=== PATIENT | male | born 1935 | race Caucasian/White ===

== ENCOUNTER 2021-07-02 19:52 | Emergency (ER) | payer MEDICARE, SELFPAY ==
[2021-07-02] VITALS (11 sets, daily range): BP systolic 131–164; BP diastolic 58–93; PULSE 72–91; RESP 11–25; TEMP 36.9; O2SAT 89–100; BMI 29.9
--- NOTE | 2021-07-02 21:14 | DI.RAD.S_ITS ---
PROCEDURE: XR CHEST 1V INDICATIONS: weakness TECHNIQUE: One view of the chest was acquired. COMPARISON: None. FINDINGS: Surgical changes and devices: None. Lungs and pleura: There is a triangular-shaped opacity projecting over the left hemidiaphragm measuring up to 1.4 cm. Lungs are otherwise clear. No pleural effusions or pneumothorax. Mediastinum: Mediastinal contours appear normal. Heart size is normal. Bones and chest wall: No suspicious bony lesions. Overlying soft tissues appear unremarkable. IMPRESSION: 1. Triangular shaped opacity within the left lung base is nonspecific and may represent possible scarring. However, short-term follow-up is recommended to demonstrate stability or resolution. 2. Elsewhere, no acute cardiopulmonary disease. Dictated by: Michele Wen M.D. on 07/02/2021 at 22:49 Approved by: Michele Wen M.D. on 07/02/2021 at 22:51
[2021-07-02 21:58] LABS: Hematocrit 40.7 % (41-53); Mean Corpuscular HGB Conc 31.9 % (30-36); Mean Corpuscular Hemoglobin 29.2 PG (26-34); Mean Corpuscular Volume 91.5 fL (80-100); Platelet Count 229 X10^3/uL (150-400); Red Blood Cell Count 4.45 X10^6/uL (4.5-5.9); Red Cell Distribution Width 14.1 % (11.6-14.8)
[2021-07-02 21:59] LABS: Add Manual Diff / Slide Review YES
[2021-07-02 22:00] LABS: White Blood Cell Count 35.4 X10^3/uL (4.5-11.0)
[2021-07-02 22:05] LABS: Alanine Aminotransferase 17 IU/L (<50); Albumin 4.6 g/dL (3.5-5.0); Albumin Globulin Ratio 1.2 (1.0-2.8); Alkaline Phosphatase 192 U/L (38-126); Aspartate Aminotransferase 26 IU/L (17-59); BUN Creatinine Ratio 27.7 (6-22); Bilirubin Total 0.6 mg/dL (0.2-1.3); Blood Urea Nitrogen 70 mg/dL (9-20); Calcium 10.7 mg/dL (8.4-10.2); Carbon Dioxide 13 mmol/L (22-32); Chloride 111 mmol/L (98-107); Creatine Kinase 53 U/L (55-170); Estimated Glomerular Filt Rate 25 mL/min (>60); Globulin 3.7 g/dL (1.7-4.1); Glucose 117 mg/dL (80-110); HEMOLYSIS < 15 (0-50); Lipase 319 U/L (23-300); Sodium 134 mmol/L (137-145); Total Protein 8.3 g/dL (6.3-8.2)
--- NOTE | 2021-07-02 22:06 | ED.WEAKNESS ---
HPI - Weakness General Chief complaint: Weakness Stated complaint: Worsening Weakness x3 days Time Seen by Provider: 07/02/21 21:14 Source: patient Mode of arrival: Wheelchair History of Present Illness HPI Narrative: 85-year-old male Nonsmoker with history of HTN, hyperlipidemia presents with generalized weakness gradually worsening over the past few months. He states that he feels like his joints are tired and this has been going on for quite some time, and he met with his orthopedist today and has an appointment with his primary care provider early in the week. He denies any change in his medications or diet. He denies any headache, blurred vision or trouble with speech. He denies any chest pain or shortness of breath. He denies any focal problems such as unilateral numbness, tingling or weakness. He states that generally, and on the whole, and very nonspecifically he feels weak. 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 It was placed originally about 5 years ago and failed 2 months ago. He does not suffer urinary retention but instead constantly leaks urine. He was scoped by his urologist about 10 days ago and there were no abnormalities noted in his urethra. He is scheduled for a revision in July. He had been taking Motrin 800mg TID for quite some time but stopped about 4 days ago. He had been taking KCL 20meq BID until this morning. Related Data Home Medications Medication Instructions Recorded Confirmed Prevagen 20 mg PO DAILY 07/03/21 amlodipine 10 mg tablet 10 mg PO DAILY 07/03/21 07/03/21 aspirin 81 mg capsule 81 mg PO DAILY 07/03/21 07/03/21 cholecalciferol (vitamin D3) 50 50 mcg PO DAILY 07/03/21 07/03/21 mcg (2,000 unit) capsule (Vitamin D3) docusate sodium 100 mg capsule 100 mg PO BID 07/03/21 07/03/21 (Colace) ibuprofen 800 mg tablet 800 mg PO Q8H PRN 07/03/21 07/03/21 latanoprost 0.005 % eye drops 1 drp OPHTHALMIC (EYE) DAILY 07/03/21 07/03/21 lisinopril 40 mg tablet 40 mg PO DAILY 07/03/21 07/03/21 metoprolol tartrate 25 mg tablet 25 mg PO BID 07/03/21 07/03/21 [id number] acid 0.4 1 tab PO DAILY 07/03/21 07/03/21 mg-lycopene 300 mcg-lutein 250 mcg tablet (Centrum Silver) nystatin 100,000 unit/gram topical 1 applic TOPICAL BID 07/03/21 07/03/21 powder omega-3 fatty acids 1,000 mg PO DAILY 07/03/21 07/03/21 potassium chloride 20 mEq 20 meq PO BID 07/03/21 07/03/21 tablet,extended release rosuvastatin 40 mg tablet 40 mg PO DAILY 07/03/21 07/03/21 tadalafil 10 mg tablet 10 mg PO DAILY PRN 07/03/21 07/03/21 timolol 0.5 % eye drops 1 drp OPHTHALMIC (EYE) DAILY 07/03/21 07/03/21 triamterene 75 1 tab PO QAM 07/03/21 07/03/21 mg-hydrochlorothiazide 50 mg tablet Allergies Allergy/AdvReac Type Severity Reaction Status Date / Time myacin family Allergy Blister Uncoded 07/02/21 20:03 Review of Systems Review of Systems Narrative: GENERAL: Denies chills, fatigue, malaise, fever, sweats. HEENT: Denies sinus pain, ear pain, sore throat, difficulty swallowing, dizziness. RESPIRATORY: Denies dyspnea, cough, wheezing, hemoptysis, sputum. CARDIOVASCULAR: Denies chest pain, palpitations, orthopnea, edema, GASTROINTESTINAL: Denies nausea, vomiting, abdominal pain, diarrhea, constipation, melena. : Denies dysuria, frequency, incontinence, hematuria, urinary retention. MUSCULOSKELETAL: See HPI SKIN: Denies rash, skin lesions, or other NEUROLOGIC: Denies weakness, headache, numbness, change in speech, confusion, seizures, incoordination. PSYCHIATRIC: No concerning psychosocial issues. 12 point review of systems is negative except for those stated above Patient History Social History Smoking Status: Never smoker Smoking Status: Never smoker alcohol intake frequency: holidays/special occasions only Substance Use Type: does not use Exam Narrative Exam Narrative: GENERAL: [85 year old patient appears stated age. Well-developed patient, in mild distress. HEAD: Atraumatic. Normocephalic. EYES: Pupils equal round and reactive. Extraocular motions intact. No scleral icterus. No injection or drainage. ENT: Nose without bleeding, purulent drainage. Throat without erythema, tonsillar hypertrophy or exudate. Airway patent. NECK: Trachea midline. Non tender CARDIOVASCULAR: Regular rate and rhythm without murmurs, gallops, or rubs. RESPIRATORY: Clear to auscultation. Breath sounds equal bilaterally. No wheezes, rales, or rhonchi. GASTROINTESTINAL: Abdomen soft, non-tender, nondistended. EXTREMITIES: No edema or joint tenderness. BACK: Nontender without deformity or crepitance. No flank tenderness. NEURO: AOx3. SKIN: No rash or erythema of visible areas Initial Vital Signs Initial Vital Signs: Vital Signs Temperature 98.4 F 07/02/21 20:03 Pulse Rate 87 07/02/21 20:03 Respiratory Rate 15 07/02/21 20:03 Blood Pressure 155/93 H 07/02/21 20:03 Pulse Oximetry 94 07/02/21 20:03 Course Course Course Narrative: Fractional Excretion of Sodium (FENa) from [employer] on 07/03/2021 All calculations should be rechecked by clinician prior to use RESULT SUMMARY: 1.8 % FENa Intrinsic e.g. ATN, AIN, glomerulonephritides INPUTS: Serum sodium ?> 134 mEq/L Serum creatinine ?> 2.53 mg/dL Urine sodium ?> 104 mEq/L Urine creatinine ?> 108.6 mg/dL Orders Ordered: ED Orders 07/02/21 21:14 XR chest 1V Stat EKG-12 Lead Stat 07/02/21 21:40 Complete Blood Count AUTO DIFF Stat Comprehensive Metabolic Panel Stat Lipase Stat Troponin & CK Cardiac Panel Stat 07/02/21 22:21 US renal complete Stat 07/02/21 22:32 COVID19 -Nasal RAPID/Pre-Proc Stat 07/02/21 23:30 Creatinine Urine Random Stat Sodium Urine Random Stat 07/03/21 00:56 EKG-12 Lead Stat 07/03/21 01:44 BMP [Basic Metabolic Panel] Stat 07/03/21 03:30 EKG-12 Lead Stat 07/03/21 03:43 VBG [Venous Blood Gas] Stat 07/03/21 04:25 BMP [Basic Metabolic Panel] Stat 07/03/21 04:30 VBG [Venous Blood Gas] Stat Sodium Chloride (Normal Saline 0.9%) 1,000 mls @ 150 mls/hr IV CONT MANOHAR Last Infusion: 07/03/21 05:08 Dose: 0 mls/hr Documented by: Infusion: 07/03/21 00:17 Dose: 150 mls/hr Documented by: Infusion: 07/02/21 23:01 Dose: 0 mls/hr Documented by: Admin: 07/02/21 22:08 Dose: 150 mls/hr Documented by: GILDARDO Dextrose ([email or web address]) 250 mls @ 999 mls/hr IV PRN PRN PRN Reason: Hypoglycemia Last Infusion: 07/02/21 23:11 Dose: 0 mls/hr Documented by: Admin: 07/02/21 22:52 Dose: 250 mls/hr Documented by: GILDARDO Sodium Bicarbonate 100 meq/ (Dextrose) 1,100 mls @ 150 mls/hr IV CONT MANOHAR Last Admin: 07/03/21 03:58 Dose: 150 mls/hr Documented by: SHAWNA Discontinued Medications Albuterol (Albuterol 2.5 Mg/3 Ml Neb (Adult)) 20 mg INH NOW ONE Stop: 07/02/21 22:22 Last Admin: 07/02/21 23:15 Dose: 20 mg Documented by: GILDARDO Furosemide (Furosemide 40 Mg/4 Ml Vial) 40 mg IV NOW ONE Stop: 07/02/21 22:22 Last Admin: 07/02/21 22:56 Dose: 40 mg Documented by: GILDARDO Sodium Chloride (Normal Saline 0.9%) 1,000 mls @ 1,000 mls/hr IV BOLUS ONE Stop: 07/02/21 23:20 Last Infusion: 07/03/21 00:10 Dose: 0 mls/hr Documented by: Admin: 07/02/21 23:01 Dose: 1,000 mls/hr Documented by: GILDARDO Calcium Gluconate 9.3 meq/ (Sodium Chloride) 70 mls @ 140 mls/hr IV NOW ONE Stop: 07/02/21 22:50 Last Infusion: 07/02/21 23:54 Dose: 0 mls/hr Documented by: Admin: 07/02/21 23:16 Dose: 140 mls/hr Documented by: GILDARDO Insulin Human Regular (Insulin Regular 100 Unit/Ml 3 Ml Vial) 5 unit IV NOW ONE Stop: 07/02/21 22:22 Last Admin: 07/02/21 23:09 Dose: 5 unit Documented by: GILDARDO Cosigned by: DAQUAN Sodium Bicarbonate (Sodium Bicarb 8.4% Syringe) 150 meq IV NOW ONE Stop: 07/03/21 03:18 Last Admin: 07/03/21 03:58 Dose: 150 meq Documented by: SHAWNA Consultations Consultation #1: call to hospitalist upon receipt of repeat labs, given minimal improvement and FeNa of 1.8% recommends transfer to facility with nephrology Consultation #2: call to Dr. Walls (Hospitalist at [facility]). Requests Bicarb (3 amps) with drip at 150, repeat labs, improved K/acidemia before transfer possible. Currently no opportunities for dialysis given backed up service Consultation #3: we have spoken with Dr. Walls again and relayed improved EKG, and VBG (chemistries still pending). She is happy to accept patient in transfer Vital Signs Vital signs: Vital Signs - 8 hr 07/02/21 21:30 07/02/21 22:00 07/02/21 22:01 Pulse Rate 72 80 81 Respiratory Rate Blood Pressure 162/70 H 164/76 H Pulse Oximetry 97 97 07/02/21 22:30 07/02/21 23:00 07/02/21 23:04 Pulse Rate 72 78 79 Respiratory Rate 23 25 H Blood Pressure 131/58 L Pulse Oximetry 96 96 07/02/21 23:20 07/02/21 23:30 07/03/21 00:00 Pulse Rate 79 91 H 104 H Respiratory Rate 25 H 11 L 22 Blood Pressure 133/63 129/62 Pulse Oximetry 100 97 07/03/21 00:30 07/03/21 01:00 07/03/21 01:30 Pulse Rate 102 H 99 H 97 H Respiratory Rate 18 21 19 Blood Pressure 141/61 H 129/60 141/63 H Pulse Oximetry 96 97 97 07/03/21 02:00 07/03/21 02:30 07/03/21 03:00 Pulse Rate 99 H 100 H 104 H Respiratory Rate 12 16 25 H Blood Pressure 137/63 161/72 H 151/65 H Pulse Oximetry 95 96 96 07/03/21 03:30 Pulse Rate 101 H Respiratory Rate 13 Blood Pressure 123/58 L Pulse Oximetry 98 MDM - Weakness Lab Data Result diagrams: 07/02/21 21:40 07/03/21 04:25 Labs: Lab Results 07/02/21 07/02/21 07/02/21 Range/Units 21:40 21:40 22:32 WBC 35.4 H* (4.5-11.0) X10^3/uL RBC 4.45 L (4.5-5.9) X10^6/uL Hgb 13.0 L (13.5-17.5) g/dL Hct 40.7 L (41-53) % MCV 91.5 (80-100) fL MCH 29.2 (26-34) PG MCHC 31.9 (30-36) % RDW 14.1 (11.6-14.8) % Plt Count 229 (150-400) X10^3/uL Neut % (Auto) Not Reportable Lymph % (Auto) Not Reportable [place] % (Auto) Not Reportable Eos % (Auto) Not Reportable Baso % (Auto) Not Reportable Lymph # (Auto) Not Reportable [place] # (Auto) Not Reportable Baso # (Auto) Not Reportable Total Counted 100 Seg Neutrophils % 21.0 L (38-70) % Lymphocytes % (Manual) 76.0 H (25-45) % Monocytes % (Manual) 3.0 (2-11) % Neutrophils # (Manual) 7434 H (2697-3413) /uL Smudge Cells 1+ H RBC Morphology Normal morphology VBG pH (7.33-7.43) VBG pCO2 (45-50) mmHg VBG pO2 (35-45) mmHg VBG HCO3 (23-28) mmol/L VBG Total CO2 (24-29) mmol/L VBG O2 Saturation (70-75) % VBG Base Excess (0-4) mmol/L Sodium 134 L (137-145) mmol/L Potassium 8.6 H* (3.4-5.1) mmol/L Chloride 111 H (98-107) mmol/L Carbon Dioxide 13 L (22-32) mmol/L BUN 70 H (9-20) mg/dL Creatinine 2.53 H (0.66-1.25) mg/dL Estimated GFR 25 L (>60) mL/min BUN/Creatinine Ratio 27.7 H (6-22) Glucose 117 H (80-110) mg/dL Calcium 10.7 H (8.4-10.2) mg/dL Total Bilirubin 0.6 (0.2-1.3) mg/dL AST 26 (17-59) IU/L ALT 17 (<50) IU/L Alkaline Phosphatase 192 H (38-126) U/L Total Creatine Kinase 53 L (55-170) U/L CK-MB (CK-2) TNP CK-MB (CK-2) Rel Index TNP Troponin I 0.016 (0.01-0.034) ng/mL Total Protein 8.3 H (6.3-8.2) g/dL Albumin 4.6 (3.5-5.0) g/dL Globulin 3.7 (1.7-4.1) g/dL Albumin/Globulin Ratio 1.2 (1.0-2.8) Lipase 319 H (23-300) U/L Ur Random Sodium (30-90) mmol/L Urine Creatinine mg/dL SARS-CoV-2 (PCR) Negative (Negative) 07/02/21 07/03/21 07/03/21 Range/Units 23:30 01:44 03:43 WBC (4.5-11.0) X10^3/uL RBC (4.5-5.9) X10^6/uL Hgb (13.5-17.5) g/dL Hct (41-53) % MCV (80-100) fL MCH (26-34) PG MCHC (30-36) % RDW (11.6-14.8) % Plt Count (150-400) X10^3/uL Neut % (Auto) Lymph % (Auto) [place] % (Auto) Eos % (Auto) Baso % (Auto) Lymph # (Auto) [place] # (Auto) Baso # (Auto) Total Counted Seg Neutrophils % (38-70) % Lymphocytes % (Manual) (25-45) % Monocytes % (Manual) (2-11) % Neutrophils # (Manual) (5558-5447) /uL Smudge Cells RBC Morphology VBG pH 7.21 L (7.33-7.43) VBG pCO2 35.6 L (45-50) mmHg VBG pO2 28 L (35-45) mmHg VBG HCO3 14 L (23-28) mmol/L VBG Total CO2 15 L (24-29) mmol/L VBG O2 Saturation 42 L (70-75) % VBG Base Excess -13.0 L (0-4) mmol/L Sodium 136 L (137-145) mmol/L Potassium 7.7 H* (3.4-5.1) mmol/L Chloride 112 H (98-107) mmol/L Carbon Dioxide 14 L (22-32) mmol/L BUN 66 H (9-20) mg/dL Creatinine 2.40 H (0.66-1.25) mg/dL Estimated GFR 26 L (>60) mL/min BUN/Creatinine Ratio 27.5 H (6-22) Glucose 115 H (80-110) mg/dL Calcium 10.9 H (8.4-10.2) mg/dL Total Bilirubin (0.2-1.3) mg/dL AST (17-59) IU/L ALT (<50) IU/L Alkaline Phosphatase (38-126) U/L Total Creatine Kinase (55-170) U/L CK-MB (CK-2) CK-MB (CK-2) Rel Index Troponin I (0.01-0.034) ng/mL Total Protein (6.3-8.2) g/dL Albumin (3.5-5.0) g/dL Globulin (1.7-4.1) g/dL Albumin/Globulin Ratio (1.0-2.8) Lipase (23-300) U/L Ur Random Sodium 104 H (30-90) mmol/L Urine Creatinine 108.6 mg/dL SARS-CoV-2 (PCR) (Negative) 07/03/21 07/03/21 Range/Units 04:25 04:30 WBC (4.5-11.0) X10^3/uL RBC (4.5-5.9) X10^6/uL Hgb (13.5-17.5) g/dL Hct (41-53) % MCV (80-100) fL MCH (26-34) PG MCHC (30-36) % RDW (11.6-14.8) % Plt Count (150-400) X10^3/uL Neut % (Auto) Lymph % (Auto) [place] % (Auto) Eos % (Auto) Baso % (Auto) Lymph # (Auto) [place] # (Auto) Baso # (Auto) Total Counted Seg Neutrophils % (38-70) % Lymphocytes % (Manual) (25-45) % Monocytes % (Manual) (2-11) % Neutrophils # (Manual) (4705-2966) /uL Smudge Cells RBC Morphology VBG pH 7.27 L (7.33-7.43) VBG pCO2 45.9 (45-50) mmHg VBG pO2 27 L (35-45) mmHg VBG HCO3 21 L (23-28) mmol/L VBG Total CO2 22 L (24-29) mmol/L VBG O2 Saturation 42 L (70-75) % VBG Base Excess -6.0 L (0-4) mmol/L Sodium 138 (137-145) mmol/L Potassium 5.9 H D (3.4-5.1) mmol/L Chloride 108 H (98-107) mmol/L Carbon Dioxide 21 L (22-32) mmol/L BUN 66 H (9-20) mg/dL Creatinine 2.18 H (0.66-1.25) mg/dL Estimated GFR 29 L (>60) mL/min BUN/Creatinine Ratio 30.3 H (6-22) Glucose 126 H (80-110) mg/dL Calcium 10.1 (8.4-10.2) mg/dL Total Bilirubin (0.2-1.3) mg/dL AST (17-59) IU/L ALT (<50) IU/L Alkaline Phosphatase (38-126) U/L Total Creatine Kinase (55-170) U/L CK-MB (CK-2) CK-MB (CK-2) Rel Index Troponin I (0.01-0.034) ng/mL Total Protein (6.3-8.2) g/dL Albumin (3.5-5.0) g/dL Globulin (1.7-4.1) g/dL Albumin/Globulin Ratio (1.0-2.8) Lipase (23-300) U/L Ur Random Sodium (30-90) mmol/L Urine Creatinine mg/dL SARS-CoV-2 (PCR) (Negative) Point of Care Testing Glucose POC 119 Imaging Data Renal US: Radiologist Impression: [address] [address] Ultrasound Report Signed Patient: Jamal Lin MR#: [id number] : 1935 Acct:[id number] Age/Sex: 85 / M Date of Service: 07/02/21 Loc: ED Accession Number: [id number] ?? Procedure: US renal complete Ordering Provider: Art Sales D.O. PROCEDURE:? US RENAL COMPLETE ? INDICATIONS:? ACUTE RENAL FAILURE ? TECHNIQUE:? Real-time scanning was performed of the kidneys and bladder, with image documentation.? ? COMPARISON:? None. ? FINDINGS:? ? Kidneys:? Right kidney measures 11.8 cm long; left kidney measures 11.6 cm long.? Right renal cortical thickness is 1.5 cm; left renal cortical thickness is 1.5 cm.? Renal cortical echotexture appears grossly within normal limits.? No hydronephrosis.? ? Bladder:? Pre-void bladder was nondistended.? Limited evaluation for intraluminal masses or stones.? On pre-void images, neither ureteral jets are noted with color Doppler interrogation.? (Of note, ureteral jets may not be detectable in up to 25% of cases due to insufficient differences in specific gravity between ureteral and bladder urine).? ? Miscellaneous:? No free pelvic fluid.? ? IMPRESSION:? ? 1. No evidence of hydronephrosis. ? 2. Bilateral mild renal cortical thinning.? ? ? Dictated by: Michele Wen M.D. on 07/03/2021 at 0:10 ? ? Approved by: Michele Wen M.D. on 07/03/2021 at 0:16 ? ECG Data Interpretation: EKG 1 (2121): EKG is normal sinus rhythm rate [70 ] and free of any signs of ischemia or ectopy. No ST segmental elevation or depression. No T wave inversions. NE 152. QRS 164. T waves peaked EKG 2 (111): EKG is normal sinus rhythm rate [103 ] and free of any signs of ischemia or ectopy. No ST segmental elevation or depression. No T wave inversions. NE 126. QRS 140. T waves improved. EKG 3 (7083): EKG is normal sinus rhythm rate [ 100] and free of any signs of ischemia or ectopy. No ST segmental elevation or depression. No T wave inversions. T waves improved. NE 112. QRS 132 Critical Care Time Critical Care Time Critical Care Time: Yes Total Critical Care Time: 60 Attestation: The high probability of a clinically significant, sudden or life threatening deterioration of the [/CV] system(s) required my full and direct attention, intervention and personal management. The aggregate critical care time was 60] minutes. This time is in addition to time spent performing reported procedures but includes the following: [x] Data Review and interpretation [x] Patient assessment and monitoring of vital signs [x] Documentation [x] Medication orders and management Discharge Plan Departure Patient Disposition: [facility] Clinical Impression: Acute hyperkalemia, Metabolic acidosis, Acute kidney injury Prescriptions: No Action latanoprost 0.005 % Drops 1 drp OPHTHALMIC (EYE) DAILY 0RF ibuprofen 800 mg Tablet 800 mg PO Q8H PRN (Reason: Pain, Moderate) 0RF amlodipine 10 mg Tablet 10 mg PO DAILY 0RF timolol 0.5 % Drops 1 drp OPHTHALMIC (EYE) DAILY 0RF docusate sodium [Colace] 100 mg Capsule 100 mg PO BID 0RF triamterene-hydrochlorothiazid 75-50 mg Tablet 1 tab PO QAM 0RF nystatin 100,000 unit/gram Powder 1 applic TOPICAL BID 0RF lisinopril 40 mg tablet 40 mg PO DAILY 0RF Label Comments: Take 1 tablet by mouth once a day Fish Oil Capsule 1,000 mg PO DAILY 0RF rosuvastatin 40 mg Tablet 40 mg PO DAILY 0RF tadalafil 10 mg Tablet 10 mg PO DAILY PRN (Reason: intercourse) 0RF Rx Instructions: administer approximately 30min before sexual activity; do not use more than 1 dose per 24hrs metoprolol tartrate 25 mg Tablet 25 mg PO BID 0RF Centrum Silver 0.4-300-250 mg-mcg-mcg Tablet 1 tab PO DAILY 0RF cholecalciferol (vitamin D3) [Vitamin D3] 50 mcg (2,000 unit) Capsule 50 mcg PO DAILY 0RF potassium chloride 20 mEq Tablet Extended Release 20 meq PO BID 0RF aspirin 81 mg Capsule 81 mg PO DAILY 0RF Prevagen 20 mg 20 mg PO DAILY 0RF Referrals: Harpreet Stanley MD [Primary Care Provider] -
[2021-07-02] MEDS: SODIUM CHLORIDE 0.9% 1,000 ML 150 ML IV (22:08)
[2021-07-02 22:16] LABS: Neutrophils Absolute Manual 7434 /uL (3000-5900); Total Cells Counted 100; Troponin I 0.016 ng/mL (0.01-0.034)
[2021-07-02 22:17] LABS: RBC Morphology Normal Morphology; Smudge Cells 1+
[2021-07-02 22:20] LABS: Potassium 8.6 mmol/L (3.4-5.1)
--- NOTE | 2021-07-02 22:21 | DI.US.S_ITS ---
PROCEDURE: US RENAL COMPLETE INDICATIONS: ACUTE RENAL FAILURE TECHNIQUE: Real-time scanning was performed of the kidneys and bladder, with image documentation. COMPARISON: None. FINDINGS: Kidneys: Right kidney measures 11.8 cm long; left kidney measures 11.6 cm long. Right renal cortical thickness is 1.5 cm; left renal cortical thickness is 1.5 cm. Renal cortical echotexture appears grossly within normal limits. No hydronephrosis. Bladder: Pre-void bladder was nondistended. Limited evaluation for intraluminal masses or stones. On pre-void images, neither ureteral jets are noted with color Doppler interrogation. (Of note, ureteral jets may not be detectable in up to 25% of cases due to insufficient differences in specific gravity between ureteral and bladder urine). Miscellaneous: No free pelvic fluid. IMPRESSION: 1. No evidence of hydronephrosis. 2. Bilateral mild renal cortical thinning. Dictated by: Michele Wen M.D. on 07/03/2021 at 0:10 Approved by: Michele Wen M.D. on 07/03/2021 at 0:16
[2021-07-02] MEDS: DEXTROSE 10 % IN WATER 250 ML IV (22:52)
[2021-07-02] MEDS: FUROSEMIDE 40 MG/4 ML VIAL IV (22:56)
[2021-07-02 22:59] LABS: COVID19 -Nasal RAPID Negative (Negative)
[2021-07-02] MEDS: SODIUM CHLORIDE 0.9% 1,000 ML 1000 ML IV (23:01)
[2021-07-02] MEDS: INSULIN REGULAR 100 UNIT/ML 3 ML VIAL IV (23:09)
[2021-07-02] MEDS: ALBUTEROL 2.5 MG/3 ML NEB (ADULT) 20 MG INH (23:15)
[2021-07-02] MEDS: CALCIUM GLUCONATE 9.3 MEQ in SODIUM CHLORIDE 0.9% 50 ML 140 MEQ IV (23:16)
[2021-07-02 23:58] LABS: Creatinine Urine Random 108.6 mg/dL; Sodium Urine Random 104 mmol/L (30-90)
[2021-07-03] VITALS (15 sets, daily range): BP systolic 106–161; BP diastolic 52–72; PULSE 92–109; RESP 12–25; O2SAT 92–98
[2021-07-03 02:08] LABS: BUN Creatinine Ratio 27.5 (6-22); Blood Urea Nitrogen 66 mg/dL (9-20); Calcium 10.9 mg/dL (8.4-10.2); Carbon Dioxide 14 mmol/L (22-32); Chloride 112 mmol/L (98-107); Estimated Glomerular Filt Rate 26 mL/min (>60); Glucose 115 mg/dL (80-110); HEMOLYSIS < 15 (0-50); Sodium 136 mmol/L (137-145)
[2021-07-03 02:17] LABS: Potassium 7.7 mmol/L (3.4-5.1)
[2021-07-03] MEDS: SODIUM BICARB 8.4% SYRINGE 150 MEQ IV (03:58)
[2021-07-03] MEDS: SODIUM BICARB 8.4% VIAL 100 MEQ in DEXTROSE 5% WATER 1,000 ML 150 MEQ IV (03:58)
[2021-07-03 03:59] LABS: HCO3 VBG 14 mmol/L (23-28); PCO2 VBG 35.6 mmHg (45-50); PO2 VBG 28 mmHg (35-45)
[2021-07-03 04:00] LABS: Oxygen Saturation VBG 42 % (70-75); Total CO2 VBG 15 mmol/L (24-29); pH VBG 7.21 (7.33-7.43)
[2021-07-03 04:42] LABS: HCO3 VBG 21 mmol/L (23-28); PCO2 VBG 45.9 mmHg (45-50); PO2 VBG 27 mmHg (35-45); Total CO2 VBG 22 mmol/L (24-29); pH VBG 7.27 (7.33-7.43)
[2021-07-03 04:43] LABS: Oxygen Saturation VBG 42 % (70-75)
[2021-07-03 04:48] LABS: BUN Creatinine Ratio 30.3 (6-22); Blood Urea Nitrogen 66 mg/dL (9-20); Calcium 10.1 mg/dL (8.4-10.2); Carbon Dioxide 21 mmol/L (22-32); Chloride 108 mmol/L (98-107); Estimated Glomerular Filt Rate 29 mL/min (>60); Glucose 126 mg/dL (80-110); HEMOLYSIS < 15 (0-50); Sodium 138 mmol/L (137-145)
[2021-07-03 04:49] LABS: Potassium 5.9 mmol/L (3.4-5.1)
--- NOTE | 2021-07-03 06:31 | PC.NURSE ---
his bicarb gtt is infusing at 150 ml per hour with transport crew.
== END 2021-07-03 06:55 | disposition short-term general hospital (02) ==
PROVIDERS: Emergency Provider Emergency Medicine; PCP Internal Medicine
DX: N17.9 Acute kidney failure, unspecified (principal); E87.5 Hyperkalemia; E87.2 Acidosis; Z20.822 Contact with and (suspected) exposure to COVID-19
CPT/HCPCS: 36415; 71045; 76770; 80048; 80053; 82550; 82570; 82805; 82962; 83690; 84300; 84484; 85007; 85025; 87635; 93005; 96361; 96374; 96375; 99285; 99291; C9803; J0610; J1940; J7613

== ENCOUNTER 2022-03-15 17:14 | Inpatient (IN) | payer OTHER, SELFPAY ==
[2022-03-15] VITALS (34 sets, daily range): BP systolic 161–217; BP diastolic 79–106; PULSE 72–151; RESP 12–50; TEMP 36.3–36.6; O2SAT 92–99; BMI 32.3
--- NOTE | 2022-03-15 17:26 | DI.RAD.S_ITS ---
PROCEDURE: XR CHEST 1V INDICATIONS: chest pain TECHNIQUE: One view of the chest was acquired. COMPARISON: [facility], CR, XR CHEST 1V, 07/02/2021, 21:36. FINDINGS: Surgical changes and devices: None. Lungs and pleura: Large left pneumothorax with shift of the mediastinal structures to the right. The right lung is clear. No pleural effusions. Mediastinum: Mediastinal contours appear normal. Heart size is normal. Bones and chest wall: No suspicious bony lesions. Overlying soft tissues appear unremarkable. IMPRESSION: 1. Large left tension pneumothorax. 2. Findings conveyed to Dr. Oliveira in the emergency room at 16:56 hours [place] standard time. Dictated by: Miguelina Madrid M.D. on 03/15/2022 at 16:55 Approved by: Miguelina Madrid M.D. on 03/15/2022 at 16:58
[2022-03-15] MEDS: ASPIRIN 81 MG CHEW TAB 324 MG PO (17:34)
[2022-03-15 17:46] LABS: Hematocrit 42.7 % (41-53); Mean Corpuscular HGB Conc 32.7 % (30-36); Mean Corpuscular Hemoglobin 28.8 PG (26-34); Mean Corpuscular Volume 88.1 fL (80-100); Platelet Count 209 X10^3/uL (150-400); Red Blood Cell Count 4.85 X10^6/uL (4.5-5.9)
[2022-03-15 17:56] LABS: PTT Partial Thromboplastin Tim 33 SECONDS (26-36)
[2022-03-15 18:06] LABS: Add Manual Diff / Slide Review YES; White Blood Cell Count 25.5 X10^3/uL (4.5-11.0)
--- NOTE | 2022-03-15 18:08 | ED.GENADULT ---
HPI - General Adult General Chief complaint: Shortness of Breath/Dyspnea Stated complaint: SHORT OF BREATH, PAIN IN LT SHOULDER BY NECK Time Seen by Provider: 03/15/22 17:28 Source: patient Mode of arrival: Ambulatory History of Present Illness HPI narrative: 86-year-old gentleman with a history of aortic stenosis being followed by his sports athletic trainer, hypertension, hyperlipidemia, CLL with chronically elevated white blood cell count nonsmoker who presents complaining of left chest pain, shortness a breath pain radiating up to the left shoulder getting worse over the last 48 hours. He is not complaining of any palpitations. No fevers, slight cough but nonproductive, no vomiting, nausea, abdominal pain, diarrhea. Related Data Home Medications Medication Instructions Recorded Confirmed amlodipine 10 mg tablet 10 mg PO DAILY 07/03/21 03/15/22 cholecalciferol (vitamin D3) 50 50 mcg PO BID 07/03/21 03/15/22 mcg (2,000 unit) capsule (Vitamin D3) docusate sodium 100 mg capsule 100 mg PO BID 07/03/21 03/15/22 (Colace) latanoprost 0.005 % eye drops 1 drp ophthalmic (eye) DAILY 07/03/21 03/15/22 lisinopril 40 mg tablet 40 mg PO DAILY 07/03/21 03/15/22 [id number] acid 0.4 1 tab PO DAILY 07/03/21 03/15/22 mg-lycopene 300 mcg-lutein 250 mcg tablet (Centrum Silver) nystatin 100,000 unit/gram topical 1 applic topical BID 07/03/21 03/15/22 powder omega-3 fatty acids 1,400 mg PO DAILY 07/03/21 03/15/22 rosuvastatin 40 mg tablet 40 mg PO DAILY 07/03/21 03/15/22 tadalafil 10 mg tablet 10 mg PO DAILY PRN intercourse 07/03/21 03/15/22 timolol 0.5 % eye drops 1 drp ophthalmic (eye) DAILY 07/03/21 03/15/22 triamterene 75 1 tab PO QAM 07/03/21 03/15/22 mg-hydrochlorothiazide 50 mg tablet Allergies Allergy/AdvReac Type Severity Reaction Status Date / Time myacin family Allergy Blister Uncoded 03/15/22 17:24 Review of Systems Review of Systems Narrative: Remainder of complete review of systems is otherwise unremarkable except for that included in the HPI. Patient History Medical History (Updated 03/16/22 @ 06:36 by KIRA Weller-) Aortic stenosis CLL (chronic lymphocytic leukemia) History of prostate cancer Hyperlipidemia Hypertension Surgical History (Updated 03/16/22 @ 06:36 by KIRA Weller-LEO) History of cataract extraction History of prostatectomy Status post implantation of artificial urinary sphincter Family History Father Congestive heart failure Mother Hypertension Social History Smoking Status: Never smoker Smoking Status: Never smoker alcohol intake frequency: holidays/special occasions only Substance Use Type: does not use Exam Initial Vital Signs Initial Vital Signs: Vital Signs Temperature 98 F 03/15/22 17:18 Pulse Rate 91 H 03/15/22 17:18 Respiratory Rate 18 03/15/22 17:18 Blood Pressure 210/94 H 03/15/22 17:18 Pulse Oximetry 96 03/15/22 17:18 Oxygen Delivery Method 03/15/22 17:18 General: Healthy appearing, in no acute distress. Able to give a complete and coherent history. Well-nourished well-developed HEENT: Moist mucous membranes, normal sclera with reactive pupils, Neck: No JVD, supple Respiratory: Lungs with diminished air sounds on the left side with mild paradoxical breathing. No obvious rhonchi or wheeze. Cardiac: Regular rate and rhythm , sounds are quite distant I do not appreciate a significant murmur Abdomen: Soft, nontender, good bowel tones, no flank pain Skin: Warm and dry, no rashes Neurologic: Grossly neurologically intact with no obvious asymmetries or abnormalities Extremities: No trauma, well perfused Psych: Cooperative, appropriate insight and affect Procedures Chest Tube Chest Tube 1: Time of procedure: 19:15 Chest Tube Location: right and anterior axillary line Chest Tube Prep: Yes sterile drapes applied (Chlorhexidine prep) Local Anesthetic: lidocaine 1% and with epi Amount of anesthesia used (mL): 10 Incision Made With: #11 blade Post Procedure: sutured to skin and sterile dressing applied Tube Drainage: none Post Procedure CXR?: Yes Patient Tolerated Procedure: Yes Progress: Mal pigtail catheter used without complication Procedural Sedation Time of procedure: 19:17 Consent signed: Yes Time out performed: Yes Indication: other (Chest tube placement) ASA Class: III Mallampati Airway Classification: Class III Preparation: classroom monitor applied, pulse oximeter, capnometry used, supplemental O2 applied, suction/airway equipment at bedside and IV secured Fentanyl: IV Fentanyl dose (mcg): 50 Midazolam: IV Midazolam dose (mg): 2 Intraservice time/total sedation time (min): 18 ED Sedation Level: Minimal Patient Tolerated Procedure: Well Complications: none Course Orders Ordered: Acetaminophen (Acetaminophen 325 Mg Tablet) 650 mg PO Q6H PRN PRN Reason: Fever/Mild Pain (1-3) Al Hydrox/Mg Hydrox/Simethicone (Mag Hydrox/Alum/Simeth 30 Ml Udc) 30 ml PO Q6HR PRN PRN Reason: Dyspepsia Amlodipine Besylate (Amlodipine 5 Mg Tablet) 10 mg PO DAILY [facility] Atorvastatin Calcium (Atorvastatin 20 Mg Tablet) 80 mg PO DAILY [facility] Calcium Carbonate (Calcium Carbonate 500 Mg Tab) 1,000 mg PO Q4HR PRN PRN Reason: Dyspepsia Docusate Sodium (Docusate 100 Mg Capsule) 100 mg PO BID [facility] Last Admin: 03/15/22 21:47 Dose: 100 mg Documented By: ALDO Hydromorphone HCl (Hydromorphone 0.5 Mg Inj) 0.5 mg IV Q4H PRN PRN Reason: Pain, severe (6-10) Last Admin: 03/16/22 05:05 Dose: 0.5 mg Documented By: Admin: 03/15/22 23:57 Dose: 0.5 mg Documented By: Admin: 03/15/22 19:59 Dose: 0.5 mg Documented By: DIMA Sodium Chloride (Normal Saline 0.9%) 1,000 mls @ 84 mls/hr IV CONT [facility] Stop: 03/16/22 08:44 Last Admin: 03/16/22 02:28 Dose: 84 mls/hr Documented By: ALDO POTASSIUM CHLORIDE IN WATER (Potassium Cl 10 Meq/100 Ml Jodie) 10 meq in 100 mls @ 100 mls/hr IV Q1H [facility] Stop: 03/16/22 10:44 Latanoprost (Latanoprost 0.005% Ophth 2.5 Ml) 1 drops EYE-BOTH DAILY [facility] Lisinopril (Lisinopril 20 Mg Tablet) 40 mg PO DAILY [facility] Naloxone HCl (Naloxone 0.4 Mg/Ml Vial) 0.2 mg IV Q2MIN PRN PRN Reason: Opiate Reversal Non-Formulary Medication (Timolol) 1 drop OPHTHALMIC (EYE) DAILY [facility] Ondansetron HCl (Ondansetron 4 Mg Odt) 4 mg PO Q8HR PRN PRN Reason: Nausea And Vomiting Oxycodone HCl (Oxycodone Ir 5 Mg Tablet) 5 mg PO Q3H PRN PRN Reason: Pain, Moderate (4-6) Oxycodone/Acetaminophen (Oxycodone/Acetaminophen 5/325 Tablet) 1 tab PO Q6HR PRN PRN Reason: Pain, Moderate (4-6) Sennosides (Sennosides 8.6 Mg Tablet) 17.2 mg PO BEDTIME [facility] Last Admin: 03/15/22 21:47 Dose: 17.2 mg Documented By: ALDO Timolol Maleate (Timolol 0.5% Ophth) 1 drops EYE-BOTH DAILY [facility] Triamterene/Hydrochlorothiazide (Triamterene/Hctz 37.5/25 Capsule) 1 cap PO DAILY [facility] Discontinued Medications Aspirin (Aspirin 81 Mg Chew Tab) 324 mg PO NOW ONE Stop: 03/15/22 17:27 Last Admin: 03/15/22 17:34 Dose: 324 mg Documented By: MARCO Fentanyl (Fentanyl 100 Mcg/2 Ml Inj) 100 mcg 1 mcg/kg (100 mcg) IV NOW ONE Stop: 03/15/22 18:28 Last Admin: 03/15/22 18:38 Dose: 50 mcg Documented By: MARINO POTASSIUM CHLORIDE IN WATER (Potassium Cl 10 Meq/100 Ml Jodie) 10 meq in 100 mls @ 100 mls/hr IV Q1H [facility] Stop: 03/16/22 01:14 Midazolam HCl (Midazolam 2 Mg/2 Ml Vial) 2 mg IV NOW ONE Stop: 03/15/22 18:28 Last Admin: 03/15/22 18:38 Dose: 2 mg Documented By: MARINO Oxycodone/Acetaminophen (Oxycodone/Acetaminophen 5/325 Tablet) 1 tab PO NOW ONE Stop: 03/15/22 19:14 Last Admin: 03/15/22 19:19 Dose: 1 tab Documented By: MARCO Potassium Chloride (Potassium Chloride 20 Meq Tab) 40 meq PO NOW ONE Stop: 03/15/22 19:29 Last Admin: 03/15/22 19:37 Dose: 40 meq Documented By: DIMA Potassium Chloride (Potassium Chloride 20 Meq Tab) 40 meq PO NOW ONE Stop: 03/15/22 23:08 Last Admin: 03/15/22 23:48 Dose: 40 meq Documented By: ALDO Vital Signs Vital signs: Vital Signs - 8 hr 03/15/22 17:18 03/15/22 17:55 03/15/22 17:57 Temperature 98 F Pulse Rate 91 H 151 H 97 H Respiratory Rate 18 Blood Pressure 210/94 H Pulse Oximetry 96 92 Oxygen Delivery Method Room Air 03/15/22 17:57 03/15/22 18:00 03/15/22 18:00 Temperature Pulse Rate 87 Respiratory Rate 19 Blood Pressure 208/96 H 173/84 H Pulse Oximetry 97 Oxygen Delivery Method 03/15/22 18:05 03/15/22 18:10 03/15/22 18:15 Temperature Pulse Rate 86 82 82 Respiratory Rate 26 H 17 19 Blood Pressure Pulse Oximetry 99 99 99 Oxygen Delivery Method 03/15/22 18:20 03/15/22 18:25 03/15/22 18:30 Temperature Pulse Rate 84 85 Respiratory Rate 31 H 24 Blood Pressure 178/95 H Pulse Oximetry 99 99 Oxygen Delivery Method 03/15/22 18:30 03/15/22 18:35 03/15/22 18:40 Temperature Pulse Rate 82 83 Respiratory Rate 25 H 45 H Blood Pressure 182/93 H Pulse Oximetry 99 99 Oxygen Delivery Method 03/15/22 18:40 03/15/22 18:45 03/15/22 18:45 Temperature Pulse Rate 83 81 Respiratory Rate 32 H 24 Blood Pressure 166/90 H Pulse Oximetry 99 98 Oxygen Delivery Method 03/15/22 18:50 03/15/22 18:50 Temperature Pulse Rate 80 Respiratory Rate 30 H Blood Pressure 174/95 H Pulse Oximetry 99 Oxygen Delivery Method Medical Decision Making Lab Data 03/15/22 17:35 03/15/22 17:35 Labs: Lab Results 03/15/22 03/15/22 03/15/22 Range/Units 17:25 17:35 17:35 WBC 25.5 H (4.5-11.0) X10^3/uL RBC 4.85 (4.5-5.9) X10^6/uL Hgb 14.0 (13.5-17.5) g/dL Hct 42.7 (41-53) % MCV 88.1 (80-100) fL MCH 28.8 (26-34) PG MCHC 32.7 (30-36) % RDW 15.0 H (11.6-14.8) % Plt Count 209 (150-400) X10^3/uL Neut % (Auto) Not Reportable Lymph % (Auto) Not Reportable [place] % (Auto) Not Reportable Eos % (Auto) Not Reportable Baso % (Auto) Not Reportable Lymph # (Auto) Not Reportable [place] # (Auto) Not Reportable Baso # (Auto) Not Reportable Total Counted 100 Seg Neutrophils % 32.0 L (38-70) % Lymphocytes % (Manual) 1.0 L (25-45) % Atypical Lymphs % 62.0 H ( - 0) % Monocytes % (Manual) 5.0 (2-11) % Neutrophils # (Manual) 8160 H (2324-8500) /uL Smudge Cells 3+ H RBC Morphology See below Anisocytosis 1+ H PT 12.0 (10.1-12.7) SECONDS INR 1.0 (0.9-1.3) APTT 33 (26-36) SECONDS Sodium (137-145) mmol/L Potassium (3.4-5.1) mmol/L Chloride (98-107) mmol/L Carbon Dioxide (22-32) mmol/L BUN (9-20) mg/dL Creatinine (0.66-1.25) mg/dL Estimated GFR (>60) mL/min BUN/Creatinine Ratio (6-22) Glucose (80-110) mg/dL Calcium (8.4-10.2) mg/dL Magnesium (1.6-2.3) mg/dL Total Bilirubin (0.2-1.3) mg/dL AST (17-59) IU/L ALT (<50) IU/L Alkaline Phosphatase (38-126) U/L Total Creatine Kinase (55-170) U/L CK-MB (CK-2) CK-MB (CK-2) Rel Index Troponin I (0.01-0.034) ng/mL NT-Pro-B Natriuret Pep (<450) pg/mL Total Protein (6.3-8.2) g/dL Albumin (3.5-5.0) g/dL Globulin (1.7-4.1) g/dL Albumin/Globulin Ratio (1.0-2.8) Lipase (23-300) U/L SARS-CoV-2 (PCR) Negative (Negative) Influenza A (RT-PCR) Flu a negative (NEGATIVE) Influenza B (RT-PCR) Flu b negative (NEGATIVE) RSV (PCR) Negative (Negative) 03/15/22 03/15/22 Range/Units 17:35 17:35 WBC (4.5-11.0) X10^3/uL RBC (4.5-5.9) X10^6/uL Hgb (13.5-17.5) g/dL Hct (41-53) % MCV (80-100) fL MCH (26-34) PG MCHC (30-36) % RDW (11.6-14.8) % Plt Count (150-400) X10^3/uL Neut % (Auto) Lymph % (Auto) [place] % (Auto) Eos % (Auto) Baso % (Auto) Lymph # (Auto) [place] # (Auto) Baso # (Auto) Total Counted Seg Neutrophils % (38-70) % Lymphocytes % (Manual) (25-45) % Atypical Lymphs % ( - 0) % Monocytes % (Manual) (2-11) % Neutrophils # (Manual) (5518-8039) /uL Smudge Cells RBC Morphology Anisocytosis PT (10.1-12.7) SECONDS INR (0.9-1.3) APTT (26-36) SECONDS Sodium 137 (137-145) mmol/L Potassium 3.3 L (3.4-5.1) mmol/L Chloride 93 L (98-107) mmol/L Carbon Dioxide 33 H (22-32) mmol/L BUN 29 H (9-20) mg/dL Creatinine 1.35 H (0.66-1.25) mg/dL Estimated GFR 52 L (>60) mL/min BUN/Creatinine Ratio 21.5 (6-22) Glucose 182 H (80-110) mg/dL Calcium 9.6 (8.4-10.2) mg/dL Magnesium 2.4 H (1.6-2.3) mg/dL Total Bilirubin 0.5 (0.2-1.3) mg/dL AST 33 (17-59) IU/L ALT 19 (<50) IU/L Alkaline Phosphatase 89 (38-126) U/L Total Creatine Kinase 59 (55-170) U/L CK-MB (CK-2) TNP CK-MB (CK-2) Rel Index TNP Troponin I 0.019 (0.01-0.034) ng/mL NT-Pro-B Natriuret Pep 207 (<450) pg/mL Total Protein 8.1 (6.3-8.2) g/dL Albumin 4.6 (3.5-5.0) g/dL Globulin 3.5 (1.7-4.1) g/dL Albumin/Globulin Ratio 1.3 (1.0-2.8) Lipase 168 (23-300) U/L SARS-CoV-2 (PCR) (Negative) Influenza A (RT-PCR) (NEGATIVE) Influenza B (RT-PCR) (NEGATIVE) RSV (PCR) (Negative) Imaging Data Chest x-ray: Radiologist's Impression: FINDINGS:? ? Surgical changes and devices:? None.? ? Lungs and pleura:? Large left pneumothorax with shift of the mediastinal structures to the right.? The right lung is clear.? No pleural effusions. ? Mediastinum:? Mediastinal contours appear normal.? Heart size is normal.? ? Bones and chest wall:? No suspicious bony lesions.? Overlying soft tissues appear unremarkable.? ? IMPRESSION:? ? 1. Large left tension pneumothorax. ? 2. Findings conveyed to Dr. Oliveira in the emergency room at 16:56 hours [place] standard time. ? ? Dictated by: Miguelina Madrid M.D. on 03/15/2022 at 16:55 ? ? ECG Data Interpretation: Sinus rhythm with occasional PVC Right bundle branch block No acute ischemic changes MDM Narrative Medical decision making narrative: CC: Increasing shortness of breath and left shoulder pain. This is a new complaint uncertain diagnosis with possibility for life-threatening etiology Complicating co-morbidities: Hypertension, hyperlipidemia, aortic stenosis, CLL, age Corroborating data: Data collected from: patient, Medical records reviewed: No significant medical records are available for review Differential considered: Acute coronary syndrome, pneumonia, dissection, pneumothorax, mass or tumor, rib fracture, Exam documented above, pertinent findings include: Decreased breath sounds on the left, trachea is not deviated he is speaking in full sentences and comfortable with [address] Lab Test results independently reviewed as above. Pertinent findings: CBC shows a white count of 25.5 consistent with his CLL. Hemoglobin is 14 hematocrit is 42.7 Chemistries show slightly low potassium at 3.3, renal function is improved from previously with slight bump at 1.5 for creatinine. Magnesium is at 2.4 which is slightly elevated. Respiratory swab shows no COVID, flu or RSV Independently reviewed EKG as above Imaging studies independently reviewed: Initial chest x-ray shows large left pneumothorax with tension physiology Repeat chest x-ray postprocedure shows appropriately placed tube and lung re-expanded nicely Consultations: Care is discussed with Dr. Messer, general surgery. She will consult on the patient. Care is discussed with hospitalist service who will admit the patient Treatments: Conscious sedation, chest tube placement, pain management with parenteral and oral narcotics, potassium replacement with oral supplements Re-evaluations: Postprocedure patient is doing quite well he sees waking up from his sedation. Slightly increased pain and Percocet is given. Chest tube is attached to suction and is working appropriately. Patient and are fully informed of plans, successive procedure questions are answered Discussion: 86-year-old gentleman with spontaneous pneumothorax present now for 48 hours. No evidence of acute coronary syndrome or cardiac involvement. Shortness of breath is better as his lung re-expand. Because it has been 48 hours I would be surprised if there is some continued postop fashion atelectasis. Will watch white count with signs of infection but needs to be cautious given his CLL. Will make sure Respiratory therapy is encouraging aggressive pulmonary toilet to help with the lung reexpansion. No indication of infection and antibiotics are not started. Disposition: Admit Critical Care Time Critical Care Time Critical Care Time: Yes Total Critical Care Time: 37 Attestation: Critical care time is separate from other billable procedures. There is a high probability of a significant, sudden or life-threatening deterioration that requires my full and direct attention, intervention and personal management. This critical care time includes consultation with family and other consulting doctors, review of records, and interpretation of data from labs, EKGs and imaging as well as managements of Discharge Plan Departure Patient Disposition: Admitted As Inpatient Clinical Impression: Pneumothorax, spontaneous, tension, Acute hypokalemia Chest pain Qualifiers: Chest pain type: other chest pain Qualified Code(s): R07.89 - Other chest pain Admit Date/Time: 03/15/22 19:05 Admit Provider: Lara Booker
[2022-03-15 18:09] LABS: Anisocytosis 1+; Neutrophils Absolute Manual 8160 /uL (3000-5900); Total Cells Counted 100
[2022-03-15 18:10] LABS: Smudge Cells 3+
[2022-03-15 18:12] LABS: Influenza A - CEPHEID Flu A NEGATIVE (NEGATIVE); Influenza B - CEPHEID Flu B NEGATIVE (NEGATIVE); Respiratory Syncytial Virus Negative (Negative)
[2022-03-15 18:13] LABS: Alanine Aminotransferase 19 IU/L (<50); Albumin 4.6 g/dL (3.5-5.0); Albumin Globulin Ratio 1.3 (1.0-2.8); Alkaline Phosphatase 89 U/L (38-126); Aspartate Aminotransferase 33 IU/L (17-59); BUN Creatinine Ratio 21.5 (6-22); Bilirubin Total 0.5 mg/dL (0.2-1.3); Blood Urea Nitrogen 29 mg/dL (9-20); Calcium 9.6 mg/dL (8.4-10.2); Carbon Dioxide 33 mmol/L (22-32); Chloride 93 mmol/L (98-107); Creatine Kinase 59 U/L (55-170); Estimated Glomerular Filt Rate 52 mL/min (>60); Globulin 3.5 g/dL (1.7-4.1); Glucose 182 mg/dL (80-110); HEMOLYSIS 20 (0-50); Lipase 168 U/L (23-300); Magnesium 2.4 mg/dL (1.6-2.3); Potassium 3.3 mmol/L (3.4-5.1); Sodium 137 mmol/L (137-145); Total Protein 8.1 g/dL (6.3-8.2)
[2022-03-15 18:22] LABS: NT-proBNP (BNP-Adult 18+) 207 pg/mL (<450)
[2022-03-15 18:22] LABS: COVID-19 CEPHEID 4-PLEX PCR Negative (Negative)
[2022-03-15 18:24] LABS: Troponin I 0.019 ng/mL (0.01-0.034)
--- NOTE | 2022-03-15 18:27 | DI.RAD.S_ITS ---
PROCEDURE: XR CHEST 1V INDICATIONS: post chest tube TECHNIQUE: One view of the chest was acquired. COMPARISON: [facility], , XR CHEST 1V, 03/15/2022, 17:34. FINDINGS: Surgical changes and devices: Left chest tube is present overlying the medial inferior aspect of the left lobe. Lungs and pleura: There is persistent left pneumothorax a minimally improved compared to prior exam. Central opacity is present likely representing lung atelectasis. Mediastinum: There remains left right mediastinal shift. Heart size is normal. Bones and chest wall: No suspicious bony lesions. Overlying soft tissues appear unremarkable. IMPRESSION: Interval chest tube placement with minimal improvement of pneumothorax and midline shift. Dictated by: Ashanti Cavazos M.D. on 03/15/2022 at 19:39 Approved by: Ashanti Cavazos M.D. on 03/15/2022 at 19:40
[2022-03-15] MEDS: MIDAZOLAM 2 MG/2 ML VIAL IV (18:38)
[2022-03-15] MEDS: fentaNYL 100 MCG/2 ML INJ IV (18:38)
--- NOTE | 2022-03-15 18:57 | PC.NURSE ---
Pt reports SOB x 2 days, pt AAOx3, 93% RA. Pt noted to have left sided pneumothorax on XR. Pt taken to rm 1, placed on cardiac monitoring, ETCO2 and 2L O2, RT and Dr Westfall at bedside. time out called for L pigtail chest tube placement. Meds given per APR. Pt AAOx3 entire procedure. Chest tube placed without complication. Connected to LIS. CXR obtained for confirmation. Pt reports pain is controlled at this time.
[2022-03-15] MEDS: OXYCODONE/ACETAMINOPHEN 5/325 TABLET 1 TAB PO (19:19)
[2022-03-15] MEDS: POTASSIUM CHLORIDE 20 MEQ TAB 40 MEQ PO ×2 (19:37→23:48)
[2022-03-15] MEDS: HYDROMORPHONE 0.5 MG INJ IV ×2 (19:59→23:57)
--- NOTE | 2022-03-15 21:06 | PM.HP.1 ---
History of Present Illness History of Present Illness Date Patient Seen: 03/15/22 Time Patient Seen: 21:06 Chief complaint: SHORT OF BREATH, PAIN IN LT SHOULDER BY NECK Narrative: Jamal Lin is an 86-year-old female with a history of aortic stenosis, history of prostate cancer with prostatectomy and artificial urethral sphincter placement, essential hypertension hyperlipidemia, CCL with chronically elevated WBC, who presented to the ED today complaining of approximately 48 hours of increasing shortness of breath with left sided lower left chest pain radiating up into the left shoulder. On chest x-ray patient was found to have a large left tension pneumothorax, subsequently a left chest tube was placed in ED. On admit patient reports that shortness of breath is greatly improved as is chest discomfort but is gradually coming back worse in the upper left shoulder area. He denies headache, changes in vision, difficulty swallowing, speech impairment, weakness, numbness, tingling, difficulty with ambulation, recent falls, head injury, LOC, fever, body aches, chills, cough, recent exposure to illness, abdominal pain, nausea, vomiting, urinary incontinence/retention, dysuria, frequency, urgency, hematuria, bowel changes, constipation, incontinence, melena, rashes, recent changes to medication, illness, injury, or trauma. Patient demonstrated hypertensive urgency with tachypnea in the ED blood pressures 210/106, 191/96, respiratory rate 23-44. At the time of admit continues to be mildly hypertensive, and significantly tachypneic, but maintains O2 saturations above 95% room air. Admit vital signs temp 98?, 189/94, 72, 44, 98% on room air. WBC 25.5 (improved from previous labs), mild hypokalemia potassium 3.3, chloride 93, bicarb 33, BUN 29, creatinine 1.35, glucose 182, GFR 52: No KATY as per evaluation of labs from 07/03/2021: Creatinine 2.18, 2.4, 2.53, GFR 25, 26, 29, WBC 35.4. Referencing labs from 07/03/2021 BNP 207, initial troponin 0.019, lipase WNL, magnesium slightly elevated 2.4, COVID, influenza a/B/RSV negative. Post left chest tube placement noted minimal improvement thorax midline shift. EKG demonstrated sinus rhythm with occasional PVCs right bundle-branch block, it should be noted patient had no previous EKGs for comparison in the system. Patient admitted for large left tension pneumothorax,, hypertensive urgency and mild hypokalemia. Dr. Desiree Messer General surgery to consult. Patient History Medical History (Updated 03/16/22 @ 06:36 [facility] Aortic stenosis CLL (chronic lymphocytic leukemia) History of prostate cancer Hyperlipidemia Hypertension Surgical History (Updated 03/16/22 @ 06:36 [facility] History of cataract extraction History of prostatectomy Status post implantation of artificial urinary sphincter Family & Social History Family History Father Congestive heart failure Mother Hypertension Safety & Behavioral: Feels Safe in Current Yes Environment Been Physically Hurt or No Threatened By a Person Tobacco & Substance use: Smoking Status Never smoker alcohol intake frequency holiday/special occasion Substance Use Type does not use Meds Home Medications and Allergies Home Medications Medication Instructions Recorded Confirmed Type amlodipine 10 mg tablet 10 mg PO DAILY 07/03/21 03/15/22 History cholecalciferol (vitamin D3) 50 50 mcg PO BID 07/03/21 03/15/22 History mcg (2,000 unit) capsule (Vitamin D3) docusate sodium 100 mg capsule 100 mg PO BID 07/03/21 03/15/22 History (Colace) latanoprost 0.005 % eye drops 1 drp ophthalmic (eye) DAILY 07/03/21 03/15/22 History lisinopril 40 mg tablet 40 mg PO DAILY 07/03/21 03/15/22 History ksewvusr-apy-nkmie acid 0.4 1 tab PO DAILY 07/03/21 03/15/22 History mg-lycopene 300 mcg-lutein 250 mcg tablet (Centrum Silver) nystatin 100,000 unit/gram topical 1 applic topical BID 07/03/21 03/15/22 History powder omega-3 fatty acids 1,400 mg PO DAILY 07/03/21 03/15/22 History rosuvastatin 40 mg tablet 40 mg PO DAILY 07/03/21 03/15/22 History tadalafil 10 mg tablet 10 mg PO DAILY PRN intercourse 07/03/21 03/15/22 History timolol 0.5 % eye drops 1 drp ophthalmic (eye) DAILY 07/03/21 03/15/22 History triamterene 75 1 tab PO QAM 07/03/21 03/15/22 History mg-hydrochlorothiazide 50 mg tablet Allergies Allergy/AdvReac Type Severity Reaction Status Date / Time myacin family Allergy Blister Uncoded 03/15/22 17:24 Review of Systems Review of Systems Narrative: All 12 point systems reviewed with the patient and are negative except otherwise documented. Exam Vital Signs (past 8 hours): - 03/15/22 17:18 03/15/22 17:55 03/15/22 17:57 Temperature 98 F Pulse Rate 91 H 151 H 97 H Respiratory Rate 18 Blood Pressure 210/94 H Pulse Oximetry 96 92 Oxygen Delivery Method Room Air 03/15/22 17:57 03/15/22 18:00 03/15/22 18:00 Temperature Pulse Rate 87 Respiratory Rate 19 Blood Pressure 208/96 H 173/84 H Pulse Oximetry 97 Oxygen Delivery Method 03/15/22 18:05 03/15/22 18:10 03/15/22 18:15 Temperature Pulse Rate 86 82 82 Respiratory Rate 26 H 17 19 Blood Pressure Pulse Oximetry 99 99 99 Oxygen Delivery Method 03/15/22 18:20 03/15/22 18:25 03/15/22 18:30 Temperature Pulse Rate 84 85 Respiratory Rate 31 H 24 Blood Pressure 178/95 H Pulse Oximetry 99 99 Oxygen Delivery Method 03/15/22 18:30 03/15/22 18:35 03/15/22 18:40 Temperature Pulse Rate 82 83 Respiratory Rate 25 H 45 H Blood Pressure 182/93 H Pulse Oximetry 99 99 Oxygen Delivery Method 03/15/22 18:40 03/15/22 18:45 03/15/22 18:45 Temperature Pulse Rate 83 81 Respiratory Rate 32 H 24 Blood Pressure 166/90 H Pulse Oximetry 99 98 Oxygen Delivery Method 03/15/22 18:50 03/15/22 18:50 03/15/22 18:55 Temperature Pulse Rate 80 Respiratory Rate 30 H Blood Pressure 174/95 H 175/101 H Pulse Oximetry 99 Oxygen Delivery Method 03/15/22 18:55 03/15/22 18:58 03/15/22 18:58 Temperature Pulse Rate 81 82 Respiratory Rate 33 H 36 H Blood Pressure 178/101 H Pulse Oximetry 99 97 Oxygen Delivery Method 03/15/22 19:00 03/15/22 19:00 03/15/22 19:05 Temperature Pulse Rate 80 80 Respiratory Rate 23 23 Blood Pressure 173/95 H Pulse Oximetry 98 98 Oxygen Delivery Method 03/15/22 19:05 03/15/22 19:11 03/15/22 19:11 Temperature Pulse Rate 80 Respiratory Rate 50 H Blood Pressure 165/88 H 182/95 H Pulse Oximetry 95 Oxygen Delivery Method 03/15/22 19:15 03/15/22 19:15 03/15/22 19:20 Temperature Pulse Rate 78 Respiratory Rate 43 H Blood Pressure 175/93 H 171/99 H Pulse Oximetry 98 Oxygen Delivery Method 03/15/22 19:20 03/15/22 19:25 03/15/22 19:25 Temperature Pulse Rate 74 77 Respiratory Rate 23 37 H Blood Pressure 217/106 H Pulse Oximetry 99 99 Oxygen Delivery Method 03/15/22 19:30 03/15/22 19:30 03/15/22 19:35 Temperature Pulse Rate 73 Respiratory Rate 43 H Blood Pressure 189/94 H 191/96 H Pulse Oximetry 98 Oxygen Delivery Method 03/15/22 19:35 03/15/22 19:40 03/15/22 19:40 Temperature Pulse Rate 80 72 Respiratory Rate 39 H 44 H Blood Pressure 189/94 H Pulse Oximetry 99 98 Oxygen Delivery Method 03/15/22 19:45 03/15/22 19:45 03/15/22 19:50 Temperature Pulse Rate 80 80 Respiratory Rate 28 H 41 H Blood Pressure 176/88 H Pulse Oximetry 97 97 Oxygen Delivery Method 03/15/22 19:50 03/15/22 19:55 03/15/22 19:55 Temperature Pulse Rate 79 Respiratory Rate 32 H Blood Pressure 178/87 H 183/104 H Pulse Oximetry 98 Oxygen Delivery Method 03/15/22 20:00 03/15/22 20:00 03/15/22 20:05 Temperature Pulse Rate 80 Respiratory Rate 31 H Blood Pressure 179/98 H 175/93 H Pulse Oximetry 98 Oxygen Delivery Method 03/15/22 20:05 03/15/22 20:10 03/15/22 20:10 Temperature Pulse Rate 80 76 Respiratory Rate 37 H 12 Blood Pressure 169/102 H Pulse Oximetry 98 98 Oxygen Delivery Method 03/15/22 20:15 03/15/22 20:15 03/15/22 20:20 Temperature Pulse Rate 73 Respiratory Rate 13 Blood Pressure 161/90 H 166/79 H Pulse Oximetry 99 Oxygen Delivery Method 03/15/22 20:20 Temperature Pulse Rate 72 Respiratory Rate 16 Blood Pressure Pulse Oximetry 97 Oxygen Delivery Method Oxygen Delivery Method Room Air Narrative Exam Narrative: General: Patient is a well-developed, well-nourished in no distress at this time. HEENT: Normocephalic, atraumatic, extraocular muscles intact, oral pharynx is clear and mucous membranes are moist. Neck is supple and symmetric, trachea is midline, no adenopathy, no thyroid enlargement, nontender, no masses palpated. Negative for JVD Chest: Left chest tube in place patent to suction, no nasal flaring, retractions, or tachypneic labored breathing, continues to be on 2l NC/97% 02 sat Lungs: Auscultation of all lung hearn are decreased in left base over right, with occansional exp wheezing noted in left upper lobe, Left chest tube in place to suction Cardio: regular rate and rhythm without murmur, rubs, or gallops, no carotid bruit, no cardiac pulsations present. Abdomen: Soft nontender, negative for organomegaly, or masses. Bowel sounds are present in all 4 quadrants without guarding or rebound, no CVA tenderness. Musculoskeletal: Muscle strength and tone are equal within normal limits, no deformity, crepitus, effusions, cyanosis, clubbing or edema present. Full range of motion intact radial and pedal pulses are normal. Skin: Warm dry and intact without rashes, ulcerations or petechiae. Neuro: Alert and orientated x3, strength is +5/5 in all extremities, sensation to touch intact, no gross deficits noted of cranial nerves. Psych: Patient has a well-kept appearance, appropriate affect, mental status attitude thought context and judgment are appropriate for age. Objective Labs 03/15/22 17:35 03/15/22 17:35 Labs: Laboratory Results - last 24 hr 03/15/22 03/15/22 03/15/22 17:25 17:35 17:35 WBC 25.5 H RBC 4.85 Hgb 14.0 Hct 42.7 MCV 88.1 MCH 28.8 MCHC 32.7 RDW 15.0 H Plt Count 209 Neut % (Auto) Not Reportable Lymph % (Auto) Not Reportable [place] % (Auto) Not Reportable Eos % (Auto) Not Reportable Baso % (Auto) Not Reportable Lymph # (Auto) Not Reportable [place] # (Auto) Not Reportable Baso # (Auto) Not Reportable Total Counted 100 Seg Neutrophils % 32.0 L Lymphocytes % (Manual) 1.0 L Atypical Lymphs % 62.0 H Monocytes % (Manual) 5.0 Neutrophils # (Manual) 8160 H Smudge Cells 3+ H RBC Morphology See below Anisocytosis 1+ H PT 12.0 INR 1.0 APTT 33 Sodium Potassium Chloride Carbon Dioxide BUN Creatinine Estimated GFR BUN/Creatinine Ratio Glucose Calcium Magnesium Total Bilirubin AST ALT Alkaline Phosphatase Total Creatine Kinase CK-MB (CK-2) CK-MB (CK-2) Rel Index Troponin I NT-Pro-B Natriuret Pep Total Protein Albumin Globulin Albumin/Globulin Ratio Lipase SARS-CoV-2 (PCR) Negative Influenza A (RT-PCR) Flu a negative Influenza B (RT-PCR) Flu b negative RSV (PCR) Negative 03/15/22 03/15/22 17:35 17:35 WBC RBC Hgb Hct MCV MCH MCHC RDW Plt Count Neut % (Auto) Lymph % (Auto) [place] % (Auto) Eos % (Auto) Baso % (Auto) Lymph # (Auto) [place] # (Auto) Baso # (Auto) Total Counted Seg Neutrophils % Lymphocytes % (Manual) Atypical Lymphs % Monocytes % (Manual) Neutrophils # (Manual) Smudge Cells RBC Morphology Anisocytosis PT INR APTT Sodium 137 Potassium 3.3 L Chloride 93 L Carbon Dioxide 33 H BUN 29 H Creatinine 1.35 H Estimated GFR 52 L BUN/Creatinine Ratio 21.5 Glucose 182 H Calcium 9.6 Magnesium 2.4 H Total Bilirubin 0.5 AST 33 ALT 19 Alkaline Phosphatase 89 Total Creatine Kinase 59 CK-MB (CK-2) TNP CK-MB (CK-2) Rel Index TNP Troponin I 0.019 NT-Pro-B Natriuret Pep 207 Total Protein 8.1 Albumin 4.6 Globulin 3.5 Albumin/Globulin Ratio 1.3 Lipase 168 SARS-CoV-2 (PCR) Influenza A (RT-PCR) Influenza B (RT-PCR) RSV (PCR) Assessment & Plan Assessment & Plan narrative: Jamal Lin is an 86-year-old female with a history of aortic stenosis, essential hypertension hyperlipidemia, CCL with chronically elevated WBC, who presented to the ED today complaining of approximately 48 hours of increasing shortness of breath with left sided chest pain radiating up into the left shoulder. On chest x-ray patient was found to have a large left tension pneumothorax, subsequently a left chest tube was placed in ED. tension pneumo will be managed by Dr. Messer, and discharged once resolved. 1. Tension pneumothorax, left, large, acute, present admission -In ED respiratory rate 23-44,maintains O2 saturations above 95% room air. O2 applied nasal cannula for comfort. Juni off oxygen as tolerated. -Admit RR 44, 98% on room air. -left chest tube in place to suction -Repeat CXR in AM -to be managed by Dr. Messer 2. Hypertensive urgency, the setting hypertension, essential secondary to aortic stenosis, acute on chronic, present on admission -ED blood pressures 210/106, 191/96 -Admit 189/94 -BNP 207, initial troponin 0.019 will trend, lipase WNL, magnesium slightly elevated 2.4 -EKG demonstrated sinus rhythm with occasional PVCs right bundle-branch block, it should be noted patient had no previous EKGs for comparison in the system. -continue amlodipine, lisinopril Maxzide -requested records from [facility] last noted stress and echo 08/2021- reported WNL to determine based on records 3. Hypokalemia, acute, recurrent, present on admission -in ED potassium 3.3 was given 40 mEq p.o. repeat @ 2126 potassium 3.0, given 40 mEq p.o., repeat 03/16/22 4:00 a.m. potassium 3.0-ordered 40 p.o. mEq 20 IV mEq -it should be noted that the patient takes Maxzide previous admit demonstrated hyperkalemia due to Maxzide hyperkalemia (8.6, 7.7, 5.9) -due to this occurrence 06/2021 I did not replace the potassium as aggressively as normal to avoid over-correction hyperkalemia. 4. Chronic lymphoma leukemia with leukocytosis, chronic, present on admission - WBC 25.5 (improved from previous labs) -WBC 35.4. Referencing labs from 07/03/21 5. Hyperlipidemia, chronic, present admission -continue rosuvastatin 6. Elevated creatinine,decreased GFR, and hyperglycemia without the diagnosis of diabetes or CKD, acute on chronic, present on admission -previous glucose levels 07/02-07/03 or 126 below -potassium 3.3, chloride 93, bicarb 33, BUN 29, creatinine 1.35, glucose 182, GFR 52: No KATY as per evaluation of labs from 07/03/2021: Creatinine 2.18, 2.4, 2.53, GFR 25, 26, 29, 2021 -NS@84 x8 Hrs-gentle rehydration 7. Overweight, mild, acute on chronic, present on admission -as evidence by BMI of 31.3 -dietary consult ordered regarding nutritional education and information for dietary, lifestyle, exercise, and weight changes. -the patient is at much higher risk for medical and surgical complications due to obesity as it relates to chronic illnesses:, and acute illness. The patient's obesity increases the difficulty and complexity of medical and/or surgical interventions, management and increases the chances of poor outcome such as morbidity and mortality as well as impaired wound healing. 8. History of prostate cancer with artificial urethral stent placement, chronic, present on admission -patient is able to independently empty his bladder per bulb compression in testicle. Code status:Full Surrogate decision maker: Neda Benitez- partner RAFI PCR:Negative DVT/VTE prophylaxis:Held coumadin & medication, SCD's only Disposition: Patient admitted for large tension left pneumothorax, will likely require hospitalization greater than 2 midnights for resolution I have utilized all available immediate resources to obtain, update, or review the patient's current medications. I confirmed that the patient's advanced care plan is present, Code status is documented and/or surrogate decision maker is listed in the patient's medical record. I have personally reviewed patient's chart notes from PCP, specialists, diagnostic imaging, and laboratory results. Time Spent With Patient Critical Care time: I spent a total of [] minutes of critical care time on this patient's care today; this time is exclusive of procedural time.
[2022-03-15 21:42] LABS: Hemoglobin A1C% w Est Avg Glu 5.8 % (4.0-6.0)
[2022-03-15 21:46] LABS: BUN Creatinine Ratio 20.1 (6-22); Blood Urea Nitrogen 27 mg/dL (9-20); Calcium 9.2 mg/dL (8.4-10.2); Carbon Dioxide 34 mmol/L (22-32); Chloride 95 mmol/L (98-107); Estimated Glomerular Filt Rate 52 mL/min (>60); Glucose 118 mg/dL (80-110); Lactate (Lactic Acid) 1.5 mmol/L (0.7-2.1); Sodium 136 mmol/L (137-145)
[2022-03-15 21:47] LABS: Magnesium 2.4 mg/dL (1.6-2.3)
[2022-03-15] MEDS: SENNOSIDES 8.6 MG TABLET 17.2 MG PO (21:47)
[2022-03-15] MEDS: DOCUSATE 100 MG CAPSULE PO (21:47)
[2022-03-15 22:03] LABS: Procalcitonin 0.12 ng/mL (<0.5)
--- NOTE | 2022-03-15 22:06 | PC.NURSE ---
Pt labs returned. Potassium came back 3.0. Called hospitalist office and personal cell, received no answer.
[2022-03-15 22:52] LABS: HEMOLYSIS < 15 (0-50); NT-proBNP (BNP-Adult 18+) 269 pg/mL (<450)
[2022-03-16] VITALS (8 sets, daily range): BP systolic 127–187; BP diastolic 65–89; PULSE 67–88; RESP 14–31; TEMP 36.3–36.6; O2SAT 93–97
[2022-03-16 01:05] LABS: Troponin I 0.025 ng/mL (0.01-0.034)
[2022-03-16] MEDS: SODIUM CHLORIDE 0.9% 1,000 ML 84 ML IV (02:28)
[2022-03-16] MEDS: HYDROMORPHONE 0.5 MG INJ IV ×3 (05:05→16:46)
[2022-03-16 05:36] LABS: BUN Creatinine Ratio 22.4 (6-22); Blood Urea Nitrogen 26 mg/dL (9-20); Calcium 9.1 mg/dL (8.4-10.2); Carbon Dioxide 35 mmol/L (22-32); Chloride 93 mmol/L (98-107); Estimated Glomerular Filt Rate > 60 mL/min (>60); Glucose 131 mg/dL (80-110); HEMOLYSIS < 15 (0-50); Sodium 135 mmol/L (137-145)
[2022-03-16 05:51] LABS: Hematocrit 40.9 % (41-53); Hemoglobin 13.4 g/dL (13.5-17.5); Mean Corpuscular HGB Conc 32.7 % (30-36); Mean Corpuscular Hemoglobin 28.6 PG (26-34); Mean Corpuscular Volume 87.5 fL (80-100); Platelet Count 180 X10^3/uL (150-400); Red Blood Cell Count 4.67 X10^6/uL (4.5-5.9); Red Cell Distribution Width 14.7 % (11.6-14.8); White Blood Cell Count 22.8 X10^3/uL (4.5-11.0)
[2022-03-16 05:57] LABS: Add Manual Diff / Slide Review YES
[2022-03-16 06:45] LABS: Appearance Urine UA CLEAR; Bilirubin Urine UA NEGATIVE (NEGATIVE); Color Urine UA YELLOW; Glucose Urine UA NEGATIVE (Negative); Ketones Urine UA NEGATIVE (NEGATIVE); Leukocyte Esterase Urine UA NEGATIVE (NEGATIVE); Nitrite Urine UA NEGATIVE (Negative); Occult Blood Urine UA NEGATIVE (Negative); Protein Urine UA 2+ (Negative); Specific Gravity Urine UA 1.025 (1.000-1.035)
[2022-03-16 07:03] LABS: Neutrophils Absolute Manual 8892 /uL (3000-5900); Total Cells Counted 100
[2022-03-16 07:04] LABS: RBC Morphology Normal Morphology
[2022-03-16 07:15] LABS: Bacteria Urine None Seen; Hyaline Casts Urine 1-5/LPF; RBC Urine None Seen (0-5/HPF); WBC Urine None Seen (0-5/HPF)
[2022-03-16 07:16] LABS: Culture Indicated Urine Cult Not Indicated
--- NOTE | 2022-03-16 08:00 | DI.RAD.S_ITS ---
PROCEDURE: XR CHEST 1V INDICATIONS: Evaluation chest tube/left pneumothorax TECHNIQUE: One view of the chest was acquired. COMPARISON: [facility], CR, XR CHEST 1V, 07/02/2021, 21:36. [facility], CR, XR CHEST 1V, 03/15/2022, 17:34. [facility], CR, XR CHEST 1V, 03/15/2022, 18:47. FINDINGS: Surgical changes and devices: Left-sided pleural drainage catheter is again seen. Lungs and pleura: Moderate left pneumothorax appears mildly improved. There is new volume loss in the left hemithorax with elevation of the left hemidiaphragm. No significant pleural effusion. Left mid lung zone opacities do not appear significantly changed. Mediastinum: There is decreased mediastinal shift. Patient is slightly rotated towards the left. Bones and chest wall: No suspicious bony lesions. Overlying soft tissues appear unremarkable. IMPRESSION: Stable left pleural drainage catheter. Mildly improved left pneumothorax with mild volume loss in the left hemithorax including elevation of the left hemidiaphragm. Mediastinal shift has decreased. Persistent left mid lung zone opacities. Approved by: Gopi Jensen M.D. on 03/16/2022 at 8:27
--- NOTE | 2022-03-16 08:03 | PM.PN.1 ---
Subjective Subjective Date Patient Seen: 03/16/22 Interval history: Patient's SOB has improved significantly with the chest tube. Repeat CXR with marginal improvement. Chest tube remains on suction. Exam Vital Signs (past 8 hours): - 03/16/22 00:39 03/16/22 04:00 Temperature 97.4 F L Pulse Rate 84 Respiratory Rate 14 Blood Pressure 151/74 H 169/86 H Pulse Oximetry 97 Oxygen Flow Rate 2 Oxygen Delivery Method Room Air Oxygen Flow Rate 2 Narrative Exam Narrative: General: Patient is a well-developed, well-nourished in no distress at this time. HEENT: Normocephalic, atraumatic, extraocular muscles intact, oral pharynx is clear and mucous membranes are moist. Neck is supple and symmetric, trachea is midline, no adenopathy, no thyroid enlargement, nontender, no masses palpated. Negative for JVD Chest: Left chest tube in place patent to suction, no nasal flaring, retractions, or tachypneic labored breathing, continues to be on 2l NC/97% 02 sat Lungs: Auscultation of all lung hearn are decreased in left base over right, with occansional exp wheezing noted in left upper lobe, Left chest tube in place to suction Cardio: regular rate and rhythm without murmur, rubs, or gallops, no carotid bruit, no cardiac pulsations present. Abdomen: Soft nontender, negative for organomegaly, or masses. Bowel sounds are present in all 4 quadrants without guarding or rebound, no CVA tenderness. Musculoskeletal: Muscle strength and tone are equal within normal limits, no deformity, crepitus, effusions, cyanosis, clubbing or edema present. Full range of motion intact radial and pedal pulses are normal. Skin: Warm dry and intact without rashes, ulcerations or petechiae. Neuro: Alert and orientated x3, strength is +5/5 in all extremities, sensation to touch intact, no gross deficits noted of cranial nerves. Psych: Patient has a well-kept appearance, appropriate affect, mental status attitude thought context and judgment are appropriate for age. Objective Labs 03/16/22 04:00 03/16/22 04:00 Labs: Laboratory Results - last 24 hr 03/15/22 03/15/22 03/15/22 17:25 17:35 17:35 WBC 25.5 H RBC 4.85 Hgb 14.0 Hct 42.7 MCV 88.1 MCH 28.8 MCHC 32.7 RDW 15.0 H Plt Count 209 Neut % (Auto) Not Reportable Lymph % (Auto) Not Reportable [place] % (Auto) Not Reportable Eos % (Auto) Not Reportable Baso % (Auto) Not Reportable Lymph # (Auto) Not Reportable [place] # (Auto) Not Reportable Baso # (Auto) Not Reportable Total Counted 100 Seg Neutrophils % 32.0 L Lymphocytes % (Manual) 1.0 L Atypical Lymphs % 62.0 H Monocytes % (Manual) 5.0 Neutrophils # (Manual) 8160 H Smudge Cells 3+ H RBC Morphology See below Anisocytosis 1+ H PT 12.0 INR 1.0 APTT 33 Sodium Potassium Chloride Carbon Dioxide BUN Creatinine Estimated GFR BUN/Creatinine Ratio Glucose Hemoglobin A1c Lactate Calcium Magnesium Total Bilirubin AST ALT Alkaline Phosphatase Total Creatine Kinase CK-MB (CK-2) CK-MB (CK-2) Rel Index Troponin I NT-Pro-B Natriuret Pep Total Protein Albumin Globulin Albumin/Globulin Ratio Lipase Procalcitonin Urine Color Urine Appearance Urine pH Ur Specific [place] Urine Protein Urine Glucose (UA) Urine Ketones Urine Occult Blood Urine Nitrate Urine Bilirubin Urine Urobilinogen Ur Leukocyte Esterase Urine RBC Urine WBC Urine Bacteria Hyaline Casts Ur Culture Indicated? SARS-CoV-2 (PCR) Negative Influenza A (RT-PCR) Flu a negative Influenza B (RT-PCR) Flu b negative RSV (PCR) Negative 03/15/22 03/15/22 03/15/22 17:35 17:35 21:27 WBC RBC Hgb Hct MCV MCH MCHC RDW Plt Count Neut % (Auto) Lymph % (Auto) [place] % (Auto) Eos % (Auto) Baso % (Auto) Lymph # (Auto) [place] # (Auto) Baso # (Auto) Total Counted Seg Neutrophils % Lymphocytes % (Manual) Atypical Lymphs % Monocytes % (Manual) Neutrophils # (Manual) Smudge Cells RBC Morphology Anisocytosis PT INR APTT Sodium 137 136 L Potassium 3.3 L 3.0 L Chloride 93 L 95 L Carbon Dioxide 33 H 34 H BUN 29 H 27 H Creatinine 1.35 H 1.34 H Estimated GFR 52 L 52 L BUN/Creatinine Ratio 21.5 20.1 Glucose 182 H 118 H Hemoglobin A1c Lactate Calcium 9.6 9.2 Magnesium 2.4 H Total Bilirubin 0.5 AST 33 ALT 19 Alkaline Phosphatase 89 Total Creatine Kinase 59 CK-MB (CK-2) TNP CK-MB (CK-2) Rel Index TNP Troponin I 0.019 NT-Pro-B Natriuret Pep 207 269 Total Protein 8.1 Albumin 4.6 Globulin 3.5 Albumin/Globulin Ratio 1.3 Lipase 168 Procalcitonin Urine Color Urine Appearance Urine pH Ur Specific [place] Urine Protein Urine Glucose (UA) Urine Ketones Urine Occult Blood Urine Nitrate Urine Bilirubin Urine Urobilinogen Ur Leukocyte Esterase Urine RBC Urine WBC Urine Bacteria Hyaline Casts Ur Culture Indicated? SARS-CoV-2 (PCR) Influenza A (RT-PCR) Influenza B (RT-PCR) RSV (PCR) 03/15/22 03/15/22 03/15/22 21:27 21:27 21:27 WBC RBC Hgb Hct MCV MCH MCHC RDW Plt Count Neut % (Auto) Lymph % (Auto) [place] % (Auto) Eos % (Auto) Baso % (Auto) Lymph # (Auto) [place] # (Auto) Baso # (Auto) Total Counted Seg Neutrophils % Lymphocytes % (Manual) Atypical Lymphs % Monocytes % (Manual) Neutrophils # (Manual) Smudge Cells RBC Morphology Anisocytosis PT INR APTT Sodium Potassium Chloride Carbon Dioxide BUN Creatinine Estimated GFR BUN/Creatinine Ratio Glucose Hemoglobin A1c 5.8 Lactate 1.5 Calcium Magnesium 2.4 H Total Bilirubin AST ALT Alkaline Phosphatase Total Creatine Kinase CK-MB (CK-2) CK-MB (CK-2) Rel Index Troponin I NT-Pro-B Natriuret Pep Total Protein Albumin Globulin Albumin/Globulin Ratio Lipase Procalcitonin 0.12 Urine Color Urine Appearance Urine pH Ur Specific [place] Urine Protein Urine Glucose (UA) Urine Ketones Urine Occult Blood Urine Nitrate Urine Bilirubin Urine Urobilinogen Ur Leukocyte Esterase Urine RBC Urine WBC Urine Bacteria Hyaline Casts Ur Culture Indicated? SARS-CoV-2 (PCR) Influenza A (RT-PCR) Influenza B (RT-PCR) RSV (PCR) 03/15/22 03/16/22 03/16/22 21:27 04:00 04:00 WBC 22.8 H RBC 4.67 Hgb 13.4 L Hct 40.9 L MCV 87.5 MCH 28.6 MCHC 32.7 RDW 14.7 Plt Count 180 Neut % (Auto) Not Reportable Lymph % (Auto) Not Reportable [place] % (Auto) Not Reportable Eos % (Auto) Not Reportable Baso % (Auto) Not Reportable Lymph # (Auto) Not Reportable [place] # (Auto) Not Reportable Baso # (Auto) Not Reportable Total Counted 100 Seg Neutrophils % 39.0 Lymphocytes % (Manual) 50.0 H D Atypical Lymphs % 7.0 H Monocytes % (Manual) 4.0 Neutrophils # (Manual) 8892 H Smudge Cells RBC Morphology Normal morphology Anisocytosis PT INR APTT Sodium 135 L Potassium 3.0 L Chloride 93 L Carbon Dioxide 35 H BUN 26 H Creatinine 1.16 Estimated GFR > 60 BUN/Creatinine Ratio 22.4 H Glucose 131 H Hemoglobin A1c Lactate Calcium 9.1 Magnesium Total Bilirubin AST ALT Alkaline Phosphatase Total Creatine Kinase CK-MB (CK-2) CK-MB (CK-2) Rel Index Troponin I 0.025 NT-Pro-B Natriuret Pep Total Protein Albumin Globulin Albumin/Globulin Ratio Lipase Procalcitonin Urine Color Urine Appearance Urine pH Ur Specific [place] Urine Protein Urine Glucose (UA) Urine Ketones Urine Occult Blood Urine Nitrate Urine Bilirubin Urine Urobilinogen Ur Leukocyte Esterase Urine RBC Urine WBC Urine Bacteria Hyaline Casts Ur Culture Indicated? SARS-CoV-2 (PCR) Influenza A (RT-PCR) Influenza B (RT-PCR) RSV (PCR) 03/16/22 06:19 WBC RBC Hgb Hct MCV MCH MCHC RDW Plt Count Neut % (Auto) Lymph % (Auto) [place] % (Auto) Eos % (Auto) Baso % (Auto) Lymph # (Auto) [place] # (Auto) Baso # (Auto) Total Counted Seg Neutrophils % Lymphocytes % (Manual) Atypical Lymphs % Monocytes % (Manual) Neutrophils # (Manual) Smudge Cells RBC Morphology Anisocytosis PT INR APTT Sodium Potassium Chloride Carbon Dioxide BUN Creatinine Estimated GFR BUN/Creatinine Ratio Glucose Hemoglobin A1c Lactate Calcium Magnesium Total Bilirubin AST ALT Alkaline Phosphatase Total Creatine Kinase CK-MB (CK-2) CK-MB (CK-2) Rel Index Troponin I NT-Pro-B Natriuret Pep Total Protein Albumin Globulin Albumin/Globulin Ratio Lipase Procalcitonin Urine Color Yellow Urine Appearance Clear Urine pH 7.0 Ur Specific [place] 1.025 Urine Protein 2+ H Urine Glucose (UA) Negative Urine Ketones Negative Urine Occult Blood Negative Urine Nitrate Negative Urine Bilirubin Negative Urine Urobilinogen 1.0 Ur Leukocyte Esterase Negative Urine RBC None seen Urine WBC None seen Urine Bacteria None seen Hyaline Casts 1-5/lpf Ur Culture Indicated? Cult not indicated SARS-CoV-2 (PCR) Influenza A (RT-PCR) Influenza B (RT-PCR) RSV (PCR) [facility] Medical History Aortic stenosis CLL (chronic lymphocytic leukemia) History of prostate cancer Hyperlipidemia Hypertension Surgical History History of cataract extraction History of prostatectomy Status post implantation of artificial urinary sphincter Family History Father Congestive heart failure Mother Hypertension Social History household members: spouse Smoking Status: Never smoker Assessment & Plan Assessment & Plan narrative: Jamal Lin is an 86-year-old female with a history of aortic stenosis, essential hypertension hyperlipidemia, CCL with chronically elevated WBC, who presented to the ED today complaining of approximately 48 hours of increasing shortness of breath with left sided chest pain radiating up into the left shoulder. On chest x-ray patient was found to have a large left tension pneumothorax, subsequently a left chest tube was placed in ED. 1. Left-sided tension pneumothorax s/p chest tube, acute, present admission -In ED respiratory rate 23-44,maintains O2 saturations above 95% room air. O2 applied nasal cannula for comfort. -Admit RR 44, 98% on room air. -left axillary chest tube in place to suction -being managed by Dr. Roland, gen surg -continue daily CXR's 2. Hypertensive urgency, the setting hypertension, essential secondary to aortic stenosis, acute on chronic, present on admission -ED blood pressures 210/106, 191/96 -improved to 145 systolic - BNP 207, initial troponin 0.019 will trend, lipase WNL, magnesium slightly elevated 2.4 -continue amlodipine, lisinopril Maxzide 3. Chronic lymphoma leukemia with leukocytosis, chronic, present on admission -WBC in 20's 4. Hyperlipidemia, chronic, present admission -continue rosuvastatin 5. Elevated creatinine,decreased GFR, and hyperglycemia without the diagnosis of diabetes or CKD, acute on chronic, present on admission -previous glucose levels 07/02-07/03 or 126 below 6. Overweight, mild, acute on chronic, present on admission -as evidence by BMI of 31.3 -dietary consult ordered regarding nutritional education and information for dietary, lifestyle, exercise, and weight changes. -the patient is at much higher risk for medical and surgical complications due to obesity as it relates to chronic illnesses:, and acute illness. The patient's obesity increases the difficulty and complexity of medical and/or surgical interventions, management and increases the chances of poor outcome such as morbidity and mortality as well as impaired wound healing. Code status: Full code DVT/VTE prophylaxis: Lovenox Disposition: Home in 2 days following resolution of PTX and chest tube resolution. Time Spent With Patient Critical Care time: I spent a total of [] minutes of critical care time on this patient's care today; this time is exclusive of procedural time.
[2022-03-16] MEDS: lisinopriL 20 MG TABLET 40 MG PO (08:43)
[2022-03-16] MEDS: POTASSIUM CHLORIDE IN WATER 10 MEQ/100 ML PIGGYBACK 100 MEQ IV ×4 (08:43→13:16)
[2022-03-16] MEDS: DOCUSATE 100 MG CAPSULE PO ×2 (08:43→20:46)
[2022-03-16] MEDS: AMLODIPINE 5 MG TABLET 10 MG PO (08:44)
[2022-03-16] MEDS: ATORVASTATIN 20 MG TABLET 80 MG PO (08:44)
[2022-03-16] MEDS: OXYCODONE/ACETAMINOPHEN 5/325 TABLET 1 TAB PO ×2 (08:44→16:47)
[2022-03-16] MEDS: TIMOLOL 0.5% OPHTH 1 DROPS EYE-BOTH (08:45)
[2022-03-16] MEDS: TRIAMTERENE/HCTZ 37.5/25 CAPSULE 1 CAP PO (08:47)
[2022-03-16] MEDS: POTASSIUM CHLORIDE 20 MEQ TAB 40 MEQ PO (08:49)
--- NOTE | 2022-03-16 10:46 | PM.CN ---
History of Present Illness Consult details Date Patient Seen: 03/16/22 Time Patient Seen: 10:47 Chief complaint: SHORT OF BREATH, PAIN IN LT SHOULDER BY NECK Narrative: 86-year-old man history of aortic stenosis and CLL who is admitted to the hospital for a tension left pneumothorax. He developed shortness of breath over the past 2 days and upon arrival to the emergency room chest x-ray demonstrated a large left tension pneumothorax. A chest tube was placed with interval improvement. No history of lung disease, prior chest tube, tobacco use, trauma or coughing. Currently he feels well without chest pain or shortness of breath. Meds Home Medications and Allergies Home Medications Medication Instructions Recorded Confirmed Type amlodipine 10 mg tablet 10 mg PO DAILY 07/03/21 03/15/22 History cholecalciferol (vitamin D3) 50 50 mcg PO BID 07/03/21 03/15/22 History mcg (2,000 unit) capsule (Vitamin D3) docusate sodium 100 mg capsule 100 mg PO BID 07/03/21 03/15/22 History (Colace) latanoprost 0.005 % eye drops 1 drp ophthalmic (eye) DAILY 07/03/21 03/15/22 History lisinopril 40 mg tablet 40 mg PO DAILY 07/03/21 03/15/22 History xdafqanc-wue-ppvuo acid 0.4 1 tab PO DAILY 07/03/21 03/15/22 History mg-lycopene 300 mcg-lutein 250 mcg tablet (Centrum Silver) nystatin 100,000 unit/gram topical 1 applic topical BID 07/03/21 03/15/22 History powder omega-3 fatty acids 1,400 mg PO DAILY 07/03/21 03/15/22 History rosuvastatin 40 mg tablet 40 mg PO DAILY 07/03/21 03/15/22 History tadalafil 10 mg tablet 10 mg PO DAILY PRN intercourse 07/03/21 03/15/22 History timolol 0.5 % eye drops 1 drp ophthalmic (eye) DAILY 07/03/21 03/15/22 History triamterene 75 1 tab PO QAM 07/03/21 03/15/22 History mg-hydrochlorothiazide 50 mg tablet Allergies Allergy/AdvReac Type Severity Reaction Status Date / Time myacin family Allergy Blister Uncoded 03/15/22 17:24 Exam Vital Signs (past 8 hours): - 03/16/22 04:00 03/16/22 08:00 03/16/22 08:00 Temperature 97.4 F L 97.6 F Pulse Rate 84 78 Respiratory Rate 14 19 Blood Pressure 169/86 H 160/75 H Pulse Oximetry 97 93 Oxygen Delivery Method Room Air Oxygen Flow Rate 2 0 Oxygen Delivery Method Room Air Oxygen Flow Rate 0 Narrative Exam Narrative: General elderly man alert oriented no acute distress Chest nonlabored respiration Left chest tube to -20 mm of mercury no air leak. Objective Labs 03/16/22 04:00 03/16/22 04:00 Labs: Laboratory Results - last 24 hr 03/15/22 03/15/22 03/15/22 17:25 17:35 17:35 WBC 25.5 H RBC 4.85 Hgb 14.0 Hct 42.7 MCV 88.1 MCH 28.8 MCHC 32.7 RDW 15.0 H Plt Count 209 Neut % (Auto) Not Reportable Lymph % (Auto) Not Reportable [place] % (Auto) Not Reportable Eos % (Auto) Not Reportable Baso % (Auto) Not Reportable Lymph # (Auto) Not Reportable [place] # (Auto) Not Reportable Baso # (Auto) Not Reportable Total Counted 100 Seg Neutrophils % 32.0 L Lymphocytes % (Manual) 1.0 L Atypical Lymphs % 62.0 H Monocytes % (Manual) 5.0 Neutrophils # (Manual) 8160 H Smudge Cells 3+ H RBC Morphology See below Anisocytosis 1+ H PT 12.0 INR 1.0 APTT 33 Sodium Potassium Chloride Carbon Dioxide BUN Creatinine Estimated GFR BUN/Creatinine Ratio Glucose Hemoglobin A1c Lactate Calcium Magnesium Total Bilirubin AST ALT Alkaline Phosphatase Total Creatine Kinase CK-MB (CK-2) CK-MB (CK-2) Rel Index Troponin I NT-Pro-B Natriuret Pep Total Protein Albumin Globulin Albumin/Globulin Ratio Lipase Procalcitonin Urine Color Urine Appearance Urine pH Ur Specific [place] Urine Protein Urine Glucose (UA) Urine Ketones Urine Occult Blood Urine Nitrate Urine Bilirubin Urine Urobilinogen Ur Leukocyte Esterase Urine RBC Urine WBC Urine Bacteria Hyaline Casts Ur Culture Indicated? SARS-CoV-2 (PCR) Negative Influenza A (RT-PCR) Flu a negative Influenza B (RT-PCR) Flu b negative RSV (PCR) Negative 01/24/23 01/24/23 01/24/23 17:35 17:35 21:27 WBC RBC Hgb Hct MCV MCH MCHC RDW Plt Count Neut % (Auto) Lymph % (Auto) [place] % (Auto) Eos % (Auto) Baso % (Auto) Lymph # (Auto) [place] # (Auto) Baso # (Auto) Total Counted Seg Neutrophils % Lymphocytes % (Manual) Atypical Lymphs % Monocytes % (Manual) Neutrophils # (Manual) Smudge Cells RBC Morphology Anisocytosis PT INR APTT Sodium 137 136 L Potassium 3.3 L 3.0 L Chloride 93 L 95 L Carbon Dioxide 33 H 34 H BUN 29 H 27 H Creatinine 1.35 H 1.34 H Estimated GFR 52 L 52 L BUN/Creatinine Ratio 21.5 20.1 Glucose 182 H 118 H Hemoglobin A1c Lactate Calcium 9.6 9.2 Magnesium 2.4 H Total Bilirubin 0.5 AST 33 ALT 19 Alkaline Phosphatase 89 Total Creatine Kinase 59 CK-MB (CK-2) TNP CK-MB (CK-2) Rel Index TNP Troponin I 0.019 NT-Pro-B Natriuret Pep 207 269 Total Protein 8.1 Albumin 4.6 Globulin 3.5 Albumin/Globulin Ratio 1.3 Lipase 168 Procalcitonin Urine Color Urine Appearance Urine pH Ur Specific [place] Urine Protein Urine Glucose (UA) Urine Ketones Urine Occult Blood Urine Nitrate Urine Bilirubin Urine Urobilinogen Ur Leukocyte Esterase Urine RBC Urine WBC Urine Bacteria Hyaline Casts Ur Culture Indicated? SARS-CoV-2 (PCR) Influenza A (RT-PCR) Influenza B (RT-PCR) RSV (PCR) 03/15/22 03/15/22 03/15/22 21:27 21:27 21:27 WBC RBC Hgb Hct MCV MCH MCHC RDW Plt Count Neut % (Auto) Lymph % (Auto) [place] % (Auto) Eos % (Auto) Baso % (Auto) Lymph # (Auto) [place] # (Auto) Baso # (Auto) Total Counted Seg Neutrophils % Lymphocytes % (Manual) Atypical Lymphs % Monocytes % (Manual) Neutrophils # (Manual) Smudge Cells RBC Morphology Anisocytosis PT INR APTT Sodium Potassium Chloride Carbon Dioxide BUN Creatinine Estimated GFR BUN/Creatinine Ratio Glucose Hemoglobin A1c 5.8 Lactate 1.5 Calcium Magnesium 2.4 H Total Bilirubin AST ALT Alkaline Phosphatase Total Creatine Kinase CK-MB (CK-2) CK-MB (CK-2) Rel Index Troponin I NT-Pro-B Natriuret Pep Total Protein Albumin Globulin Albumin/Globulin Ratio Lipase Procalcitonin 0.12 Urine Color Urine Appearance Urine pH Ur Specific [place] Urine Protein Urine Glucose (UA) Urine Ketones Urine Occult Blood Urine Nitrate Urine Bilirubin Urine Urobilinogen Ur Leukocyte Esterase Urine RBC Urine WBC Urine Bacteria Hyaline Casts Ur Culture Indicated? SARS-CoV-2 (PCR) Influenza A (RT-PCR) Influenza B (RT-PCR) RSV (PCR) 03/15/22 03/16/22 03/16/22 21:27 04:00 04:00 WBC 22.8 H RBC 4.67 Hgb 13.4 L Hct 40.9 L MCV 87.5 MCH 28.6 MCHC 32.7 RDW 14.7 Plt Count 180 Neut % (Auto) Not Reportable Lymph % (Auto) Not Reportable [place] % (Auto) Not Reportable Eos % (Auto) Not Reportable Baso % (Auto) Not Reportable Lymph # (Auto) Not Reportable [place] # (Auto) Not Reportable Baso # (Auto) Not Reportable Total Counted 100 Seg Neutrophils % 39.0 Lymphocytes % (Manual) 50.0 H D Atypical Lymphs % 7.0 H Monocytes % (Manual) 4.0 Neutrophils # (Manual) 8892 H Smudge Cells RBC Morphology Normal morphology Anisocytosis PT INR APTT Sodium 135 L Potassium 3.0 L Chloride 93 L Carbon Dioxide 35 H BUN 26 H Creatinine 1.16 Estimated GFR > 60 BUN/Creatinine Ratio 22.4 H Glucose 131 H Hemoglobin A1c Lactate Calcium 9.1 Magnesium Total Bilirubin AST ALT Alkaline Phosphatase Total Creatine Kinase CK-MB (CK-2) CK-MB (CK-2) Rel Index Troponin I 0.025 NT-Pro-B Natriuret Pep Total Protein Albumin Globulin Albumin/Globulin Ratio Lipase Procalcitonin Urine Color Urine Appearance Urine pH Ur Specific [place] Urine Protein Urine Glucose (UA) Urine Ketones Urine Occult Blood Urine Nitrate Urine Bilirubin Urine Urobilinogen Ur Leukocyte Esterase Urine RBC Urine WBC Urine Bacteria Hyaline Casts Ur Culture Indicated? SARS-CoV-2 (PCR) Influenza A (RT-PCR) Influenza B (RT-PCR) RSV (PCR) 03/16/22 06:19 WBC RBC Hgb Hct MCV MCH MCHC RDW Plt Count Neut % (Auto) Lymph % (Auto) [place] % (Auto) Eos % (Auto) Baso % (Auto) Lymph # (Auto) [place] # (Auto) Baso # (Auto) Total Counted Seg Neutrophils % Lymphocytes % (Manual) Atypical Lymphs % Monocytes % (Manual) Neutrophils # (Manual) Smudge Cells RBC Morphology Anisocytosis PT INR APTT Sodium Potassium Chloride Carbon Dioxide BUN Creatinine Estimated GFR BUN/Creatinine Ratio Glucose Hemoglobin A1c Lactate Calcium Magnesium Total Bilirubin AST ALT Alkaline Phosphatase Total Creatine Kinase CK-MB (CK-2) CK-MB (CK-2) Rel Index Troponin I NT-Pro-B Natriuret Pep Total Protein Albumin Globulin Albumin/Globulin Ratio Lipase Procalcitonin Urine Color Yellow Urine Appearance Clear Urine pH 7.0 Ur Specific [place] 1.025 Urine Protein 2+ H Urine Glucose (UA) Negative Urine Ketones Negative Urine Occult Blood Negative Urine Nitrate Negative Urine Bilirubin Negative Urine Urobilinogen 1.0 Ur Leukocyte Esterase Negative Urine RBC None seen Urine WBC None seen Urine Bacteria None seen Hyaline Casts 1-5/lpf Ur Culture Indicated? Cult not indicated SARS-CoV-2 (PCR) Influenza A (RT-PCR) Influenza B (RT-PCR) RSV (PCR) PFSH Medical History Aortic stenosis CLL (chronic lymphocytic leukemia) History of prostate cancer Hyperlipidemia Hypertension Surgical History History of cataract extraction History of prostatectomy Status post implantation of artificial urinary sphincter Family History Father Congestive heart failure Mother Hypertension Tobacco & Substance Use Smoking Status: Never smoker Assessment & Plan Assessment and plan (1) Pneumothorax, spontaneous, tension: Status: Acute Assessment & Plan narrative: 86-year-old man admitted for a tension left pneumothorax, chest tube in place. Chest x-rays reviewed there is interval improvement from yesterday to today, however the lung is not entirely reinflated. No underlying pulmonary, pneumothorax will likely resolve without further intervention. -continue chest tube to suction -daily chest x-ray Time Spent With Patient Critical Care time: I spent a total of [] minutes of critical care time on this patient's care today; this time is exclusive of procedural time.
[2022-03-16] MEDS: ENOXAPARIN 40 MG/0.4 ML SYRINGE SUBCUT (11:56)
--- NOTE | 2022-03-16 13:14 | CM.DANOTE ---
Initial Discharge Assessment Note: Case reviewed, met with patient. Introduced self and role. Payer: [facility] PCP: Harpreet Stanley 86 year old male admitted yesterday with large tension pneumothorax and treated with left chest tube insertion to suction. Patient resides in [place] with his spouse Neda. He is usually independent in ADLs and drives. He desires to return home on discharge. Plan: When medically clear, discharge home. [facility] Discharge Planning/Care Management CM Discharge Assessment Start: 03/16/22 12:20 Freq: Status: Active Protocol: Document 03/16/22 13:12 (Rec: 03/16/22 13:14 [id number]) Discharge Planning Assessment Assigned Employee Relations Administrator Rena Mendez RN/ISAACP Advance Directives? Yes Advance Directives on File No History Provided By Patient Prior Living Arrangements House Household Members spouse Type of transporation used prior to Drives own vehicle admit Independent with ADL's Yes Is patient alert and oriented? Yes Caregiver for Another No Barriers to Discharge No Discharge Plan Home Additional Comment Pending Review Status In Process Next Review Type Continued Stay Review
[2022-03-16] MEDS: POTASSIUM CHLORIDE 20 MEQ TAB PO (17:39)
[2022-03-16] MEDS: ONDANSETRON 4 MG ODT PO (18:01)
[2022-03-16] MEDS: SENNOSIDES 8.6 MG TABLET 17.2 MG PO (20:46)
[2022-03-16] MEDS: LATANOPROST 0.005% OPHTH 2.5 ML 1 DROPS EYE-BOTH (20:47)
--- NOTE | 2022-03-16 21:43 | PC.NURSE ---
Pt placed on home CPAP at 2100 with 4L HFNC.
[2022-03-17] VITALS (9 sets, daily range): BP systolic 90–150; BP diastolic 41–75; PULSE 78–104; RESP 14–28; TEMP 36.8–37.9; O2SAT 88–95
--- NOTE | 2022-03-17 06:31 | PC.NURSE ---
Pt had not voided during 12 hour shift and said he had no urge to go. Bladder scanned at 0630 for a total volume of 245 mL.
[2022-03-17 06:39] LABS: Hematocrit 42.1 % (41-53); Hemoglobin 13.6 g/dL (13.5-17.5); Mean Corpuscular HGB Conc 32.3 % (30-36); Mean Corpuscular Hemoglobin 28.7 PG (26-34); Mean Corpuscular Volume 88.7 fL (80-100); Platelet Count 167 X10^3/uL (150-400); Red Blood Cell Count 4.74 X10^6/uL (4.5-5.9); Red Cell Distribution Width 14.9 % (11.6-14.8); White Blood Cell Count 19.5 X10^3/uL (4.5-11.0)
[2022-03-17 06:40] LABS: BUN Creatinine Ratio 21.4 (6-22); Blood Urea Nitrogen 27 mg/dL (9-20); Calcium 8.9 mg/dL (8.4-10.2); Carbon Dioxide 29 mmol/L (22-32); Chloride 94 mmol/L (98-107); Estimated Glomerular Filt Rate 56 mL/min (>60); Glucose 97 mg/dL (80-110); HEMOLYSIS 22 (0-50); Sodium 131 mmol/L (137-145)
[2022-03-17 06:54] LABS: Add Manual Diff / Slide Review YES
[2022-03-17 07:19] LABS: Neutrophils Absolute Manual 8385 /uL (3000-5900); Smudge Cells 2+; Total Cells Counted 100
[2022-03-17 07:20] LABS: RBC Morphology Norm
--- NOTE | 2022-03-17 07:58 | PM.PN.1 ---
Subjective Subjective Date Patient Seen: 03/17/22 Interval history: BP soft this morning and 1L bolus given with improvement. CXR showed no significant improvement in left PTX, so gen surg replaced the chest tube and repeat CXR with much improved lung re-expansion. Exam Vital Signs (past 8 hours): - 03/17/22 00:00 03/17/22 02:17 03/17/22 03:51 Temperature 98.3 F Pulse Rate 104 H Respiratory Rate 20 Blood Pressure 150/72 H Pulse Oximetry 93 94 Oxygen Flow Rate 4 3 2 03/17/22 04:00 Temperature 100.2 F H Pulse Rate 85 Respiratory Rate 20 Blood Pressure 98/56 L Pulse Oximetry 94 Oxygen Flow Rate 0 Oxygen Delivery Method High Flow Nasal Cannula Oxygen Flow Rate 0 Narrative Exam Narrative: General: Patient is a well-developed, well-nourished in no distress at this time. HEENT: Normocephalic, atraumatic, extraocular muscles intact, oral pharynx is clear and mucous membranes are moist. Neck is supple and symmetric, trachea is midline, no adenopathy, no thyroid enlargement, nontender, no masses palpated. Negative for JVD Chest: Left chest tube in place patent to suction, no nasal flaring, retractions, or tachypneic labored breathing, continues to be on 2l NC/97% 02 sat Lungs: Auscultation of all lung hearn are present and equal. Left chest tube in place to suction. Cardio: regular rate and rhythm without murmur, rubs, or gallops, no carotid bruit, no cardiac pulsations present. Abdomen: Soft nontender, negative for organomegaly, or masses. Bowel sounds are present in all 4 quadrants without guarding or rebound, no CVA tenderness. Musculoskeletal: Muscle strength and tone are equal within normal limits, no deformity, crepitus, effusions, cyanosis, clubbing or edema present. Full range of motion intact radial and pedal pulses are normal. Skin: Warm dry and intact without rashes, ulcerations or petechiae. Neuro: Alert and orientated x3, strength is +5/5 in all extremities, sensation to touch intact, no gross deficits noted of cranial nerves. Psych: Patient has a well-kept appearance, appropriate affect, mental status attitude thought context and judgment are appropriate for age. Objective Labs 03/17/22 04:50 03/17/22 04:50 Labs: Laboratory Results - last 24 hr 03/17/22 03/17/22 04:50 04:50 WBC 19.5 H RBC 4.74 Hgb 13.6 Hct 42.1 MCV 88.7 MCH 28.7 MCHC 32.3 RDW 14.9 H Plt Count 167 Neut % (Auto) Not Reportable Lymph % (Auto) Not Reportable [place] % (Auto) Not Reportable Eos % (Auto) Not Reportable Baso % (Auto) Not Reportable Lymph # (Auto) Not Reportable [place] # (Auto) Not Reportable Baso # (Auto) Not Reportable Total Counted 100 Seg Neutrophils % 40.0 Band Neutrophils % 3.0 Lymphocytes % (Manual) 50.0 H Atypical Lymphs % 5.0 H Monocytes % (Manual) 2.0 Neutrophils # (Manual) 8385 H Smudge Cells 2+ H RBC Morphology Norm Sodium 131 L Potassium 4.0 Chloride 94 L Carbon Dioxide 29 BUN 27 H Creatinine 1.26 H Estimated GFR 56 L BUN/Creatinine Ratio 21.4 Glucose 97 Calcium 8.9 PFSH Medical History Aortic stenosis CLL (chronic lymphocytic leukemia) History of prostate cancer Hyperlipidemia Hypertension Surgical History History of cataract extraction History of prostatectomy Status post implantation of artificial urinary sphincter Family History Father Congestive heart failure Mother Hypertension Social History household members: spouse Smoking Status: Never smoker Assessment & Plan Assessment & Plan narrative: Jamal Lin is an 86-year-old female with a history of aortic stenosis, essential hypertension hyperlipidemia, CCL with chronically elevated WBC, who presented to the ED today complaining of approximately 48 hours of increasing shortness of breath with left sided chest pain radiating up into the left shoulder. On chest x-ray patient was found to have a large left tension pneumothorax, subsequently a left chest tube was placed in ED. 1. Left-sided tension pneumothorax s/p chest tube, acute, present admission -no recent trauma so likely spontaneous -In ED respiratory rate 23-44, maintains O2 saturations above 95% room air. O2 applied nasal cannula for comfort. -Admit RR 44, 98% on room air. -left axillary chest tube in place to suction -being managed by Dr. Roland, gen surg, replaced on 03/17 with improvement in lung re-expansion afterward -continue daily CXR's 2. Hypertensive urgency, the setting hypertension, essential secondary to aortic stenosis, acute on chronic, present on admission, improved -ED blood pressures 210/106, 191/96 -improved to 145 systolic - BNP 207, trops neg x3, lipase WNL, magnesium slightly elevated 2.4 -continue amlodipine, lisinopril Maxzide 3. Chronic lymphoma leukemia with leukocytosis, chronic, present on admission -WBC in 20's 4. Hyperlipidemia, chronic, present admission -continue rosuvastatin 5. Elevated creatinine,decreased GFR, and hyperglycemia without the diagnosis of diabetes or CKD, acute on chronic, present on admission -previous glucose levels 07/02-07/03 or 126 below 6. Overweight, mild, acute on chronic, present on admission -as evidence by BMI of 31.3 -dietary consult ordered regarding nutritional education and information for dietary, lifestyle, exercise, and weight changes. -the patient is at much higher risk for medical and surgical complications due to obesity as it relates to chronic illnesses:, and acute illness. The patient's obesity increases the difficulty and complexity of medical and/or surgical interventions, management and increases the chances of poor outcome such as morbidity and mortality as well as impaired wound healing. Code status: Full code DVT/VTE prophylaxis: Lovenox Disposition: Home in 2 days following resolution of PTX and chest tube removal. Time Spent With Patient Critical Care time: I spent a total of [] minutes of critical care time on this patient's care today; this time is exclusive of procedural time.
--- NOTE | 2022-03-17 08:00 | DI.RAD.S_ITS ---
PROCEDURE: XR CHEST 1V INDICATIONS: chest tube TECHNIQUE: One view of the chest was acquired. COMPARISON: [facility], CR, XR CHEST 1V, 03/16/2022, 7:33. FINDINGS: Surgical changes and devices: Left-sided chest tube is again seen. Lungs and pleura: There is interval increase in size of patient's known left-sided pneumothorax now measures up to 3.1 cm in craniocaudal dimension and 1.7 cm in transverse dimension. No right-sided pneumothorax. No significant pleural effusion. Pulmonary vascular congestion and bibasilar atelectasis/small infiltrates are seen. Mediastinum: Tortuous thoracic aorta is seen. Heart size is enlarged. Bones and chest wall: No suspicious bony lesions. Overlying soft tissues appear unremarkable. IMPRESSION: Interval increase in size of patient's known left-sided pneumothorax. No left-sided pneumothorax. Mild congestion and bibasilar atelectasis versus small infiltrates. Dictated by: Moo Patrick M.D. on 03/17/2022 at 12:34 Approved by: Moo Patrick M.D. on 03/17/2022 at 12:36
[2022-03-17] MEDS: SODIUM CHLORIDE 0.9% 1,000 ML 100 ML IV (08:44)
[2022-03-17] MEDS: TIMOLOL 0.5% OPHTH 1 DROPS EYE-BOTH (08:44)
[2022-03-17] MEDS: ENOXAPARIN 40 MG/0.4 ML SYRINGE SUBCUT (08:51)
[2022-03-17] MEDS: ATORVASTATIN 20 MG TABLET 80 MG PO (08:52)
[2022-03-17] MEDS: DOCUSATE 100 MG CAPSULE PO ×2 (08:53→20:05)
[2022-03-17] MEDS: HYDROMORPHONE 0.5 MG INJ IV ×3 (08:53→12:28)
--- NOTE | 2022-03-17 10:59 | PC.NURSE ---
Day shift: Patient in room 215 under this RN's care at 10:45. Chest tube in place, suction on wall at 20mmHg. Patient oriented to room, call light, and bed controls. Patient agreed to call for assistance in ambulation and transfers. Tele applied. No complaints, pain reported 0/10. Will continue to monitor. Hemostat at bedside. Chest tube chart by room.
[2022-03-17] MEDS: OXYCODONE/ACETAMINOPHEN 5/325 TABLET 1 TAB PO (11:18)
--- NOTE | 2022-03-17 12:44 | DI.RAD.S_ITS ---
PROCEDURE: XR CHEST 1V INDICATIONS: New chest tube placement TECHNIQUE: One view of the chest was acquired. COMPARISON: [facility], , XR CHEST 1V, 03/17/2022, 8:48. FINDINGS: Very small left apical pneumothorax status post left chest tube replacement. New large bore chest tube with sentinel hole in the left lower chest. Right lung and pleural space clear. Normal heart size. IMPRESSION: Interval left chest tube replacement, with new large bore chest tube in the left lung base. Significantly decreased left pneumothorax, now with only small left apical pneumothorax. Dictated by: Rodolfo Gordon M.D. on 03/17/2022 at 14:21 Approved by: Rodolfo Gordon M.D. on 03/17/2022 at 14:22
--- NOTE | 2022-03-17 13:08 | PM.OP.1 ---
Operative Date/Time/Diagnoses Date of procedure: 03/17/22 Time of procedure: 13:08 Pre-op diagnosis: left pneumothorax Post-op diagnosis: same Procedure & Clinicians Procedure: Thoracostomy Same procedure as scheduled: Yes Indications: 86-year-old man who is admitted to the hospital with a spontaneous left pneumothorax. He had a pigtail placement done 2 days ago however despite this he is worsening pneumothorax. Surgeon: Fabio Roland Click Yes if Unassisted: Yes Anesthesia Type: General Operative Notes Findings: Chest x-ray is pending Specimen(s): none sent Estimated Blood Loss (mL): 50 Procedure in detail: Left chest wall was prepped and draped in sterile fashion. Time-out was performed. 1% lidocaine was infiltrated into the subcutaneous tissue and then into the intercostal space of the left chest wall in the mid axillary line in the 5th intercostal space. Incision was made the subcutaneous tissue was divided the rib space was identified. The thorax was then entered with a spontaneous cabrera of air. A 20 Czech chest tube was then placed into the thoracic cavity and secured in position. Chest x-ray is pending Complications: none Post-operative Condition: stable Disposition: Acute Care
[2022-03-17] MEDS: SODIUM CHLORIDE 0.9% 1,000 ML 1000 ML IV (14:51)
--- NOTE | 2022-03-17 15:13 | PC.NURSE ---
Day shift: 1435 assessed patient's routine vital signs. Patient hypotensive at 92/44 with a MAP of 55. Dr. Kim notified, ordered a liter bolus of NS. Bolus started. Patient states he is comfortable. Will continue to monitor. Continuous pulse oximetry attached to patient's finger. No changes in chest tube status.
[2022-03-17] MEDS: SENNOSIDES 8.6 MG TABLET 17.2 MG PO (20:04)
[2022-03-17] MEDS: LATANOPROST 0.005% OPHTH 2.5 ML 1 DROPS EYE-BOTH (20:09)
[2022-03-18] VITALS (7 sets, daily range): BP systolic 103–139; BP diastolic 50–69; PULSE 67–91; RESP 17–18; TEMP 36.7–37.4; O2SAT 93–99
[2022-03-18] MEDS: HYDROMORPHONE 0.5 MG INJ IV (00:31)
[2022-03-18 05:40] LABS: Add Manual Diff / Slide Review NO; Basophils Absolute Auto 100 /uL (0-100); Basophils Percent Auto 0.3 % (0-2); Eosinophils Absolute Auto 100 /uL (0-450); Eosinophils Percent Auto 0.5 % (2-4); Hematocrit 38.9 % (41-53); Hemoglobin 12.9 g/dL (13.5-17.5); Lymphocytes Absolute Auto 11100 /uL (1100-4500); Lymphocytes Percent Auto 55.8 % (25-40); Mean Corpuscular HGB Conc 33.3 % (30-36); Mean Corpuscular Hemoglobin 29.3 PG (26-34); Mean Corpuscular Volume 87.9 fL (80-100); Monocytes Absolute Auto 600 /uL (0-900); Monocytes Percent Auto 2.9 % (3-14); Neutrophils Absolute Auto 8100 /uL (1500-7000); Neutrophils Percent Auto 40.5 % (50-75); Platelet Count 172 X10^3/uL (150-400); Red Blood Cell Count 4.42 X10^6/uL (4.5-5.9); Red Cell Distribution Width 14.9 % (11.6-14.8); White Blood Cell Count 19.9 X10^3/uL (4.5-11.0)
[2022-03-18 05:57] LABS: BUN Creatinine Ratio 22.3 (6-22); Blood Urea Nitrogen 31 mg/dL (9-20); Calcium 8.8 mg/dL (8.4-10.2); Carbon Dioxide 28 mmol/L (22-32); Chloride 98 mmol/L (98-107); Estimated Glomerular Filt Rate 50 mL/min (>60); Glucose 91 mg/dL (80-110); HEMOLYSIS 33 (0-50); Potassium 3.6 mmol/L (3.4-5.1); Sodium 134 mmol/L (137-145)
--- NOTE | 2022-03-18 07:14 | DI.RAD.S_ITS ---
PROCEDURE: XR CHEST 1V INDICATIONS: Reassess pneumothorax TECHNIQUE: One view of the chest was acquired. COMPARISON: [facility], CR, XR CHEST 1V, 03/17/2022, 12:53. FINDINGS: Surgical changes and devices: There is a left thoracostomy tube. It is unclear whether the tube extends into the pleural space as before, or now terminates at the lateral aspect of the left ribs. Lungs and pleura: Atelectasis is present within the left mid lung. The small apical pneumothorax visualized on the prior study is not seen on the current exam. Right lung is clear. Mediastinum: Mediastinal contours appear normal. Heart size is normal. Bones and chest wall: No suspicious bony lesions. Overlying soft tissues appear unremarkable. IMPRESSION: Questionable dislodgement of the left thoracostomy tube. If further characterization is warranted, repeat PA view is recommended to evaluate for thoracostomy tube placement. Dictated by: Kari Arcos M.D. on 03/18/2022 at 8:25 Approved by: Kari Arcos M.D. on 03/18/2022 at 8:27
[2022-03-18] MEDS: ENOXAPARIN 40 MG/0.4 ML SYRINGE SUBCUT (08:34)
[2022-03-18] MEDS: ACETAMINOPHEN 325 MG TABLET 650 MG PO (08:34)
[2022-03-18] MEDS: DOCUSATE 100 MG CAPSULE PO (08:34)
[2022-03-18] MEDS: ATORVASTATIN 20 MG TABLET 80 MG PO (08:35)
[2022-03-18] MEDS: TIMOLOL 0.5% OPHTH 1 DROPS EYE-BOTH (08:39)
--- NOTE | 2022-03-18 11:15 | PM.PN.1 ---
Subjective Subjective Interval history: 86-year-old gentleman with aortic stenosis, prostate cancer status post prostatectomy and artificial urethral sphincter placement, presently in remission, hypertension, hyperlipidemia, and CLL who was admitted with a spontaneous left-sided tension pneumothorax. General surgery consulted and placed a chest tube. Unfortunately, the pneumothorax was not improving and and chest tube was replaced yesterday with good improvement overall. He saw the patient this afternoon and has transitioned him to water-seal. He is planning get a follow-up chest x-ray to reassess. Patient reports he is feeling quite well. No shortness of breath. He is urinating well. Appetite is fair, but not at baseline. He is anxious to get up and mobilize. Patient denies any history of lung disease, specifically denies any history of smoking, asthma or any recent trauma. Exam Vital Signs (past 8 hours): - 03/18/22 03:30 03/18/22 03:35 03/18/22 04:00 Temperature 98.0 F Pulse Rate 88 Respiratory Rate 18 Blood Pressure 138/69 Pulse Oximetry 99 97 97 Oxygen Delivery Method CPAP CPAP Oxygen Flow Rate 1.5 1 1 03/18/22 07:00 03/18/22 08:00 Temperature 99.1 F Pulse Rate 91 H Respiratory Rate 17 Blood Pressure 139/66 Pulse Oximetry 94 Oxygen Delivery Method Nasal Cannula Oxygen Flow Rate 1 Oxygen Delivery Method Nasal Cannula Oxygen Flow Rate 1 Narrative Exam Narrative: GEN: Alert and oriented x 3, NAD HEENT:NC, Face symmetric CHEST: Respiratory excursions symmetric, crackles noted in the right base, otherwise CTAB CV: RRR, no M/R/G ABD: Soft, NT/ND, BT present in all 4 quadrants, no organomegaly or masses EXTR: warm, well perfused, no C/C/E SKIN: warm and dry, no rash NEURO: Alert and oriented x 3, nonfocal Objective Labs 03/18/22 05:00 03/18/22 05:00 Labs: Laboratory Results - last 24 hr 03/18/22 03/18/22 05:00 05:00 WBC 19.9 H RBC 4.42 L Hgb 12.9 L Hct 38.9 L MCV 87.9 MCH 29.3 MCHC 33.3 RDW 14.9 H Plt Count 172 Neut % (Auto) 40.5 L Lymph % (Auto) 55.8 H [place] % (Auto) 2.9 L Eos % (Auto) 0.5 L Baso % (Auto) 0.3 Neut # (Auto) 8100 H Lymph # (Auto) 26624 H [place] # (Auto) 600 Eos # (Auto) 100 Baso # (Auto) 100 Sodium 134 L Potassium 3.6 Chloride 98 Carbon Dioxide 28 BUN 31 H Creatinine 1.39 H Estimated GFR 50 L BUN/Creatinine Ratio 22.3 H Glucose 91 Calcium 8.8 PFSH Medical History Aortic stenosis CLL (chronic lymphocytic leukemia) History of prostate cancer Hyperlipidemia Hypertension Surgical History History of cataract extraction History of prostatectomy Status post implantation of artificial urinary sphincter Family History Father Congestive heart failure Mother Hypertension Social History household members: spouse Smoking Status: Never smoker Assessment & Plan Assessment & Plan narrative: 1. Left-sided tension pneumothorax, spontaneous, status post chest tube placement Chest x-ray done this morning reveals resolution of small residual apical pneumothorax. Patient transitioned to water-seal today. Follow up chest x-ray pending. Hopefully, tubal be removed tomorrow and he will be able to discharge 2. Hypertensive urgency BP presently normotensive. Lisinopril has been held due to some hypotension yesterday. Will continue to monitor. 3. CLL White blood cell count stable at 19.9 with lymphocytic predominance. Stable. 4. Hyperlipidemia Continues atorvastatin. 5. Elevated creatinine Creatinine is 1.39, up from 1.16 on admission. Oral intake has been suboptimal. Patient is not receiving any diuretics. No known history of CKD. Will follow. 6. Overweight BMI 32.1. Would benefit from weight reduction. 7. Glaucoma Continue timolol and latanoprost Code status Full Prophylaxis Lovenox Disposition Home at discharge after chest tube removal Time Spent With Patient Critical Care time: I spent a total of [] minutes of critical care time on this patient's care today; this time is exclusive of procedural time.
--- NOTE | 2022-03-18 12:30 | DI.RAD.S_ITS ---
PROCEDURE: XR CHEST 1V INDICATIONS: ct off suction to water seal TECHNIQUE: One view of the chest was acquired. COMPARISON: [facility], CR, XR CHEST 1V, 03/18/2022, 7:16. FINDINGS: Surgical changes and devices: The thoracostomy tube has been retracted and now resides within the subcutaneous tissue adjacent to the left hemithorax. Lungs and pleura: Atelectasis is present at the bilateral lung bases. Atelectasis is present in the left mid lung as before. No pneumothorax visualized. Mediastinum: Mediastinal contours appear normal. Heart size is normal. Bones and chest wall: No suspicious bony lesions. Overlying soft tissues appear unremarkable. IMPRESSION: Thoracostomy tube retracted into the subcutaneous tissues of the left chest wall. No recurrent pneumothorax appreciated. Dictated by: Kari Arcos M.D. on 03/18/2022 at 13:13 Approved by: Kari Arcos M.D. on 03/18/2022 at 13:14
--- NOTE | 2022-03-18 14:38 | PM.CALLCOV.1 ---
Call Coverage Note Note Date of Patient Contact: 03/18/22 Time of Patient Contact: 14:38 Narrative of Care Provided: 86M with spontaneous left PNX. CXR this AM no residual pnx questionable if tube remains within the thoracic cavity. Tube moved to waterseal and follow up CXR demonstrates tube is clearly outside the chest and no pnx. Tube removed. Patient breathing comfortably. Wound reapproximated with steristrips and covered with tegaderm. May discharge home with return precaution for worsening SOB.
--- NOTE | 2022-03-18 14:39 | CM.DPC ---
Addendum entered by Aleena Andrew R.N. 03/18/22 14:42: Aleena Andrew RN Case Manager Original Note: DCP: This CM met with pt in his room. Pt reported that he was feeling better as he had been up and ambulated down the hallway with ANNITA Lopes. Per Marianne pt is steady on his feet. Pt reports that he has no stairs at home and that his is his support. Plan: D/C home with when medically stable.
--- NOTE | 2022-03-18 15:44 | P.DS_ITS ---
History of Present Illness History of Present Illness Chief complaint: SHORT OF BREATH, PAIN IN LT SHOULDER BY NECK Narrative: Per history and physical: Jamal Lin is an 86-year-old female with a history of aortic stenosis, history of prostate cancer with prostatectomy and artificial urethral sphincter placement, essential hypertension hyperlipidemia, CCL with chronically elevated WBC, who presented to the ED today complaining of approximately 48 hours of increasing shortness of breath with left sided lower left chest pain radiating up into the left shoulder.? On chest x-ray patient was found to have a large left tension pneumothorax, subsequently a left chest tube was placed in ED. ?On admit patient reports that shortness of breath is greatly improved as is chest discomfort but is gradually coming back worse in the upper left shoulder area. He denies headache, changes in vision, difficulty swallowing, speech impairment, weakness, numbness, tingling, difficulty with ambulation, recent f alls, head injury, LOC, fever, body aches, chills, cough, recent exposure to illness, abdominal pain, nausea, vomiting, urinary incontinence/retention, dysuria, frequency, urgency, hematuria, bowel changes, constipation, incontinence, melena, rashes, recent changes to medication, illness, injury, or trauma. Patient demonstrated hypertensive urgency with tachypnea in the ED blood pressures 210/106, 191/96, respiratory rate 23-44.? At the time of admit continues to be mildly hypertensive, and significantly tachypneic, but maintains O2 saturations above 95% room air.? Admit vital signs temp 98?, 189/94, 72, 44, 98% on room air.? WBC 25.5 (improved from previous labs), mild hypokalemia potassium 3.3, chloride 93, bicarb 33, BUN 29, creatinine 1.35, glucose 182, GFR 52:? No KATY as per evaluation of labs from 07/03/2021: Creatinine 2.18, 2.4, 2.53, GFR 25, 26, 29, WBC 35.4. Referencing labs from 07/03/2021 BNP 207, initial troponin 0.019, lipase WNL, magnesium slightly elevated 2.4, COVID, influenza a/B/RSV negative.? Post left chest tube placement noted minimal improvement thorax midline shift.? EKG demonstrated sinus rhythm with occasional PVCs right bundle-branch block, it should be noted patient had no previous EKGs for comparison in the system.? Patient admitted for large left tension pneumothorax,, hypertensive urgency and mild hypokalemia.? Dr. Desiree Messer General surgery to consult. Discharge Providers Provider Date of admission: 03/15/22 19:05 Discharge Date: 03/18/22 Primary care physician: Harpreet Stanley MD Consults: 03/15/22 20:59 Consult to Dietitian, Adult Routine Comment: Reason For Exam: BMI 32.3 Consult to Physician Routine Comment: Consulting Provider: Desiree Messer Reason for consultation: Large left tension pneumothorax Has provider been notified: Yes Discharge provider: Sharla Rice MD Summary Hospital Course Discharge Diagnosis: 1. Left-sided tension pneumothorax, spontaneous, status post chest tube placement; now resolved 2. Hypertensive urgency, resolved 3. CLL, chronic, stable 4. Hyperlipidemia, chronic, stable 5. Elevated creatinine, recommend outpatient follow-up 6. Overweight, BMI 32.1 7. Glaucoma Hospital Course: Patient has no history of lung cancer but does have history of aortic stenosis as well as prostate cancer status post prostatectomy and artificial urethral sphincter placement, hypertension, hyperlipidemia, and CLL who presented to the emergency department with 48 hours of worsening shortness of breath and left- sided chest pain radiating up to the left shoulder. Was found to have a large left tension pneumothorax. A chest tube was placed in the emergency department. Was additionally found to have evidence of hypertensive urgency. This was treated and improved. Follow-up chest imaging revealed ongoing pneumothorax. General surgery consultation was obtained and the chest tube was replaced with near resolution of the pneumothorax. Patient was placed to water seal and did well. Chest x-ray done on the morning of March 18 raise concern for pos sible dislodged chest tube. Follow-up x-ray was performed which showed the chest tube to have been backed up into the subcutaneous tissues. There was no recurrence of the pneumothorax. Empty. Patient was stable on room air. Patient was cleared by General surgery for discharge home. Patient is being discharged home in stable condition. Status at Discharge Cognitive/behavioral status at discharge: at baseline, oriented Functional status at discharge: independent ambulation Overall status at discharge: patient is back to baseline Time Spent with Patient Time spent: Greater than 30 minutes Exam Vital Signs (past 8 hours): - 03/18/22 08:00 03/18/22 11:00 03/18/22 15:00 Temperature 99.2 F 98.5 F Pulse Rate 67 87 Respiratory Rate 18 18 Blood Pressure 103/50 L 110/57 L Pulse Oximetry 94 94 Oxygen Delivery Method Nasal Cannula Oxygen Flow Rate 0 0 Oxygen Delivery Method Nasal Cannula Oxygen Flow Rate 0 Narrative Exam Narrative: See exam from today's progress note Objective Labs 03/18/22 05:00 03/18/22 05:00 Labs: Laboratory Results - last 24 hr 03/18/22 03/18/22 05:00 05:00 WBC 19.9 H RBC 4.42 L Hgb 12.9 L Hct 38.9 L MCV 87.9 MCH 29.3 MCHC 33.3 RDW 14.9 H Plt Count 172 Neut % (Auto) 40.5 L Lymph % (Auto) 55.8 H [place] % (Auto) 2.9 L Eos % (Auto) 0.5 L Baso % (Auto) 0.3 Neut # (Auto) 8100 H Lymph # (Auto) 19228 H [place] # (Auto) 600 Eos # (Auto) 100 Baso # (Auto) 100 Sodium 134 L Potassium 3.6 Chloride 98 Carbon Dioxide 28 BUN 31 H Creatinine 1.39 H Estimated GFR 50 L BUN/Creatinine Ratio 22.3 H Glucose 91 Calcium 8.8 PFSH Medical History Aortic stenosis CLL (chronic lymphocytic leukemia) History of prostate cancer Hyperlipidemia Hypertension Surgical History History of cataract extraction History of prostatectomy Status post implantation of artificial urinary sphincter Family History Father Congestive heart failure Mother Hypertension Social History household members: spouse Smoking Status: Never smoker Discharge Plan Discharge Plan Patient Disposition: Home Provider Discharge Comment: Get an appointment to see your PCP next week. Return to the ED for shortness of breath, fevers/chills, chest pain, or inability to keep down food or fluids. Do not lift more than 20 lb at a time over the next week. Avoid straining for bowel movements or to urinate. Try to avoid harsh coughing or sneezing. You did have mildly low blood pressure yesterday that required IV fluids. We have held your blood pressure medicines in the hospital since yesterday. It is okay to restart your lisinopril and amlodipine. I would monitor your blood pressures closely over the next few days. You can restart the triamterene/HCTZ as long as all systolic blood pressures (top number) are above 110. Discharge orders & Medications Prescriptions: Continued latanoprost 0.005 % Drops 1 drp OPHTHALMIC (EYE) DAILY amlodipine 10 mg Tablet 10 mg PO DAILY timolol 0.5 % Drops 1 drp OPHTHALMIC (EYE) DAILY docusate sodium [Colace] 100 mg Capsule 100 mg PO BID triamterene-hydrochlorothiazid 75-50 mg Tablet 1 tab PO QAM nystatin 100,000 unit/gram Powder 1 applic TOPICAL BID lisinopril 40 mg tablet 40 mg PO DAILY Label Comments: Take 1 tablet by mouth once a day omega-3 fatty acids Capsule 1,400 mg PO DAILY rosuvastatin 40 mg Tablet 40 mg PO DAILY tadalafil 10 mg Tablet 10 mg PO DAILY PRN (Reason: intercourse) Rx Instructions: administer approximately 30min before sexual activity; do not use more than 1 dose per 24hrs Centrum Silver 0.4-300-250 mg-mcg-mcg Tablet 1 tab PO DAILY cholecalciferol (vitamin D3) [Vitamin D3] 50 mcg (2,000 unit) Capsule 50 mcg PO BID Medication counseling provided by Pharmacist: No Follow up/Referrals: Harpreet Stanley MD [Primary Care Provider] - Discharge Health Status Multidrug resistant organism: No MDRO Diet/Activity/Treatments Diet: Diet as Tolerated Activity: As tolerated, lifting restrictions as noted. Oxygen: N/a Visit Report/Discharge Packet Instructions: How to Care for a Surgical Wound, DI for Pneumothorax, How to Prevent Falls, DI for Chest Tube Insertion Stand Alone Forms: Patient Portal/API Discharge Data Primary Care Provider: Harpreet Stanley
--- NOTE | 2022-03-18 15:54 | CM.DANOTE ---
DCP: Assessment, Pt is 71 yo male admitted to ED via ambulance with severe SOB, noted to have Hyponatremia. Pt has a Hx of ETOH abuse, tobacco abuse, Emphysema lung, Htn. Met with pt in his room. Introduced self and role. He reports that he lives in [facility] at [facility] (Independent living). His Sister and Neeleuterio are his main contacts. He confirms that he does not drive and that he uses a cane when he feels like walking but also has a walker at home that he does not like to use. PCP: Marianne Mcginnis Insurance: [facility] Advantage Plan: Currently reviewing and anticipating patient needs. Probable home with HH or SNF. Pt is currently on Oxygen. Aleena Andrew RN Case Manager. Discharge Planning/Care Management CM Discharge Assessment Start: 03/16/22 12:20 Freq: Status: Active Protocol: Document 03/16/22 13:12 (Rec: 03/16/22 13:14 [id number]) Discharge Planning Assessment Assigned Cattle Broker Rena Mendez RN/DCP Advance Directives? Yes Advance Directives on File No History Provided By Patient Prior Living Arrangements House Household Members spouse Type of transporation used prior to Drives own vehicle admit Independent with ADL's Yes Is patient alert and oriented? Yes Caregiver for Another No Barriers to Discharge No Discharge Plan Home Additional Comment Pending Review Status In Process Next Review Type Continued Stay Review
--- NOTE | 2022-03-18 16:23 | PC.NURSE ---
Day shift: Discontinued patient's IV. Patient dressed with assistance from spouse. Discharge education provided with spouse at bedside. All questions answered, patient scheduled follow up with PCP. Dressing over previous chest tube insertion site CDI. VSS. All belongings given to patient and spouse. Patient wheeled via wheelchair to private vehicle with spouse by Ab ARIZA at 1623.
== END 2022-03-18 16:23 | disposition home or self-care (01) | DRG 200 ==
LOC: ED 18:08 → AC 19:05 → ICU 20:36 → AC 03-17 10:48
PROVIDERS: Emergency Medicine; Admitting Provider Nurse Practitioner Family; Emergency Provider Emergency Medicine; PCP Internal Medicine; Referring Provider Emergency Medicine; Visit Provider Nurse Practitioner Family
DX: J93.0 Spontaneous tension pneumothorax (principal); C91.10 Chronic lymphocytic leukemia of B-cell type not having achieved remission; I16.0 Hypertensive urgency; E87.6 Hypokalemia; I10 Essential (primary) hypertension; I35.0 Nonrheumatic aortic (valve) stenosis; E78.5 Hyperlipidemia, unspecified; E66.3 Overweight; H40.9 Unspecified glaucoma; R94.4 Abnormal results of kidney function studies; Z85.46 Personal history of malignant neoplasm of prostate; Z96.0 Presence of urogenital implants; Z20.822 Contact with and (suspected) exposure to COVID-19; Z68.32 Body mass index [BMI] 32.0-32.9, adult
CPT/HCPCS: 0241U; 32551; 36415; 71045; 80048; 80053; 81001; 82550; 83036; 83605; 83690; 83735; 83880; 84145; 84484; 85007; 85025; 85610; 85730; 93005; 96374; 96375; 99152; 99153; 99221; 99284; 99291; J1170; J1650; J2250; J3010

== ENCOUNTER 2023-04-02 14:02 | Inpatient (IN) | payer MEDICARE, OTHER, SELFPAY ==
[2022-03-15 19:47] VITALS: BMI 32.3
[2023-04-02] VITALS (17 sets, daily range): BP systolic 100–185; BP diastolic 53–99; PULSE 71–106; RESP 16–46; TEMP 36.5–37.4; O2SAT 95–100; BMI 27.1; BMI 28.0
--- NOTE | 2023-04-02 14:17 | DI.RAD.S_ITS ---
PROCEDURE: XR CHEST 1V INDICATIONS: Shortness of breath TECHNIQUE: One view of the chest was acquired. COMPARISON: [facility], CR, XR CHEST 1V, 03/15/2022, 18:47. [facility], CR, XR CHEST 1V, 03/17/2022, 12:53. [facility], CR, XR CHEST 1V, 03/18/2022, 7:16. [facility], CR, XR CHEST 1V, 03/18/2022, 12:29. FINDINGS: Surgical changes and devices: None. Lungs and pleura: Left-sided pneumothorax is 3.8 cm to the thoracic cage right lung and pleural space clear Mediastinum: Mediastinal contours appear normal. Heart size is normal. Bones and chest wall: No suspicious bony lesions. Overlying soft tissues appear unremarkable. IMPRESSION: Recurrent moderate left-sided pneumothorax Note: Critical results were discussed with Dr. Marc at 02:16 PM [place] time on 04/02/23 Approved by: Demetrius Sierra M.D. on 04/02/2023 at 14:16
[2023-04-02 14:32] LABS: Hematocrit 43.9 % (41-53); Hemoglobin 14.5 g/dL (13.5-17.5); Mean Corpuscular Hemoglobin 30.6 PG (26-34); Mean Corpuscular Volume 92.5 fL (80-100); Platelet Count 260 X10^3/uL (150-400); Red Blood Cell Count 4.75 X10^6/uL (4.5-5.9); Red Cell Distribution Width 14.9 % (11.6-14.8); White Blood Cell Count 23.2 X10^3/uL (4.5-11.0)
[2023-04-02 14:34] LABS: Add Manual Diff / Slide Review YES
[2023-04-02 14:40] LABS: INR 1.1 (0.9-1.3); Prothrombin Time 12.8 SECONDS (9.4-12.5)
[2023-04-02 14:45] LABS: Alanine Aminotransferase 28 IU/L (<50); Albumin 4.4 g/dL (3.5-5.0); Albumin Globulin Ratio 1.2 (1.0-2.8); Alkaline Phosphatase 67 U/L (38-126); Aspartate Aminotransferase 30 IU/L (17-59); BUN Creatinine Ratio 23.3 (6-22); Bilirubin Total 0.8 mg/dL (0.2-1.3); Blood Urea Nitrogen 35 mg/dL (9-20); Calcium 10.3 mg/dL (8.4-10.2); Carbon Dioxide 27 mmol/L (22-32); Chloride 96 mmol/L (98-107); Estimated Glomerular Filt Rate 45 mL/min (>60); Globulin 3.6 g/dL (1.7-4.1); Glucose 120 mg/dL (80-110); HEMOLYSIS < 15 (0-50); Lactate (Lactic Acid) 2.3 mmol/L (0.7-2.1); Sodium 136 mmol/L (137-145)
[2023-04-02 14:56] LABS: NT-proBNP (BNP-Adult 18+) 318 pg/mL (<450); Neutrophils Absolute Manual 6032 /uL (3000-5900); Total Cells Counted 100; Troponin I < 0.012 ng/mL (0.01-0.034)
[2023-04-02 14:58] LABS: RBC Morphology Normal Morphology
[2023-04-02 14:59] LABS: Smudge Cells 2+
--- NOTE | 2023-04-02 15:10 | ED.CHESTPAIN ---
HPI - Chest Pain General Chief Complaint: Shortness of Breath/Dyspnea Stated Complaint: pain in lung hx of collapsed lung Time Seen by Provider: 04/02/23 14:53 Source: patient and family Mode of arrival: Ambulatory History of Present Illness HPI narrative: This is an 87-year-old male with history of aortic stenosis, hypertension, dyslipidemia, CLL chronically elevated white count with pneumothorax in February of 2022 who presents with complaint of left-sided chest pain similar to when he had his prior pneumothorax. Patient does use Cpap at home with full face mask. States they think that he has not had any recent trauma or injuries. They thought that maybe he has been walking his dog and been pulled when he had his last episode a year ago but he did not have any falls at that time. Patient states that he had started having pain in his shoulder blade last night and started feeling more short of breath this morning. Patient denies fevers chills no lightheadedness or passing out. No cold cough or congestion. No GI or urinary symptoms. He states last time he had a catheter down lower and then it was moved up higher as it was not reinflated properly but states that was a day or 2 later. He has not had any issues in between that he is aware of. Is on medications for blood pressure, dyslipidemia. Allergic to E-Mycin. Related Data Home Medications Medication Instructions Recorded Confirmed cholecalciferol (vitamin D3) 50 50 mcg PO BID 07/03/21 04/02/23 mcg (2,000 unit) capsule (Vitamin D3) docusate sodium 100 mg capsule 100 mg PO BID 07/03/21 04/02/23 (Colace) latanoprost 0.005 % eye drops 1 drp ophthalmic (eye) BEDTIME 07/03/21 04/02/23 srdgnlia-dgm-hnbgm acid 0.4 1 tab PO DAILY 07/03/21 04/02/23 mg-lycopene 300 mcg-lutein 250 mcg tablet (Centrum Silver) nystatin 100,000 unit/gram topical 1 applic topical BID PRN Rash 07/03/21 04/02/23 powder omega-3 fatty acids 1,400 mg PO DAILY 07/03/21 04/02/23 rosuvastatin 40 mg tablet 40 mg PO DAILY 07/03/21 04/02/23 timolol 0.5 % eye drops 1 drp ophthalmic (eye) BID 07/03/21 04/02/23 triamterene 75 1 tab PO QAM 07/03/21 04/02/23 mg-hydrochlorothiazide 50 mg tablet vit C 250 mg-vit E 90 mg-zinc 40 1 cap PO DAILY 04/02/23 04/02/23 mg-copper 1 wa-htyvtc-hhtoyl capsule (PreserVision AREDS-2) Allergies Allergy/AdvReac Type Severity Reaction Status Date / Time myacin Allergy Blister Uncoded 04/02/23 14:10 Review of Systems Review of Systems ROS Unobtainable: All systems reviewed & are unremarkable except as noted in HPI and below Patient History Medical History History of prostate cancer CLL (chronic lymphocytic leukemia) Hyperlipidemia Hypertension Aortic stenosis Surgical History History of cataract extraction Status post implantation of artificial urinary sphincter History of prostatectomy Family History Father Congestive heart failure Mother Hypertension Social History household members: significant other Smoking Status: Never smoker alcohol intake: current Smoking Status: Never smoker alcohol intake frequency: holidays/special occasions only Substance Use Type: does not use Exam Narrative Exam Narrative: GENERAL: Alert and oriented x three, elderly male in mild distress. Patient ambulated into the department. HEENT: Head normocephalic, atraumatic, EOMI, pupils reactive, face symmetric, moist mucous membranes NECK: Supple, full range of motion CARDIOVASCULAR: Regular rate and rhythm without murmurs, rubs or gallops. RESPIRATORY: Breath sounds decreased breath sounds on the left, no wheezes rales or rhonchi. Mild tachypnea. ABDOMEN: Soft, nontender. Normoactive bowel sounds all 4 quadrants. No guarding or rebound, rigidity, no mass : No CVA tenderness EXTREMITIES: Normal range of motion, no clubbing or edema. Neurovascularly intact NEUROLOGICAL: Cranial nerves II through XII grossly intact. Moving all extremities SKIN: Warm, dry, no petechiae, no rashes or lesions. Initial Vital Signs Initial Vital Signs: Vital Signs Temperature 97.7 F 04/02/23 14:11 Pulse Rate 99 H 04/02/23 14:11 Respiratory Rate 18 04/02/23 14:11 Blood Pressure 137/86 04/02/23 14:11 Pulse Oximetry 95 04/02/23 14:11 Oxygen Delivery Method Room Air 04/02/23 14:11 Procedures Procedural Sedation Consent signed: Yes Time out performed: Yes Indication: other (chest tube) ASA Class: II Mallampati Airway Classification: Class II Preparation: maintainability engineer applied, pulse oximeter, capnometry used, supplemental O2 applied, suction/airway equipment at bedside and IV secured IV Propofol dose (mg): 40 ED Sedation Level: Moderate (Concious) Patient Tolerated Procedure: Well and No complications Complications: none Additional Comments: Patient had chest tube placed by Dr. Gu during procedure. Course Orders Ordered: Acetaminophen (Acetaminophen 325 Mg Tablet) 650 mg PO Q6H PRN PRN Reason: Fever/Mild Pain (1-3) Hydrocodone Bitart/Acetaminophen (Hydrocodone/Acet 5/325 Tablet) 1 tab PO Q4H PRN PRN Reason: Pain, Moderate (4-6) Hydrocodone Bitart/Acetaminophen (Hydrocodone/Acet 5/325 Tablet) 2 tab PO Q4H PRN PRN Reason: Pain, Severe (7-10) Amlodipine Besylate (Amlodipine 5 Mg Tablet) 10 mg PO DAILY [facility] Atorvastatin Calcium (Atorvastatin 20 Mg Tablet) 80 mg PO DAILY [facility] Hydromorphone HCl (Hydromorphone 0.5 Mg Inj) 0.25 mg IV Q2H PRN PRN Reason: Pain, Severe (7-10) Ibuprofen (Ibuprofen 600 Mg Tablet) 600 mg PO Q6H PRN PRN Reason: Fever/Mild Pain (1-3) Latanoprost (Latanoprost 0.005% Ophth 2.5 Ml) 1 drops EYE-BOTH DAILY [facility] Lisinopril (Lisinopril 20 Mg Tablet) 40 mg PO DAILY [facility] Naloxone HCl (Naloxone 0.4 Mg/Ml Vial) 0.2 mg IV Q2MIN PRN PRN Reason: Opiate Reversal Ondansetron HCl (Ondansetron 4 Mg/2 Ml Inj) 4 mg IV Q8HR PRN PRN Reason: Nausea And Vomiting Sodium Chloride (Sodium Chloride 0.9% Flush) 10 ml IV BID [facility] Last Admin: 04/02/23 20:40 Dose: 10 ml Documented By: NGA Sodium Chloride (Sodium Chloride 0.9% Flush) 10 ml IV PRN PRN PRN Reason: Flush Timolol Maleate (Timolol 0.5% Ophth) 1 drops EYE-BOTH DAILY [facility] Triamterene/Hydrochlorothiazide (Triamterene/Hctz 37.5/25 Capsule) 1 cap PO DAILY [facility] Last Admin: 04/02/23 18:09 Dose: 1 cap Documented By: LULA Discontinued Medications Non-Formulary Medication (Tadalafil) 10 mg PO DAILY PRN PRN Reason: intercourse Non-Formulary Medication (Rosuvastatin) 40 mg PO DAILY [facility] Non-Formulary Medication (Timolol) 1 drop OPHTHALMIC (EYE) DAILY [facility] Propofol (Propofol 200 Mg/20 Ml Vial) 80 mg IV NOW ONE Stop: 04/02/23 16:09 Last Admin: 04/02/23 16:21 Dose: 40 mg Documented By: TRICIA Vital Signs Vital signs: Vital Signs - 8 hr 04/02/23 14:11 04/02/23 15:10 04/02/23 15:11 Temperature 97.7 F Pulse Rate 99 H Respiratory Rate 18 46 H Blood Pressure 137/86 185/99 H Pulse Oximetry 95 Oxygen Delivery Method Room Air Oxygen Flow Rate 04/02/23 15:11 04/02/23 15:30 04/02/23 15:31 Temperature Pulse Rate 106 H 89 89 Respiratory Rate 28 H 16 21 Blood Pressure Pulse Oximetry 95 100 100 Oxygen Delivery Method Non -Rebreather Non -Rebreather Oxygen Flow Rate 10 10 04/02/23 15:31 04/02/23 16:00 04/02/23 16:00 Temperature Pulse Rate 92 H Respiratory Rate 29 H Blood Pressure 136/82 131/77 Pulse Oximetry 100 Oxygen Delivery Method Non -Rebreather Oxygen Flow Rate 10 04/02/23 16:24 04/02/23 16:24 04/02/23 16:30 Temperature Pulse Rate 85 84 Respiratory Rate 28 H 32 H Blood Pressure 115/70 Pulse Oximetry 97 97 Oxygen Delivery Method Nasal Cannula Nasal Cannula Oxygen Flow Rate 2 2 04/02/23 16:30 04/02/23 16:36 04/02/23 16:36 Temperature Pulse Rate 86 Respiratory Rate 32 H Blood Pressure 135/72 136/65 Pulse Oximetry 97 Oxygen Delivery Method Nasal Cannula Oxygen Flow Rate 2 04/02/23 16:41 04/02/23 16:41 04/02/23 16:42 Temperature Pulse Rate 88 78 Respiratory Rate 16 Blood Pressure 161/71 H Pulse Oximetry 98 Oxygen Delivery Method Nasal Cannula Oxygen Flow Rate 2 MDM - Chest Pain Lab Data 04/02/23 14:23 04/02/23 14:23 Labs: Lab Results 04/02/23 Range/Units 14:23 WBC 23.2 H (4.5-11.0) X10^3/uL RBC 4.75 (4.5-5.9) X10^6/uL Hgb 14.5 (13.5-17.5) g/dL Hct 43.9 (41-53) % MCV 92.5 (80-100) fL MCH 30.6 (26-34) PG MCHC 33.0 (30-36) % RDW 14.9 H (11.6-14.8) % Plt Count 260 (150-400) X10^3/uL Neut % (Auto) Not Reportable Lymph % (Auto) Not Reportable [place] % (Auto) Not Reportable Eos % (Auto) Not Reportable Baso % (Auto) Not Reportable Lymph # (Auto) Not Reportable [place] # (Auto) Not Reportable Baso # (Auto) Not Reportable Total Counted 100 Seg Neutrophils % 26.0 L (38-70) % Lymphocytes % (Manual) 60.0 H (25-45) % Atypical Lymphs % 6.0 H ( - 0) % Monocytes % (Manual) 7.0 (2-11) % Eosinophils % (Manual) 1.0 L (2-4) % Neutrophils # (Manual) 6032 H (2297-3113) /uL [place] Cells 2+ H RBC Morphology Normal morphology PT 12.8 H (9.4-12.5) SECONDS INR 1.1 (0.9-1.3) Sodium 136 L (137-145) mmol/L Potassium 4.0 (3.4-5.1) mmol/L Chloride 96 L (98-107) mmol/L Carbon Dioxide 27 (22-32) mmol/L BUN 35 H (9-20) mg/dL Creatinine 1.50 H (0.66-1.25) mg/dL Estimated GFR 45 L (>60) mL/min BUN/Creatinine Ratio 23.3 H (6-22) Glucose 120 H (80-110) mg/dL Lactate 2.3 H (0.7-2.1) mmol/L Calcium 10.3 H (8.4-10.2) mg/dL Total Bilirubin 0.8 (0.2-1.3) mg/dL AST 30 (17-59) IU/L ALT 28 (<50) IU/L Alkaline Phosphatase 67 (38-126) U/L Troponin I < 0.012 (0.01-0.034) ng/mL NT-Pro-B Natriuret Pep 318 (<450) pg/mL Total Protein 8.0 (6.3-8.2) g/dL Albumin 4.4 (3.5-5.0) g/dL Globulin 3.6 (1.7-4.1) g/dL Albumin/Globulin Ratio 1.2 (1.0-2.8) Imaging Data Chest x-ray: My Impression: Left pneumothorax, no tension appreciated. Radiologist's Impression: DeliaJamal Miriam?(Vinicius)??87??M??1935 ? Allergy/Adv: [myacin] Close Chest X-Ray (Signed) Demetrius Sierra - 04/02/23 Chest X-Ray (Signed) Kari Arcos - 03/18/22 Chest X-Ray (Signed) Kari Arcos - 03/18/22 Chest X-Ray (Signed) Rodolfo Gordon - 03/17/22 Chest X-Ray (Signed) Moo Patrick - 03/17/22 Chest X-Ray (Signed) Gopi Jensen - 03/16/22 Telemetry Strips 03/15/22 Chest X-Ray (Signed) Ashanti Cavazos - 03/15/22 Chest X-Ray (Signed) Miguelina Madrid - 03/15/22 Renal Ultrasound (Signed) Michele Wen - 07/02/21 Chest X-Ray (Signed) Michele Wen - 07/02/21 Launch?[address] [address] XRay Report Signed Patient: Jamal Lin Miriam MR#: [id number] : 1935 Acct:[id number] Age/Sex: 87 / M Date of Service: 04/02/23 Loc: ED Accession Number: [id number] Procedure: XR chest 1V Ordering Provider: Alisha Marc D.O. PROCEDURE: XR CHEST 1V INDICATIONS: Shortness of breath TECHNIQUE: One view of the chest was acquired. COMPARISON: [facility], CR, XR CHEST 1V, 03/15/2022, 18:47. [facility], CR, XR CHEST 1V, 03/17/2022, 12:53. [facility], CR, XR CHEST 1V, 03/18/2022, 7:16. [facility], CR, XR CHEST 1V, 03/18/2022, 12:29. FINDINGS: Surgical changes and devices: None. Lungs and pleura: Left-sided pneumothorax is 3.8 cm to the thoracic cage right lung and pleural space clear Mediastinum: Mediastinal contours appear normal. Heart size is normal. Bones and chest wall: No suspicious bony lesions. Overlying soft tissues appear unremarkable. IMPRESSION: Recurrent moderate left-sided pneumothorax Note: Critical results were discussed with Dr. Marc at 02:16 PM [place] time on 04/02/23 Approved by: Demetrius Sierra M.D. on 04/02/2023 at 14:16 MDM Narrative Medical decision making narrative: 87-year-old male with prior history of spontaneous pneumothorax approximately a year ago which has since recurred. He uses CPAP at home but no other clear risk factors was not a smoker prior. Had not had issues until last year. Patient arrives appears stable but does have a moderate-sized pneumothorax on the left same side as prior. He is agreeable to procedural sedation and chest tube. He states was quite painful initially the 1st time in his quite open to procedural sedation. Verbal as well as written consent was obtained. Patient does have a white count consistent with his CLL, platelets are appropriate hemoglobin is appropriate creatinine is 1.5 appears fairly close to his baseline, sodium is 136, calcium slightly high at 10- trope negative BNP. Riccarod, general surgery; discussed patient had what sounds like a pigtail and then was converted to chest tube or possibly had a chest tube that had to be Re placed during his hospitalization. He is happy to see the patient and place chest tube and asked if we can perform procedural sedation for the patient. Patient tolerated well and is accepted by Dr. Gu for admission. Repeat chest x-ray was obtained with improvement. Discharge Plan Departure Patient Disposition: Admitted As Inpatient Clinical Impression: Recurrent spontaneous pneumothorax Admit Date/Time: 04/02/23 16:50 Admit Provider: Oscar Gu
[2023-04-02 16:10] LABS: Reflexed Lactate in 2 Hours Y
[2023-04-02] MEDS: propofoL 200 MG/20 ML VIAL 80 MG IV (16:21)
--- NOTE | 2023-04-02 16:31 | DI.RAD.S_ITS ---
PROCEDURE: XR CHEST 1V INDICATIONS: chest tube placement L side TECHNIQUE: One view of the chest was acquired. COMPARISON: [facility], , XR CHEST 1V, 04/02/2023, 14:24. FINDINGS: Surgical changes and devices: Well-positioned left-sided chest tube Lungs and pleura: No residual pneumothorax. Right lung and pleural space clear. Mediastinum: Mediastinal contours appear normal. Heart size is normal. Bones and chest wall: No suspicious bony lesions. Overlying soft tissues appear unremarkable. IMPRESSION: Well-positioned left-sided chest tube without residual pneumothorax Approved by: Demetrius Sierra M.D. on 04/02/2023 at 16:27
--- NOTE | 2023-04-02 16:33 | PC.NURSE ---
Dr. Gu introduced himself to patient and procedural consent was explained and signed. Dr Marc at bedside to assist with sedation medications for patient (see MAR) and Respiratory Therapy at bedside. Pt tolerated procedure well with no complications. Pt was administered 400cc of 0.9% NS during sedation and remained on 2L NC during procedure. Chest tube was inserted at [address] Gu administered sutures at 1633. Pt awake and oriented at 1635. Pt reports feeling much less pain than the last time he received a chest tube. [facility] connected and secured with tape to chest tube. Atrum sitting on ground with no dependant loops, connected to suction. No bubbling in air leak chamber.
--- NOTE | 2023-04-02 16:48 | PM.OP.1 ---
Operative Date/Time/Diagnoses Date of procedure: 04/02/23 Time of procedure: 16:48 Pre-op diagnosis: Recurrent left pneumothorax Post-op diagnosis: same Procedure & Clinicians Procedure: Left tube thoracostomy Same procedure as scheduled: Yes Surgeon: Oscar Gu Anesthesia Type: Sedation Operative Notes Procedure in detail: Preoperative diagnosis: Recurrent left spontaneous pneumothorax Postoperative diagnosis: Same Surgeon: Oscar Gu MD Anesthesia: Propofol sedation by Alisha Marc DO The patient is an 87-year-old man who presented with a left pneumothorax. He had had a left pneumothorax one year prior which was treated with a chest tube. The cause was ever identified. Consent was obtained. The left chest was prepped and draped in the usual fashion. A time-out was performed. Lidocaine was injected in the left lateral chest wall just lateral and inferior to the nipple. Once the patient was adequately sedated a 2 cm skin incision was made with a 15 blade scalpel. A tunnel was created bluntly using Peon clamp. Once the rib was reached additional local was injected along the rib. The clamp was then used to puncture through the intercostal muscle just above 1 of the ribs, most likely the eighth rib. Next a 20 [place] trocar chest tube was inserted into the chest and angled laterally and towards the apex. A cabrera of air was noted. The chest tube was then connected to the water seal chamber. A buried 3-0 Vicryl suture was used to close the subcutaneous tissue around the tube. An 0 silk was placed around the tube as a U-stitch and left on tied. The tube was secured to the skin with a 2-0 nylon stitch. Dressings were applied. There was bubbling coming through the water seal and good respiratory isolation. A chest tube was ordered to confirm proper position of the tube with re-expansion of the left lung. EBL: 5 mL Post-operative Condition: stable Disposition: Acute Care
--- NOTE | 2023-04-02 16:58 | P.HP_ITS ---
History of Present Illness History of Present Illness Date Patient Seen: 04/02/23 Time Patient Seen: 16:58 Chief complaint: pain in lung hx of collapsed lung Narrative: Vinicius is an 87-year-old man who presents with a left pneumothorax. He was seen about 1 year ago for the same and it was treated with initially a pigtail catheter in the chest but this became dislodged and he needed a formal chest tube. He had no obvious cause for the pneumothorax. He has never had 1 before. He re-presented this evening complaining of about 18 hours of left-sided chest pain. A chest x-ray shows a recurrent left pneumothorax. He has CLL and the chronically elevated white count. No history of smoking. [facility] Medical History History of prostate cancer CLL (chronic lymphocytic leukemia) Hyperlipidemia Hypertension Aortic stenosis Surgical History History of cataract extraction Status post implantation of artificial urinary sphincter History of prostatectomy Family History Father Congestive heart failure Mother Hypertension Social History household members: spouse Smoking Status: Never smoker Meds Home Medications and Allergies Home Medications Medication Instructions Recorded Confirmed Type amlodipine 10 mg tablet 10 mg PO DAILY 07/03/21 03/15/22 History cholecalciferol (vitamin D3) 50 50 mcg PO BID 07/03/21 03/15/22 History mcg (2,000 unit) capsule (Vitamin D3) docusate sodium 100 mg capsule 100 mg PO BID 07/03/21 03/15/22 History (Colace) latanoprost 0.005 % eye drops 1 drp ophthalmic (eye) DAILY 07/03/21 03/15/22 History lisinopril 40 mg tablet 40 mg PO DAILY 07/03/21 03/15/22 History cgllwjub-tmf-elsej acid 0.4 1 tab PO DAILY 07/03/21 03/15/22 History mg-lycopene 300 mcg-lutein 250 mcg tablet (Centrum Silver) nystatin 100,000 unit/gram topical 1 applic topical BID 07/03/21 03/15/22 History powder omega-3 fatty acids 1,400 mg PO DAILY 07/03/21 03/15/22 History rosuvastatin 40 mg tablet 40 mg PO DAILY 07/03/21 03/15/22 History tadalafil 10 mg tablet 10 mg PO DAILY PRN intercourse 07/03/21 03/15/22 History timolol 0.5 % eye drops 1 drp ophthalmic (eye) DAILY 07/03/21 03/15/22 History triamterene 75 1 tab PO QAM 07/03/21 03/15/22 History mg-hydrochlorothiazide 50 mg tablet Allergies Allergy/AdvReac Type Severity Reaction Status Date / Time myacin Allergy Blister Uncoded 04/02/23 14:10 Exam Vital Signs (past 8 hours): - 04/02/23 14:11 04/02/23 15:10 04/02/23 15:11 Temperature 97.7 F Pulse Rate 99 H Respiratory Rate 18 46 H Blood Pressure 137/86 185/99 H Pulse Oximetry 95 Oxygen Delivery Method Room Air Oxygen Flow Rate 04/02/23 15:11 04/02/23 15:30 04/02/23 15:31 Temperature Pulse Rate 106 H 89 89 Respiratory Rate 28 H 16 21 Blood Pressure Pulse Oximetry 95 100 100 Oxygen Delivery Method Non -Rebreather Non -Rebreather Oxygen Flow Rate 10 10 04/02/23 15:31 04/02/23 16:00 04/02/23 16:00 Temperature Pulse Rate 92 H Respiratory Rate 29 H Blood Pressure 136/82 131/77 Pulse Oximetry 100 Oxygen Delivery Method Non -Rebreather Oxygen Flow Rate 10 04/02/23 16:24 04/02/23 16:24 04/02/23 16:30 Temperature Pulse Rate 85 84 Respiratory Rate 28 H 32 H Blood Pressure 115/70 Pulse Oximetry 97 97 Oxygen Delivery Method Nasal Cannula Nasal Cannula Oxygen Flow Rate 2 2 04/02/23 16:30 04/02/23 16:36 04/02/23 16:36 Temperature Pulse Rate 86 Respiratory Rate 32 H Blood Pressure 135/72 136/65 Pulse Oximetry 97 Oxygen Delivery Method Nasal Cannula Oxygen Flow Rate 2 04/02/23 16:41 04/02/23 16:41 04/02/23 16:42 Temperature Pulse Rate 88 78 Respiratory Rate 16 Blood Pressure 161/71 H Pulse Oximetry 98 Oxygen Delivery Method Nasal Cannula Oxygen Flow Rate 2 Oxygen Delivery Method Nasal Cannula Oxygen Flow Rate 2 Const General: healthy appearing Chest Other: Decreased breath sounds on the left chest Objective Labs 04/02/23 14:23 04/02/23 14:23 Labs: Laboratory Results - last 24 hr 04/02/23 14:23 WBC 23.2 H RBC 4.75 Hgb 14.5 Hct 43.9 MCV 92.5 MCH 30.6 MCHC 33.0 RDW 14.9 H Plt Count 260 Neut % (Auto) Not Reportable Lymph % (Auto) Not Reportable [place] % (Auto) Not Reportable Eos % (Auto) Not Reportable Baso % (Auto) Not Reportable Lymph # (Auto) Not Reportable [place] # (Auto) Not Reportable Baso # (Auto) Not Reportable Total Counted 100 Seg Neutrophils % 26.0 L Lymphocytes % (Manual) 60.0 H Atypical Lymphs % 6.0 H Monocytes % (Manual) 7.0 Eosinophils % (Manual) 1.0 L Neutrophils # (Manual) 6032 H Smudge Cells 2+ H RBC Morphology Normal morphology PT 12.8 H INR 1.1 Sodium 136 L Potassium 4.0 Chloride 96 L Carbon Dioxide 27 BUN 35 H Creatinine 1.50 H Estimated GFR 45 L BUN/Creatinine Ratio 23.3 H Glucose 120 H Lactate 2.3 H Calcium 10.3 H Total Bilirubin 0.8 AST 30 ALT 28 Alkaline Phosphatase 67 Troponin I < 0.012 NT-Pro-B Natriuret Pep 318 Total Protein 8.0 Albumin 4.4 Globulin 3.6 Albumin/Globulin Ratio 1.2 Assessment & Plan Assessment and plan (1) Pneumothorax on left: Status: Acute Plan Vinicius is an 87-year-old man with a recurrent left pneumothorax. He was consented for tube thoracostomy under sedation in the ER. See the separate operative note for details. He will be admitted for chest tube management.
[2023-04-02] MEDS: TRIAMTERENE/HCTZ 37.5/25 CAPSULE 1 CAP PO (18:09)
--- NOTE | 2023-04-02 18:55 | PC.NURSE ---
rec'd pt from ED awake and alert; on 02/2l/nc at arrival but placed on room air about 15 minutes later with o2 sat 96%; pt reports minimal pain 3 that does not need any intervention; left chest tube to 20cm suction; no air leak noted, small amt serosanguinous drainage; pt w/ healing rash to his right mid back from recent bout of shingles, bandaid to upper mid back from recent cyst removal; scattered bruising to bilateral arms
[2023-04-02] MEDS: SODIUM CHLORIDE 0.9% FLUSH 10 ML IV (20:40)
--- NOTE | 2023-04-02 21:34 | PC.NURSE ---
Patient is alert and oriented. Breath sounds CTA with RA sat of 96%. Denies SOB at rest but states he has been SOB with exertion. CT to 20cm H2O suction with no drainage in chamber but does have small amount serosanguinous drainage in tubing. HRR w/telemetry reading of SR. Denied nausea. BT present and abdomen is soft. Has artificial urinary sphincter and is voiding per urinal; denies dysuria. Is able to move himself in bed but was provided SBA when out of bed as reports he typically is a little unsteady initially when walking. Area on right side of back where he had shingles 10d ago and has some scabbed lesions within a rash type area. Bandaid to mid upper back is CDI. Wearing bilateral calf SCD's. Denied pain. Fall risk score is moderate and bed alarm is activated.
[2023-04-03] VITALS (20 sets, daily range): BP systolic 58–112; BP diastolic 28–68; PULSE 66–113; RESP 17–20; TEMP 36.1–36.9; O2SAT 91–99
--- NOTE | 2023-04-03 07:00 | DI.RAD.S_ITS ---
PROCEDURE: XR CHEST 1V INDICATIONS: Left pneumothorax status post chest tube TECHNIQUE: One view of the chest was acquired. COMPARISON: [facility], , XR CHEST 1V, 04/02/2023, 16:35. FINDINGS: Surgical changes and devices: Left-sided chest tube. Lungs and pleura: Left basilar atelectasis, as before. No new lung abnormality. No pleural effusions or definite pneumothorax. Mediastinum: Mediastinal contours appear normal. Heart size is normal. Bones and chest wall: No suspicious bony lesions. Overlying soft tissues appear unremarkable. IMPRESSION: 1. Left-sided chest tube is in appropriate position. No definitive pneumothorax. 2. Left basilar atelectasis, as before. No new lung abnormality. Dictated by: Zuly Castano M.D. on 04/03/2023 at 9:37 Approved by: Zuly Castano M.D. on 04/03/2023 at 10:32
[2023-04-03] MEDS: AMLODIPINE 5 MG TABLET 10 MG PO (09:18)
[2023-04-03] MEDS: SODIUM CHLORIDE 0.9% FLUSH 10 ML IV (09:19)
[2023-04-03] MEDS: TRIAMTERENE/HCTZ 37.5/25 CAPSULE 1 CAP PO (09:19)
[2023-04-03] MEDS: ATORVASTATIN 20 MG TABLET 80 MG PO (09:19)
[2023-04-03] MEDS: lisinopriL 20 MG TABLET 40 MG PO (09:19)
[2023-04-03] MEDS: LATANOPROST 0.005% OPHTH 2.5 ML 1 DROPS EYE-BOTH (09:20)
--- NOTE | 2023-04-03 12:44 | PM.PN.1 ---
Subjective Subjective Date Patient Seen: 04/03/23 Time Patient Seen: 12:44 Interval history: Feeling well. No complaints. Chest x-ray this morning shows no pneumothorax Exam Vital Signs (past 8 hours): - 04/03/23 07:11 04/03/23 09:19 Temperature 97.0 F L Pulse Rate 69 69 Respiratory Rate 17 Blood Pressure 111/68 111/68 Pulse Oximetry 96 Oxygen Flow Rate 0 Oxygen Delivery Method Room Air Oxygen Flow Rate 0 Narrative Exam Narrative: No respiratory isolation No air leak Objective Labs 04/02/23 14:23 04/02/23 14:23 Labs: Laboratory Results - last 24 hr 04/02/23 04/02/23 14:23 16:57 WBC 23.2 H RBC 4.75 Hgb 14.5 Hct 43.9 MCV 92.5 MCH 30.6 MCHC 33.0 RDW 14.9 H Plt Count 260 Neut % (Auto) Not Reportable Lymph % (Auto) Not Reportable [place] % (Auto) Not Reportable Eos % (Auto) Not Reportable Baso % (Auto) Not Reportable Lymph # (Auto) Not Reportable [place] # (Auto) Not Reportable Baso # (Auto) Not Reportable Total Counted 100 Seg Neutrophils % 26.0 L Lymphocytes % (Manual) 60.0 H Atypical Lymphs % 6.0 H Monocytes % (Manual) 7.0 Eosinophils % (Manual) 1.0 L Neutrophils # (Manual) 6032 H Smudge Cells 2+ H RBC Morphology Normal morphology PT 12.8 H INR 1.1 Sodium 136 L Potassium 4.0 Chloride 96 L Carbon Dioxide 27 BUN 35 H Creatinine 1.50 H Estimated GFR 45 L BUN/Creatinine Ratio 23.3 H Glucose 120 H Lactate 2.3 H 2.0 Calcium 10.3 H Total Bilirubin 0.8 AST 30 ALT 28 Alkaline Phosphatase 67 Troponin I < 0.012 NT-Pro-B Natriuret Pep 318 Total Protein 8.0 Albumin 4.4 Globulin 3.6 Albumin/Globulin Ratio 1.2 PFSH Medical History History of prostate cancer CLL (chronic lymphocytic leukemia) Hyperlipidemia Hypertension Aortic stenosis Surgical History History of cataract extraction Status post implantation of artificial urinary sphincter History of prostatectomy Family History Father Congestive heart failure Mother Hypertension Social History household members: significant other Smoking Status: Never smoker alcohol intake: current Assessment & Plan Assessment and plan (1) Recurrent spontaneous pneumothorax: Status: Acute Plan It appears the pneumothorax has resolved and there was no apparent air leak. We will perform clamp trial starting at 5:00 a.m. tomorrow and check a chest x-ray at 7 If no evidence of pneumothorax the tube will be removed and he can be discharged tomorrow. Quality VTE Deep Vein Thrombosis/Pulmonary Embolism Present on Admission: No
--- NOTE | 2023-04-03 13:44 | CM.DANOTE ---
Patient is an 87 yo male who was admitted on 04/02/23 for Lung Collapse. Pt has [facility] for insurance and his PCP is Dr. Harpreet Stanley. EMR was reviewed. Per MD, pt with spontaneous pneumothorax and recent shingles outbreak and hx of pneumothorax last year as well. Per Surgeon, pt with chest tube and pneumothorax seems to be resolving and plan to clamp the chest tube in the AM and then repeat chest xray towards plan of chest tube removal and discharge home tomorrow if pt remains stable. SW met bedside with pt and explained role and pt confirms he lives in [place] with his and both are quite active and independent at baseline and no DME for ambulation and pt still drives. Pt denies any hx of HH or SNF. Pt confirms his DPOA is his spouse Neda and they have 3 adult children but none live locally but come to visit when they can. Pt confirms almost a year ago in Feb 2022 pt had chest tube and was able to successfully remove and pt does not anticipate any discharge needs and preference is home and states his will provide transport at d/c. Pt states he already has an appointment with PCP scheduled for this month on 04/18/23. Pt also confirms he has ambulated independently in room and feels steady. Plan: SW to follow closely tomorrow to confirm if chest tube can be removed towards plan of d/c home with spouse assist and any further identified discharge planning needs. GARCIA Vega Discharge Planning/Care Management Advanced directive, confirm from FAMILY Start: 04/02/23 17:53 Freq: Q24H Status: Active Protocol: Document 04/02/23 17:37 (Rec: 04/02/23 18:06 [id number]) Advance Directive, confirm on record Time 17:37 Person contacted pt brought copy Copy received Yes CM Discharge Assessment Start: 04/03/23 13:42 Freq: Status: Active Protocol: Document 04/03/23 13:42 BF (Rec: 04/03/23 13:44 [id number]) Discharge Planning Assessment Assigned Alarm Signaler GARCIA Kovacs DPOA/Assigned Designee Name spouse Neda Contact Information [phone] Advance Directives? Yes Advance Directives on File No History Provided By Patient,Medical Record Has Patient been admitted in last 30 No days? Prior Living Arrangements House Household Members spouse Type of transporation used prior to Drives own vehicle admit Independent with ADL's Yes Is patient alert and oriented? Yes Caregiver for Another No Barriers to Discharge No Discharge Plan Home Transportation Arrangement spouse plans to provide transport at d/c Referrals Initiated None needed Additional Comment Pending ability to remove chest tube Whiteboard Updated in Patient Room with Yes name and ext. # of Alarm Signaler Review Status In Process Please Provide Date Initial DC 04/03/23 Assessment Was Performed Next Review Type Continued Stay Review
--- NOTE | 2023-04-03 14:05 | PC.NURSE ---
Addendum entered by Vanessa Pete R.N. 04/03/23 14:28: Notified Dr Gu regarding BP of 58/28-patient feeling weak. New orders: 500 mL Bolus and chest xray to check chest tube. Patient A&O, responding appropriately, bed alarm on and call light within reach. Original Note: Notified Dr. Gu regarding low BP- 76/38 HR 113. No orders received. Patient asymptomatic, resting comfortably, bed alarm on and call light in reach.
--- NOTE | 2023-04-03 14:25 | DI.RAD.S_ITS ---
PROCEDURE: XR CHEST 1V INDICATIONS: chest tube placement TECHNIQUE: One view of the chest was acquired. COMPARISON: [facility], CR, XR CHEST 1V, 03/15/2022, 17:34. [facility], CR, XR CHEST 1V, 04/03/2023, 7:06. [facility], CR, XR CHEST 1V, 04/02/2023, 16:35. FINDINGS: Surgical changes and devices: A left-sided chest tube is seen in stable position. Lungs and pleura: Left basilar atelectasis again noted. No residual pneumothorax is seen. No pleural effusion. Mediastinum: Mediastinal contours appear normal. Heart size is normal. Bones and chest wall: No suspicious bony lesions. Overlying soft tissues appear unremarkable. IMPRESSION: Stable left-sided chest tube. No definite residual pneumothorax. Approved by: Gopi Jensen M.D. on 04/03/2023 at 15:06
[2023-04-03] MEDS: SODIUM CHLORIDE 0.9% 500 ML 1000 ML IV ×2 (14:30→16:01)
[2023-04-03 17:01] LABS: Add Manual Diff / Slide Review YES; Hematocrit 37.7 % (41-53); Hemoglobin 12.4 g/dL (13.5-17.5); Mean Corpuscular HGB Conc 32.8 % (30-36); Mean Corpuscular Hemoglobin 30.1 PG (26-34); Mean Corpuscular Volume 91.7 fL (80-100); Platelet Count 192 X10^3/uL (150-400); Red Blood Cell Count 4.11 X10^6/uL (4.5-5.9); Red Cell Distribution Width 15.6 % (11.6-14.8); White Blood Cell Count 18.7 X10^3/uL (4.5-11.0)
[2023-04-03 17:11] LABS: BUN Creatinine Ratio 20.8 (6-22); Blood Urea Nitrogen 33 mg/dL (9-20); Calcium 8.8 mg/dL (8.4-10.2); Carbon Dioxide 26 mmol/L (22-32); Chloride 99 mmol/L (98-107); Estimated Glomerular Filt Rate 42 mL/min (>60); Glucose 88 mg/dL (80-110); HEMOLYSIS < 15 (0-50); Magnesium 1.9 mg/dL (1.6-2.3); Potassium 3.7 mmol/L (3.4-5.1); Sodium 134 mmol/L (137-145)
[2023-04-03 17:13] LABS: Neutrophils Absolute Manual 6358 /uL (3000-5900); RBC Morphology Normal Morphology; Total Cells Counted 100
--- NOTE | 2023-04-03 17:43 | P.CONS_ITS ---
History of Present Illness Consult details Date Patient Seen: 04/03/23 Time Patient Seen: 17:54 Chief complaint: pain in lung hx of collapsed lung Reason for consult: hypotension Requesting provider: Oscar Gu Narrative: Jamal Lin is an 86-year-old male with a history of aortic stenosis, history of prostate cancer with prostatectomy and artificial urethral sphincter placement, essential hypertension hyperlipidemia, CCL with chronically elevated WBC admitted with a recurrent pneumothorax to the surgical service yesterday evening. Chest tube was in place. Medicine was consulted for hypotension with BP as low as 58/28 in the chart. He was minimally symptomatic with mild dizziness. BP improved to 95/48 with 500 cc bolus. He did receive his usual home BP medications this morning as his BP was normal. Repeat CXR today shows a chest tube in place with no residual pneumothorax. He takes triamterine HCTZ for HTN at home. He was given 10 mg of amlodipine and 40 mg of lisinopril this morning per EMR. He improved BP hernandes with a couple of fluid boluses. He denies chest pain, fever, chills, nausea, vomiting, abdominal pain, diarrhea. He does not feel dizzy but still has his chest tube in place and has not been moving much. I stopped BP medications and ordered continuous fluid overnight. Meds Home Medications and Allergies Home Medications Medication Instructions Recorded Confirmed Type cholecalciferol (vitamin D3) 50 50 mcg PO BID 07/03/21 04/02/23 History mcg (2,000 unit) capsule (Vitamin D3) docusate sodium 100 mg capsule 100 mg PO BID 07/03/21 04/02/23 History (Colace) latanoprost 0.005 % eye drops 1 drp ophthalmic (eye) BEDTIME 07/03/21 04/02/23 History diemhzec-hrk-xhkut acid 0.4 1 tab PO DAILY 07/03/21 04/02/23 History mg-lycopene 300 mcg-lutein 250 mcg tablet (Centrum Silver) nystatin 100,000 unit/gram topical 1 applic topical BID PRN Rash 07/03/21 04/02/23 History powder omega-3 fatty acids 1,400 mg PO DAILY 07/03/21 04/02/23 History rosuvastatin 40 mg tablet 40 mg PO DAILY 07/03/21 04/02/23 History timolol 0.5 % eye drops 1 drp ophthalmic (eye) BID 07/03/21 04/02/23 History triamterene 75 1 tab PO QAM 07/03/21 04/02/23 History mg-hydrochlorothiazide 50 mg tablet vit C 250 mg-vit E 90 mg-zinc 40 1 cap PO DAILY 04/02/23 04/02/23 History mg-copper 1 lx-cvdxbw-ehyuoo capsule (PreserVision AREDS-2) Allergies Allergy/AdvReac Type Severity Reaction Status Date / Time myacin Allergy Blister Uncoded 04/02/23 14:10 Review of Systems Review of Systems Narrative: All other systems reviewed with the patient and are negative unless otherwise stated. Exam Vital Signs (past 8 hours): - 04/03/23 12:50 04/03/23 12:55 04/03/23 13:01 Temperature Pulse Rate 110 H 113 H 92 H Respiratory Rate 20 Blood Pressure 81/40 L 76/38 L 93/66 Pulse Oximetry 95 96 96 Oxygen Flow Rate 0 0 04/03/23 13:47 04/03/23 14:00 04/03/23 14:27 Temperature 96.9 F L Pulse Rate 105 H Respiratory Rate Blood Pressure 68/43 L 58/28 L Pulse Oximetry Oxygen Flow Rate 04/03/23 14:48 04/03/23 15:09 04/03/23 15:53 Temperature Pulse Rate 75 66 71 Respiratory Rate Blood Pressure 77/40 L 86/43 L 76/42 L Pulse Oximetry Oxygen Flow Rate 04/03/23 17:15 04/03/23 17:18 Temperature 98.4 F Pulse Rate 83 Respiratory Rate Blood Pressure 95/48 L Pulse Oximetry Oxygen Flow Rate Oxygen Delivery Method Room Air Oxygen Flow Rate 0 Narrative Exam Narrative: General:? Patient is well developed and well nourished, in no distress at this time. HEENT:? Normocephalic, atraumatic, extraocular muscles intact, oral pharynx is clear and mucous membranes are moist. Neck: supple and symmetric, trachea is midline, no cervical adenopathy. Negative for JVD Chest:? Normal AP diameter and contour without kyphoscoliosis, no tachypnea, equal chest rise bilaterally. Lungs:? CTA b/l no wheezing rhonchi or rales. Chest tube in place on the L Cardio:?RRR no m/r/g. Abdomen: S NT ND. No CVA tenderness. Musculoskeletal:? Muscle strength and tone are equal within normal limits, no deformity. Extremities: No edema or joint effusions. No cyanosis or clubbing. Skin:? Pale,? Warm to touch,dry and intact without rashes, ulcerations or petechiae.? Neuro:? Alert and orientated x3,? sensation to touch intact in all extremities, no gross deficits noted of cranial nerves. Psych:? Patient has a well-kept appearance, appropriate affect, mental status attitude thought context and judgment are appropriate for age. Objective Labs 04/03/23 16:50 04/03/23 16:50 Labs: Laboratory Results - last 24 hr 04/03/23 16:50 WBC 18.7 H RBC 4.11 L Hgb 12.4 L Hct 37.7 L MCV 91.7 MCH 30.1 MCHC 32.8 RDW 15.6 H Plt Count 192 Neut % (Auto) Not Reportable Lymph % (Auto) Not Reportable [place] % (Auto) Not Reportable Eos % (Auto) Not Reportable Baso % (Auto) Not Reportable Lymph # (Auto) Not Reportable [place] # (Auto) Not Reportable Baso # (Auto) Not Reportable Total Counted 100 Seg Neutrophils % 34.0 L Lymphocytes % (Manual) 58.0 H Monocytes % (Manual) 6.0 Eosinophils % (Manual) 1.0 L Basophils % (Manual) 1.0 Neutrophils # (Manual) 6358 H RBC Morphology Normal morphology Sodium 134 L Potassium 3.7 Chloride 99 Carbon Dioxide 26 BUN 33 H Creatinine 1.59 H Estimated GFR 42 L BUN/Creatinine Ratio 20.8 Glucose 88 Calcium 8.8 Magnesium 1.9 PFSH Medical History History of prostate cancer CLL (chronic lymphocytic leukemia) Hyperlipidemia Hypertension Aortic stenosis Surgical History History of cataract extraction Status post implantation of artificial urinary sphincter History of prostatectomy Family History Father Congestive heart failure Mother Hypertension Social History household members: spouse Tobacco & Substance Use Smoking Status: Never smoker alcohol intake: current Assessment & Plan Assessment & Plan narrative: 1. Hypotension, likely iatrogenic - suspect hypotension is due to amlodipine and lisinopril administration this morning, normally takes triamterine HCTZ at home. - hold all home BP medications - continue prn fluid boluses and continue continuous IV fluids at 125 cc per hour overnight - no signs of sepsis clinically, leukocytosis is improving and patient is well appearing without cough, fever, dysuria, etc to suggest infection. - do not believe aortic stenosis is contributing to hypotension, though proceed cautiously with fluid administration to avoid volume overload. 2. Recurrent pneumothorax - management per primary service 3. HLD - continue home rosuvastatin 4. CKD stage III - monitor renal function, near KATY but will likely improve with fluids. 5. History of aortic stenosis - do not suspect contributory to hypotension, though if not improving consider echo. No clinical evidence of heart failure at this time. Code: Full, surrogate is patient's spouse Medicine will continue to follow for now, discussed above with Dr. Gu. I have utilized all available immediate resources to obtain, update, or review the patient's current medications.
[2023-04-03] MEDS: SODIUM CHLORIDE 0.9% 1,000 ML 125 ML IV (18:14)
[2023-04-03] MEDS: SODIUM CHLORIDE 0.9% 500 ML IV ×2 (19:48→22:56)
--- NOTE | 2023-04-03 23:37 | PC.NURSE ---
Addendum entered by Juju Syed R.N. 04/04/23 07:03: Suction turned off at 0500 per order. Lung sounds are clear. O2 saturation 99% on RA. Denies SOB, chest pain. 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 Patient states he feels fine. Denies pain, nausea, SOB, chest pain. Alert and oriented. Lung sounds are clear, chest tube in place on left side, drsg is CDI. Notified MD Barraza of hypotension, new orders received for 500cc fluid boluses (given at 1900 and 2300). NS continuously infusing @ 125/hr. Will continue to monitor.
[2023-04-04] MEDS: SODIUM CHLORIDE 0.9% 1,000 ML 125 ML IV (01:56)
[2023-04-04 03:30] VITALS: BP 118/55; PULSE 69; O2SAT 95
[2023-04-04 04:00] VITALS: BP 111/37; PULSE 67; RESP 18; TEMP 36.4; O2SAT 96
[2023-04-04 04:40] VITALS: BP 122/47; PULSE 67; O2SAT 96
[2023-04-04 05:08] VITALS: PULSE 67; RESP 18; O2SAT 93
[2023-04-04 08:00] VITALS: BP 116/54; PULSE 78; RESP 17; TEMP 36.3; O2SAT 94
[2023-04-04] MEDS: SODIUM CHLORIDE 0.9% FLUSH 10 ML IV (08:57)
[2023-04-04] MEDS: TIMOLOL 0.5% OPHTH 1 DROPS EYE-LEFT (09:00)
--- NOTE | 2023-04-04 09:10 | PM.PN.1 ---
Subjective Subjective Interval history: Doing well, no pain or dyspnea. Exam Vital Signs (past 8 hours): - 04/04/23 03:30 04/04/23 04:00 04/04/23 04:40 Temperature 97.5 F L Pulse Rate 69 67 67 Respiratory Rate 18 Blood Pressure 118/55 L 111/37 L 122/47 L Pulse Oximetry 95 96 96 Oxygen Delivery Method Oxygen Flow Rate 0 0 0 04/04/23 05:08 04/04/23 08:00 Temperature 97.3 F L Pulse Rate 67 78 Respiratory Rate 18 17 Blood Pressure 116/54 L Pulse Oximetry 93 94 Oxygen Delivery Method CPAP Oxygen Flow Rate 0 0 Oxygen Delivery Method CPAP Oxygen Flow Rate 0 Narrative Exam Narrative: NAD, oriented, normal speech. Lungs are clear, heart is regular. There is no leg edema. Objective Imaging Chest x-ray: Radiologist's impression: IMPRESSION: Chest tube in the left hemithorax. No residual pneumothorax. Post Chest tube removal CXR: Radiologist's impression: Resolution of pneumothorax. Labs 04/03/23 16:50 04/03/23 16:50 Labs: Laboratory Results - last 24 hr 04/03/23 16:50 WBC 18.7 H RBC 4.11 L Hgb 12.4 L Hct 37.7 L MCV 91.7 MCH 30.1 MCHC 32.8 RDW 15.6 H Plt Count 192 Neut % (Auto) Not Reportable Lymph % (Auto) Not Reportable [place] % (Auto) Not Reportable Eos % (Auto) Not Reportable Baso % (Auto) Not Reportable Lymph # (Auto) Not Reportable [place] # (Auto) Not Reportable Baso # (Auto) Not Reportable Total Counted 100 Seg Neutrophils % 34.0 L Lymphocytes % (Manual) 58.0 H Monocytes % (Manual) 6.0 Eosinophils % (Manual) 1.0 L Basophils % (Manual) 1.0 Neutrophils # (Manual) 6358 H RBC Morphology Normal morphology Sodium 134 L Potassium 3.7 Chloride 99 Carbon Dioxide 26 BUN 33 H Creatinine 1.59 H Estimated GFR 42 L BUN/Creatinine Ratio 20.8 Glucose 88 Calcium 8.8 Magnesium 1.9 PFSH Medical History History of prostate cancer CLL (chronic lymphocytic leukemia) Hyperlipidemia Hypertension Aortic stenosis Surgical History History of cataract extraction Status post implantation of artificial urinary sphincter History of prostatectomy Family History Father Congestive heart failure Mother Hypertension Social History household members: spouse Smoking Status: Never smoker alcohol intake: current Assessment & Plan Assessment & Plan narrative: 1. Hypotension, present of admission and improved. -he denies taking any blood pressure medications at home, he says he takes only a statin and his Lasix. We will resume this at home. 2. Recurrent pneumothorax, present on admission and improved. -resolved after removal of chest tube. 3. HLD, stable. - continue home rosuvastatin 4. CKD stage III, stable. - monitor renal function, near KTAY but will likely improve with fluids. 5. History of aortic stenosis, stable and active. - do not suspect contributory to hypotension, though if not improving consider echo. No clinical evidence of heart failure at this time. Code: Full, surrogate is patient's spouse Quality VTE Deep Vein Thrombosis/Pulmonary Embolism Present on Admission: No
--- NOTE | 2023-04-04 10:30 | DI.RAD.S_ITS ---
PROCEDURE: XR CHEST 1V INDICATIONS: chest tube out TECHNIQUE: One view of the chest was acquired. COMPARISON: [facility], CR, XR CHEST 1V, 04/04/2023, 7:32. [facility], CR, XR CHEST 1V, 04/03/2023, 14:33. FINDINGS: Surgical changes and devices: None. Lungs and pleura: Left base mild opacity and suspected scarring and atelectasis similar to prior. No new or enlarging pneumothorax. No drainable effusion. There may be a trace left effusion Mediastinum: Cardiomediastinal contours are unchanged. Bones and chest wall: Degenerative changes. IMPRESSION: Removal of the left chest tube. No new or enlarging pneumothorax. Persistent left base mild opacity and atelectasis. Dictated by: Antwan Horta M.D. on 04/04/2023 at 10:46 Approved by: Antwan Horta M.D. on 04/04/2023 at 10:48
--- NOTE | 2023-04-04 10:54 | P.DS_ITS ---
History of Present Illness History of Present Illness Chief complaint: pain in lung hx of collapsed lung Narrative: Vinicius is an 87-year-old man who presents with a left pneumothorax. He was seen about 1 year ago for the same and it was treated with initially a pigtail catheter in the chest but this became dislodged and he needed a formal chest tube. He had no obvious cause for the pneumothorax. He has never had 1 before. He re-presented this evening complaining of about 18 hours of left-sided chest pain. A chest x-ray shows a recurrent left pneumothorax. He has CLL and the chronically elevated white count. No history of smoking. Discharge Providers Provider Date of admission: 04/02/23 16:50 Discharge Date: 04/04/23 Primary care physician: Harpreet Stanley MD Consults: 04/03/23 15:09 Consult to Hospitalist Service Routine Comment: Consulting Provider: Navarro Rice Reason for consultation: hypotension Has provider been notified: Yes Discharge provider: Oscar Gu MD Summary Hospital Course Discharge Diagnosis: left pneumothorax Hospital Course: The patient was admitted for chest tube management for a left sided pneumothorax. He did not have a persistent air leak. His chest x-rays showed no pneumothorax. His chest tube was removed and he went home. Exam Vital Signs (past 8 hours): - 04/04/23 03:30 04/04/23 04:00 04/04/23 04:40 Temperature 97.5 F L Pulse Rate 69 67 67 Respiratory Rate 18 Blood Pressure 118/55 L 111/37 L 122/47 L Pulse Oximetry 95 96 96 Oxygen Delivery Method Oxygen Flow Rate 0 0 0 04/04/23 05:08 04/04/23 08:00 Temperature 97.3 F L Pulse Rate 67 78 Respiratory Rate 18 17 Blood Pressure 116/54 L Pulse Oximetry 93 94 Oxygen Delivery Method CPAP Oxygen Flow Rate 0 0 Oxygen Delivery Method CPAP Oxygen Flow Rate 0 Objective Labs 04/03/23 16:50 04/03/23 16:50 Labs: Laboratory Results - last 24 hr 04/03/23 16:50 WBC 18.7 H RBC 4.11 L Hgb 12.4 L Hct 37.7 L MCV 91.7 MCH 30.1 MCHC 32.8 RDW 15.6 H Plt Count 192 Neut % (Auto) Not Reportable Lymph % (Auto) Not Reportable [place] % (Auto) Not Reportable Eos % (Auto) Not Reportable Baso % (Auto) Not Reportable Lymph # (Auto) Not Reportable [place] # (Auto) Not Reportable Baso # (Auto) Not Reportable Total Counted 100 Seg Neutrophils % 34.0 L Lymphocytes % (Manual) 58.0 H Monocytes % (Manual) 6.0 Eosinophils % (Manual) 1.0 L Basophils % (Manual) 1.0 Neutrophils # (Manual) 6358 H RBC Morphology Normal morphology Sodium 134 L Potassium 3.7 Chloride 99 Carbon Dioxide 26 BUN 33 H Creatinine 1.59 H Estimated GFR 42 L BUN/Creatinine Ratio 20.8 Glucose 88 Calcium 8.8 Magnesium 1.9 PFSH Medical History History of prostate cancer CLL (chronic lymphocytic leukemia) Hyperlipidemia Hypertension Aortic stenosis Surgical History History of cataract extraction Status post implantation of artificial urinary sphincter History of prostatectomy Family History Father Congestive heart failure Mother Hypertension Social History household members: spouse Smoking Status: Never smoker alcohol intake: current Discharge Plan Discharge Plan Patient Disposition: Home Provider Discharge Comment: Follow up with primary care provider for suture removal. Discharge orders & Medications Prescriptions: Continued latanoprost 0.005 % Drops 1 drp OPHTHALMIC (EYE) BEDTIME Rx Instructions: both eyes timolol 0.5 % Drops 1 drp OPHTHALMIC (EYE) BID Rx Instructions: left eye docusate sodium [Colace] 100 mg Capsule 100 mg PO BID triamterene-hydrochlorothiazid 75-50 mg Tablet 1 tab PO QAM nystatin 100,000 unit/gram Powder 1 applic TOPICAL BID PRN (Reason: Rash) omega-3 fatty acids Capsule 1,400 mg PO DAILY rosuvastatin 40 mg Tablet 40 mg PO DAILY Centrum Silver 0.4-300-250 mg-mcg-mcg Tablet 1 tab PO DAILY cholecalciferol (vitamin D3) [Vitamin D3] 50 mcg (2,000 unit) Capsule 50 mcg PO BID PreserVision AREDS-2 250-90-40-1 mg Capsule 1 cap PO DAILY Follow up/Referrals: Harpreet Stanley MD [Primary Care Provider] - Visit Report/Discharge Packet Stand Alone Forms: Patient Portal/API, Stroke Signs & Symptoms Discharge Data Primary Care Provider: Harpreet Stanley VTE Deep Vein Thrombosis/Pulmonary Embolism Present on Admission: No
--- NOTE | 2023-04-04 11:00 | CM.DPC ---
DCP Cont. Reviewed EMR and team rounds for status updates. Plan is for pt to d/c home today, spouse will transport. No identified DCP needs at this time.
[2023-04-04 11:12] VITALS: BP 109/49; PULSE 60; RESP 17; TEMP 36.3; O2SAT 96
--- NOTE | 2023-04-04 12:45 | DI.RAD.S_ITS ---
PROCEDURE: XR CHEST 1V INDICATIONS: Left pneumothorax TECHNIQUE: One view of the chest was acquired. COMPARISON: [facility], CR, XR CHEST 1V, 04/02/2023, 14:24. [facility], CR, XR CHEST 1V, 04/03/2023, 7:06. [facility], CR, XR CHEST 1V, 04/03/2023, 14:33. FINDINGS: Surgical changes and devices: There is a chest tube on the left with the tip projecting to the left base. Lungs and pleura: No pneumothorax. Left basilar scars and atelectasis. Trace pleural effusions. Mediastinum: Mediastinal contours appear normal. Heart size is normal. Bones and chest wall: No suspicious bony lesions. Overlying soft tissues appear unremarkable. IMPRESSION: Chest tube in the left hemithorax. No residual pneumothorax. Dictated by: Ang Nowak M.D. on 04/04/2023 at 8:23 Approved by: Ang Nowak M.D. on 04/04/2023 at 8:25
== END 2023-04-04 13:23 | disposition home or self-care (01) | DRG 201 ==
LOC: ED 14:53 → AC 16:53
PROVIDERS: Internal Medicine; Admitting Provider Surgery; Emergency Provider Emergency Medicine; PCP Internal Medicine; Referring Provider Emergency Medicine; Visit Provider Surgery
DX: J93.83 Other pneumothorax (principal); I95.89 Other hypotension; E78.5 Hyperlipidemia, unspecified; I12.9 Hypertensive chronic kidney disease with stage 1 through stage 4 chronic kidney disease, or unspecified chronic kidney disease; N18.30 Chronic kidney disease, stage 3 unspecified
CPT/HCPCS: 32551; 36415; 71045; 80048; 80053; 83605; 83735; 83880; 84484; 85007; 85025; 85610; 94660; 99152; 99153; 99221; 99238; 99285; 99291; J2704

== ENCOUNTER → 2023-08-25 11:02 | Outpatient (CLI) | payer MEDICARE, OTHER, SELFPAY ==
[2023-04-02 16:57] VITALS: BMI 28.0
--- NOTE | 2023-08-25 | DI.MRI.S_ITS ---
PROCEDURE: MR LUMBAR SPINE WO CON INDICATIONS: Spinal stenosis, site unspecified TECHNIQUE: Noncontrast sagittal T1 spin echo and T2 fast echo, sagittal STIR, and T2 fast spin echo through the lumbar spine. In cases with scoliosis, additional coronal T2 fast spin echo may be performed. COMPARISON: None. FINDINGS: Image quality: Excellent. Alignment and Curvature: There is trace retrolisthesis of T12 on L1. Bone Marrow: Marrow is of normal overall signal. There is decreased T1 signal within the superior midportion of the L5 vertebral body with hyperintense STIR. There is approximate 47% compression. Spinal Cord: Conus medullaris terminates at the L1-2 level. Visualized cord demonstrates normal signal and size. Paraspinous Soft Tissues: No paravertebral masses. Discs: Multilevel jwsm-kl-ajovpkke disc desiccation. T12-L1: Mild disc bulge without spinal stenosis. Mild bilateral foraminal narrowing. L1-L2: Mild disc bulge without spinal stenosis. Kuzy-yc-ourimevu bilateral foraminal narrowing with facet and ligamentum flavum hypertrophy. L2-L3: Mild disc bulge with avrp-wm-ylhaeioi spinal stenosis. Moderate bilateral foraminal narrowing with facet and ligamentum flavum hypertrophy. L3-L4: Mild disc bulge with uwdy-ey-erumgusc spinal stenosis. Moderate bilateral foraminal narrowing with facet and ligamentum flavum hypertrophy. L4-L5: Mild disc bulge with minimal canal narrowing. Moderate to severe bilateral foraminal narrowing with facet and ligamentum flavum hypertrophy. L5-S1: Mild disc bulge without spinal stenosis. Yxua-sk-jdxpirfx bilateral foraminal narrowing, left greater than right with facet and ligamentum flavum hypertrophy. IMPRESSION: Multilevel disc bulges. Multilevel foraminal narrowing most severe at L4-5 secondary to facet/ligamentum flavum arthropathy. Appearance of 47% subacute compression deformity at L5. Dictated by: Ashanti Cavazos M.D. on 08/25/2023 at 15:18 Approved by: Ashanti Cavazos M.D. on 08/25/2023 at 15:22
== END ==
PROVIDERS: PCP Internal Medicine; Referring Provider Orthopaedic Surgery; Visit Provider Orthopaedic Surgery
DX: M51.36 Other intervertebral disc degeneration, lumbar region (principal); M51.37 Other intervertebral disc degeneration, lumbosacral region; M48.061 Spinal stenosis, lumbar region without neurogenic claudication; M48.07 Spinal stenosis, lumbosacral region; M47.816 Spondylosis without myelopathy or radiculopathy, lumbar region; M47.817 Spondylosis without myelopathy or radiculopathy, lumbosacral region
CPT/HCPCS: 72148

== ENCOUNTER 2024-04-16 14:12 | Emergency (ER) | payer MEDICARE, OTHER, SELFPAY ==
[2023-04-02 16:57] VITALS: BMI 28.0
[2024-04-16] VITALS (9 sets, daily range): BP systolic 181–216; BP diastolic 83–104; PULSE 77–91; RESP 12–23; TEMP 36.7; O2SAT 96–99; BMI 30.7
--- NOTE | 2024-04-16 14:24 | EKG_ITS ---
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
--- NOTE | 2024-04-16 14:24 | DI.RAD.S_ITS ---
PROCEDURE: XR CHEST 1V INDICATIONS: Shortness of breath TECHNIQUE: One view of the chest was acquired. COMPARISON: [facility], CR, XR CHEST 1V, 04/04/2023, 10:19. FINDINGS: Surgical changes and devices: None. Lungs and pleura: Minimal interstitial prominence. Mediastinum: Mediastinal contours appear normal. Heart size is enlarged. Bones and chest wall: No suspicious bony lesions. Overlying soft tissues appear unremarkable. IMPRESSION: Minimal interstitial prominence which could represent edema or potentially airspace disease such as pneumonia. Dictated by: Ashanti Cavazos M.D. on 04/16/2024 at 15:27 Approved by: Ashanti Cavazos M.D. on 04/16/2024 at 15:28
[2024-04-16 14:55] LABS: Add Manual Diff / Slide Review YES; Hematocrit 39.5 % (41-53); Hemoglobin 12.3 g/dL (13.5-17.5); Mean Corpuscular HGB Conc 31.1 % (30-36); Mean Corpuscular Hemoglobin 25.4 PG (26-34); Mean Corpuscular Volume 81.9 fL (80-100); Platelet Count 199 X10^3/uL (150-400); Red Blood Cell Count 4.83 X10^6/uL (4.5-5.9); Red Cell Distribution Width 17.1 % (11.6-14.8); White Blood Cell Count 15.8 X10^3/uL (4.5-11.0)
[2024-04-16 14:58] LABS: Lactate (Lactic Acid) 2.1 mmol/L (0.7-2.1)
[2024-04-16 14:59] LABS: Alanine Aminotransferase 20 IU/L (<50); Albumin 4.6 g/dL (3.5-5.0); Albumin Globulin Ratio 1.4 (1.0-2.8); Alkaline Phosphatase 113 U/L (38-126); Aspartate Aminotransferase 37 IU/L (17-59); BUN Creatinine Ratio 21.1 (6-22); Bilirubin Total 0.6 mg/dL (0.2-1.3); Blood Urea Nitrogen 26 mg/dL (9-20); Calcium 9.5 mg/dL (8.4-10.2); Carbon Dioxide 28 mmol/L (22-32); Chloride 103 mmol/L (98-107); Estimated Glomerular Filt Rate 57 mL/min (>60); Globulin 3.3 g/dL (1.7-4.1); Glucose 101 mg/dL (80-110); HEMOLYSIS 18 (0-50); Potassium 3.4 mmol/L (3.4-5.1); Sodium 142 mmol/L (137-145); Total Protein 7.9 g/dL (6.3-8.2)
[2024-04-16 15:02] LABS: INR 1.1 (0.9-1.3); Prothrombin Time 11.9 SECONDS (9.4-12.5)
[2024-04-16 15:10] LABS: NT-proBNP (BNP-Adult 18+) 566 pg/mL (<450); Troponin I 0.055 ng/mL (0.01-0.034)
[2024-04-16 16:18] LABS: Reflexed Lactate in 2 Hours Y
[2024-04-16 16:32] LABS: Neutrophils Absolute Manual 3792 /uL (3000-5900); Platelet Estimate Adequate on smear; RBC Morphology Normal Morphology; Smudge Cells 1+; Total Cells Counted 100
--- NOTE | 2024-04-16 19:06 | ED_ITS ---
HPI - SOB/Dyspnea General Chief Complaint: Shortness of Breath/Dyspnea Stated Complaint: poss collapsed lung Time Seen by Provider: 04/16/24 14:38 History of Present Illness HPI Narrative: 88-year-old male with a past medical history of hyperlipidemia spontaneous pneumothorax in 2022 2023 presents to the ED for chest tightness, he states it felt similar to when he had a collapsed lung previously therefore wanted to come into the ED for further evaluation treatment. He has not on any blood thinners. Denies any recent trauma or falls. Patient states currently he has not complaining of any of the symptoms. Denies any headache visual disturbances chest pain shortness breath fever chills nausea vomiting abdominal pain or any other GI/ symptoms. Related Data Home Medications Medication Instructions Recorded Confirmed cholecalciferol (vitamin D3) 50 50 mcg PO BID 07/03/21 04/02/23 mcg (2,000 unit) capsule (Vitamin D3) docusate sodium 100 mg capsule 100 mg PO BID 07/03/21 04/02/23 (Colace) latanoprost 0.005 % eye drops 1 drp ophthalmic (eye) BEDTIME 07/03/21 04/02/23 fzlygfiy-ckh-trnvf acid 0.4 1 tab PO DAILY 07/03/21 04/02/23 mg-lycopene 300 mcg-lutein 250 mcg tablet (Centrum Silver) nystatin 100,000 unit/gram topical 1 applic topical BID PRN Rash 07/03/21 04/02/23 powder omega-3 fatty acids 1,400 mg PO DAILY 07/03/21 04/02/23 rosuvastatin 40 mg tablet 40 mg PO DAILY 07/03/21 04/02/23 timolol 0.5 % eye drops 1 drp ophthalmic (eye) BID 07/03/21 04/02/23 triamterene 75 1 tab PO QAM 07/03/21 04/02/23 mg-hydrochlorothiazide 50 mg tablet vit C 250 mg-vit E 90 mg-zinc 40 1 cap PO DAILY 04/02/23 04/02/23 mg-copper 1 wt-zotxof-gkcmzc capsule (PreserVision AREDS-2) Allergies Allergy/AdvReac Type Severity Reaction Status Date / Time myacin Allergy Blister Uncoded 04/02/23 14:10 Review of Systems Review of Systems Narrative: General: Denies fever, chills, weight loss HEENT: Denies headache, eye drainage, eye irritation, head trauma, sore throat, voice change Cardiovascular: Denies any chest pain, palpitations, shortness of breath, tachycardia Respiratory: Positive chest tightness, Denies any shortness of breath, cough, wheeze, stridor GI/: Denies any abdominal pain, nausea, vomiting, diarrhea, bright red blood per rectum, melanotic stools, urinary frequency, urinary retention, dysuria, hematuria MSK: Denies any joint pain, muscle pains, swelling Skin: Denies any rashes, lesions, discoloration Neuro: Denies any headache, lightheadedness, dizziness, fainting, weakness Psych: Denies SI/HI Patient History Medical History History of prostate cancer CLL (chronic lymphocytic leukemia) Hyperlipidemia Hypertension Aortic stenosis Surgical History History of cataract extraction Status post implantation of artificial urinary sphincter History of prostatectomy Family History Father Congestive heart failure Mother Hypertension Social History household members: spouse Smoking Status: Never smoker alcohol intake: current Smoking Status: Never smoker alcohol intake frequency: holidays/special occasions only Exam Narrative Exam Narrative: General: Cooperative, comfortable, well-developed, not in acute distress HEENT: Normocephalic, atraumatic, PERRLA, normal sclera, eyelids normal, Neck: Active full range of motion, atraumatic Chest: Normal to inspection, negative crepitus, no overlying erythema ecchymosis Respiratory: Normal respiratory effort, not in acute respiratory distress, clear to auscultation bilaterally negative cough, wheeze, tachypnea, rhonchi, rales Cardiology: Regular rate rhythm negative gallop, murmur, rubs GI/: Normal to inspection, soft, nonrigid, no tenderness to palpation, exam deferred MSK: Full range of active range of motion of all 4 extremities, atraumatic Skin: No rashes lesions noted Neuro: Alert awake oriented x3, moves all 4 extremities spontaneously, cranial nerves intact, able to answer all questions appropriately follows commands appropriately Psych: Cooperative, negative suicidal or homicidal ideations Initial Vital Signs Initial Vital Signs: Vital Signs Temperature 98.1 F 04/16/24 14:19 Pulse Rate 87 04/16/24 14:19 Respiratory Rate 18 04/16/24 14:19 Blood Pressure 216/104 H 04/16/24 14:19 Pulse Oximetry 97 04/16/24 14:19 Oxygen Delivery Method Room Air 04/16/24 14:19 Course Orders Ordered: ED Orders 04/16/24 14:24 XR chest 1V Stat EKG-12 Lead Stat Measure peak expiratory flow ONCE RT Consult Eval and Treat NOW 04/16/24 14:33 Complete Blood Count AUTO DIFF Stat Comprehensive Metabolic Panel Stat Lactate (Lactic Acid) Stat NT-proBNP (BNP-Adult 18+) Stat Prothrombin Time INR Stat Troponin I Stat 04/16/24 18:55 Troponin I Stat Vital Signs Vital signs: Vital Signs - 8 hr 04/16/24 14:19 04/16/24 17:36 04/16/24 17:37 Temperature 98.1 F Pulse Rate 87 86 87 Respiratory Rate 18 20 20 Blood Pressure 216/104 H 213/100 H 187/83 H Pulse Oximetry 97 99 98 Oxygen Delivery Method Room Air 04/16/24 18:00 Temperature Pulse Rate 91 H Respiratory Rate 18 Blood Pressure 202/87 H Pulse Oximetry 98 Oxygen Delivery Method Room Air MDM - SOB/Dyspnea Differential Diagnosis Differential diagnosis: Likely congestive heart failure and other (Chest pain, pneumothorax, ACS, electrolyte abnormality) Lab Data 04/16/24 14:33 04/16/24 14:33 Labs: Lab Results 04/16/24 04/16/24 Range/Units 14:33 18:55 WBC 15.8 H (4.5-11.0) X10^3/uL RBC 4.83 (4.5-5.9) X10^6/uL Hgb 12.3 L (13.5-17.5) g/dL Hct 39.5 L (41-53) % MCV 81.9 (80-100) fL MCH 25.4 L (26-34) PG MCHC 31.1 (30-36) % RDW 17.1 H (11.6-14.8) % Plt Count 199 (150-400) X10^3/uL Neut % (Auto) Not Reportable Lymph % (Auto) Not Reportable [place] % (Auto) Not Reportable Eos % (Auto) Not Reportable Baso % (Auto) Not Reportable Lymph # (Auto) Not Reportable [place] # (Auto) Not Reportable Baso # (Auto) Not Reportable Total Counted 100 Seg Neutrophils % 24.0 L (38-70) % Lymphocytes % (Manual) 66.0 H (25-45) % Atypical Lymphs % 6.0 H ( - 0) % Monocytes % (Manual) 3.0 (2-11) % Eosinophils % (Manual) 1.0 L (2-4) % Neutrophils # (Manual) 3792 (8702-8796) /uL Smudge Cells 1+ H Platelet Estimate Adequate on smear RBC Morphology Normal morphology PT 11.9 (9.4-12.5) SECONDS INR 1.1 (0.9-1.3) Sodium 142 (137-145) mmol/L Potassium 3.4 (3.4-5.1) mmol/L Chloride 103 (98-107) mmol/L Carbon Dioxide 28 (22-32) mmol/L BUN 26 H (9-20) mg/dL Creatinine 1.23 (0.66-1.25) mg/dL Estimated GFR 57 L (>60) mL/min BUN/Creatinine Ratio 21.1 (6-22) Glucose 101 (80-110) mg/dL Lactate 2.1 1.5 (0.7-2.1) mmol/L Calcium 9.5 (8.4-10.2) mg/dL Total Bilirubin 0.6 (0.2-1.3) mg/dL AST 37 (17-59) IU/L ALT 20 (<50) IU/L Alkaline Phosphatase 113 (38-126) U/L Troponin I 0.055 H 0.060 H (0.01-0.034) ng/mL NT-Pro-B Natriuret Pep 566 H (<450) pg/mL Total Protein 7.9 (6.3-8.2) g/dL Albumin 4.6 (3.5-5.0) g/dL Globulin 3.3 (1.7-4.1) g/dL Albumin/Globulin Ratio 1.4 (1.0-2.8) Imaging Data Chest x-ray: Radiologist's Impression: [place] [id number] XRay Report Signed Patient: Jamal Lin MR#: [id number] : 1935 Acct:[id number] Age/Sex: 88 / M Date of Service: 04/16/24 Loc: ED Accession Number: [id number] Procedure: XR chest 1V Ordering Provider: Alisha Marc D.O. PROCEDURE: XR CHEST 1V INDICATIONS: Shortness of breath TECHNIQUE: One view of the chest was acquired. COMPARISON: [facility], , XR CHEST 1V, 04/04/2023, 10:19. FINDINGS: Surgical changes and devices: None. Lungs and pleura: Minimal interstitial prominence. Mediastinum: Mediastinal contours appear normal. Heart size is enlarged. Bones and chest wall: No suspicious bony lesions. Overlying soft tissues appear unremarkable. IMPRESSION: Minimal interstitial prominence which could represent edema or potentially airspace disease such as pneumonia. ECG Data Interpretation: EKG interpreted by ED physician 77 beats per minute sinus, QTC [address] changes no STEMI MDM Narrative Medical decision making narrative: 88-year-old male with a history of hyperlipidemia spontaneous pneumothorax presents for chest tightness started spontaneously earlier today. Wanted to be evaluated given states that similar symptoms when he was diagnosis spontaneous pneumothorax at previously. Patient had chest x-ray performed here did not show signs of a pneumothorax. No acute cardiopulmonary abnormalities. EKG was nonischemic in nature. Patient noted to have slight leukocytosis of 15.8 however patient states that he has a known history of chronically elevated white blood cells and low red blood cells states that he has been falling this for 10 years. Chem panel unremarkable, BNP only slightly elevated at 506 6, however patient without any pleural effusions not requiring any supplemental oxygen, initial troponin indeterminately elevated at 0.055 repeat slightly elevated in the indeterminate range of 0.060 however patient adamantly denies any chest pain EKG nonischemic, informed him of the possible repeating of the troponin, however he states that he feels fine only came in because he wanted to make sure he did not have a collapsed lung. 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 Disease processes change and evolve, if your symptoms worsen or if you develop any new symptoms that are concerning to you please return for evaluation. Your evaluation today does not show any evidence of any life- threatening/serious illnesses requiring admission to the hospital or surgery. Please follow-up with your doctor for re-evaluation in approximately 1 day. Seek immediate medical attention for any worrisome symptoms. *If you do not have a primary care provider please contact the [facility] Resource line at [phone]. They will ask some questions about your medical history and help get you set up with a doctor in the community. Prescriptions: No Action latanoprost 0.005 % Drops 1 drp OPHTHALMIC (EYE) BEDTIME Rx Instructions: both eyes timolol 0.5 % Drops 1 drp OPHTHALMIC (EYE) BID Rx Instructions: left eye docusate sodium [Colace] 100 mg Capsule 100 mg PO BID triamterene-hydrochlorothiazid 75-50 mg Tablet 1 tab PO QAM nystatin 100,000 unit/gram Powder 1 applic TOPICAL BID PRN (Reason: Rash) omega-3 fatty acids Capsule 1,400 mg PO DAILY rosuvastatin 40 mg Tablet 40 mg PO DAILY Centrum Silver 0.4-300-250 mg-mcg-mcg Tablet 1 tab PO DAILY cholecalciferol (vitamin D3) [Vitamin D3] 50 mcg (2,000 unit) Capsule 50 mcg PO BID PreserVision AREDS-2 250-90-40-1 mg Capsule 1 cap PO DAILY Referrals: Harpreet Stanley MD [Primary Care Provider] - Stand Alone Forms: Patient Portal/API/Survey
--- NOTE | 2024-04-16 19:13 | PC.NURSE ---
CHIEF SALES OFFICER note: this staking engineer answered pt. call light, pt. asked for some water, notified ANNITA Fan and she stated it was ok to give pt. some water. call light is within reach of pt.
[2024-04-16 19:26] LABS: Lactate 2HR (Lactic Acid Rflx) 1.5 mmol/L (0.7-2.1)
== END 2024-04-16 21:15 | disposition home or self-care (01) ==
PROVIDERS: Emergency Medicine; Emergency Provider Student in an Organized Health Care Education/Training Program; PCP Internal Medicine
DX: R07.9 Chest pain, unspecified (principal); E78.5 Hyperlipidemia, unspecified; Z87.09 Personal history of other diseases of the respiratory system; I45.10 Unspecified right bundle-branch block; R06.02 Shortness of breath
CPT/HCPCS: 71045; 80053; 83605; 83880; 84484; 85007; 85025; 85610; 93005; 99283; 99284